=== PATIENT | male | born 1940 | race Caucasian/White ===

== ENCOUNTER 2016-07-12 12:04 | Inpatient (IN) | payer MEDICARE ==
[~2016-07-12] VITALS: Ht 188 cm; Wt 126.8 kg
[2016-07-12] VITALS (7 sets, daily range): BP systolic 102–124; BP diastolic 58–90; PULSE 63–125; RESP 16–18; O2SAT 94–97
[~2016-07-12 12:04] MED LIST: ALPH100C PO; ASPI-973 PO; CHOL10008 PO; CHOL4PAC PO; CYAN500 PO; FINA5TAB9 PO; METO50TA3 PO; PRAV20TA2 PO; TAMS0.4C98 PO
[2016-07-12] MEDS ORDERED: 0.9% Sodium Chloride 1,000 ML IV ONE ×2 (12:37→14:55)
--- NOTE | 2016-07-12 12:37 | ED.REPORT ---
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 The patient doesn't remember the episode beyond feeling weak and "sliding to the ground." However, his found him lodged between the vanity and bathtub, unable to get up on his own, and believes he fell hard against handles on the cabinet. EMS found him pale and diaphoretic with bruises on his chest and head. En route he was in A-Fib with a pulse of 178 and a BP of 66/40. The patient also reports an intermittent cough onset a couple of weeks ago. He denies fevers, chills, chest pain, shortness of breath, neck pain, or any significant injuries. Nursing Notes Stated Complaint: GLF Chief Complaint: Neuro Symptoms/ Deficits Nursing Notes Reviewed: Yes Allergies: Coded Allergies: No Known Allergies (Verified Allergy, Unknown, 11/24/14) macadamia nut oil (Verified Allergy, Unknown, nausea, chest pain, 01/08/16) Scheduled Alpha Lipoic Acid (Alpha Lipoic Acid) 100 Mg Capsule 300 MG PO QAM Aspirin (Aspirin) 81 Mg Tablet 81 MG PO QAM Cholecalciferol (Vitamin D3) (Vitamin D3) 1,000 Unit Tab.chew 1,000 UNIT PO QAM Cholestyramine/Aspartame (Cholestyramine Light Packet) 4 Gm Powd.pack 4 GM PO DAILY at 1500 Cyanocobalamin (Vitamin B12) 500 Mcg Tablet 500 MCG PO QAM Finasteride (Finasteride) 5 Mg Tablet 5 MG PO QAM Metoprolol Tartrate (Metoprolol Tartrate) 50 Mg Tablet 50 MG PO BID Pravastatin (Pravastatin) 20 Mg Tablet 20 MG PO QAM Tamsulosin (Flomax) 0.4 Mg Capsule 0.4 MG PO BID General Time Seen by MD: 12:27 Chief Complaint Other (Syncope and Ground Level Fall) Hx Obtained From: Patient, Spouse, EMS Arrived By: Ambulance Sudden in Onset?: Yes Onset Occurred: Just prior to arrival Symptom Duration: Duration unknown Caused by: Fall on ground Context: Occurred at: Home injury Location: : Chest (Chest wall): Head Quality: Painful Severity: Current: Moderate Severity: Maximum: Moderate Associated with: Reports: Cough, Weakness, Denies: Fever, Shortness of breath Pertinent Negative: Relieved by nothing Context Related History: Reports Cancer, Reports Diabetes mellitus Recent Healthcare: No recent doctor visit Similar Sx Previous: No Past Medical History Past Medical History 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 Colloid cyst Reports: Cancer (stem cell seminoma), Diabetes mellitus, Hypertension Past Surgical History Total knee surgery x2 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 Brain surgery - colloid cyst removal Reports: Appendectomy, Cholecystectomy Smoking History Former Smoker Social History Alcohol Use: 1-3 per day Other Social History: Ambulatory Status Walker Review of Systems Full Review of Systems Constitutional: Denies: Chills, Fever Respiratory: Reports: Non-productive cough, Denies: Shortness of breath Cardiovascular: Denies: Chest pain Musculoskeletal: Denies: Neck pain Skin: Reports Bruising, Reports Diaphoresis Neurologic: Reports: Change LOC, Syncope, Weakness Complete sys rev & neg: except as marked. Physical Exam Vital Signs Vital Signs Date Time Temp Pulse Resp B/P Pulse Ox O2 Delivery O2 Flow Rate FiO2 07/12/16 15:35 101 16 105/90 97 Room Air 07/12/16 12:33 36.8 125 16 116/58 94 Room Air 2 Initial VS: Reviewed Psychiatric: Mood/affect normal, Behavior normal, Normal thought content General/Constitutional: Awake, Alert, No acute distress Head / Eyes: Normocephalic, No scleral icterus, Conjunctiva NL Trauma - General: Positive: Abrasion (Multiple ) ENT: Airway patent, Mucous membranes moist, Gums/dentition NL Trauma - General: Positive: Ecchymosis (Over upper lip) Neck: Supple, Full range of motion, Non-tender, No midline vertebral tend Respiratory / Chest: Breath sounds NL, Breath sounds = bilat, No respiratory distress Trauma - General: Positive: Abrasion (Anterior chest), Ecchymosis (Anterior chest), Hematoma (Anterior chest) Cardiovascular: Heart sounds NL, No murmurs Heart Rate / Rhythm: Positive: Irregular rhythm, Tachycardia Abdomen: Soft Trauma - General: Positive: Abrasion (Upper abdomen), Ecchymosis (Upper abdomen ), Hematoma (Upper abdomen) Upper Extremities Upper Extremity / MS: Neurologic intact, Vascular intact Trauma / Burn / Environmental: Positive: Ecchymosis (Volar aspect of right forearm ) Lower Extremity / Pelvis / MS: No deformity, No edema Trauma / Burn / Environmental: Positive: Hematoma (Over left knee) Ankle / Foot: No deformity, No edema Trauma / Burn / Environmental: Positive: Ecchymosis (Bruising over dorsum of right foot and toes ) Neurologic: Oriented X3, Speech NL Focal Weakness: Positive: Weakness diffuse L, Weakness diffuse R Interpretation & Diagnostics Lab Results Interpretation Result Diagram: 07/12/16 1305 07/12/16 1305 Test 07/12/16 12:25 07/12/16 13:05 Urine Color Yellow (YELLOW) Urine Appearance Clear (CLEAR,HAZY) Urine pH 5.0 (5.0-8.0) Urine Specific [place] 1.021 (1.003-1.035) Urine Protein Negativemg/dL (NEG,TRACE) Urine Glucose (UA) Negativemg/dL (NEGATIVE) Urine Ketones Negativemg/dL (NEGATIVE) Urine Occult Blood Small (NEGATIVE) Urine Nitrite Negative (NEGATIVE) Urine Bilirubin Negative (NEGATIVE) Urine Urobilinogen Normalmg/dL (NORMAL) Urine Leukocyte Esterase Negative (NEGATIVE) Urine RBC 3-10/hpf (0-2) Urine WBC 0-5/hpf (0-5) Urine Epithelial Cells Few/hpf (NONE-MOD) Urine Crystals None seen (NONE SEEN) Urine Bacteria Moderate/hpf (NONE-FEW) Urine Hyaline Casts Occasional/lpf (NONE) Urine Granular Casts None seen (NONE SEEN) Urine Waxy Casts None seen (NONE SEEN) Urine Red Blood Cell Casts None seen (NONE SEEN) Urine White Blood Cell Casts None seen (NONE SEEN) Urine Mucus None seen (None Seen) Urine Trichomonas None seen (NONE SEEN) Urine Yeast None (NONE SEEN) Urinalysis Comment None Urine Culture Reflexed Indicated White Blood Count 12.4th/mm3 (3.8-10.1) Red Blood Count 4.68mil/mm3 (4.40-5.80) Hemoglobin 14.3g/dL (13.8-17.2) Hematocrit 42.3% (41.0-50.0) Mean Corpuscular Volume 90.4fL (81-100) Mean Corpuscular Hemoglobin 30.6pg (27.0-35.0) Mean Corpuscular Hemoglobin Concent 33.8% (32.0-37.0) Red Cell Distribution Width 12.9% (12.3-15.4) Platelet Count 116bil/L (150-400) Neutrophils (%) (Auto) 62.3% (40-74) Lymphocytes (%) (Auto) 31.2% (14-46) Monocytes (%) (Auto) 5.6% (4-12) Eosinophils (%) (Auto) 0.6% (0-5) Basophils (%) (Auto) 0.1% (0-3) D-Dimer 1.9mg/L (<0.50) Sodium Level 139mEq/L (134-144) Potassium Level 3.9mEq/L (3.5-5.2) Chloride Level 103mEq/L (97-108) Carbon Dioxide Level 19mmol/L (18-29) Blood Urea Nitrogen 22mg/dL (8-27) Creatinine 1.75mg/dL (0.76-1.27) Estimat Glomerular Filtration Rate 41mL/min (>59) Glucose Level 112mg/dL (60-99) Lactic Acid Level 3.5mmol/L (0.4-2.0) Calcium Level 9.0mg/dL (8.5-10.1) Total Bilirubin 0.6mg/dL (0.0-1.2) Aspartate Amino Transf (AST/SGOT) 30U/L (0-50) Alanine Aminotransferase (ALT/SGPT) 28U/L (0-44) Alkaline Phosphatase 57U/L (25-160) Troponin T 0.032ug/L (0.0-0.011) Pro-B-Type Natriuretic Peptide 609.4pg/mL (0-376) Total Protein 6.4g/dL (6.4-8.4) Albumin 4.0g/dL (3.4-5.0) Procalcitonin < 0.05ng/mL (See Comment) ECG Interpretation ECG Interpretation: New atrial fibrillation rate 109 Abnormal R-wave progression, present on previous ECG 11/24/14 Left ventricular hypertrophy Time: 12:49 Interpreted by: ED physician X-Ray Chest Interpretation Chest Xray Interpretation: IMPRESSION: No acute cardiopulmonary disease process. Dictated by: Rhea Chen MD, PhD on 07/12/2016 at 13:13 View: Portable, 1 view Interpretation / Wet Read by: Interpret - Radiologist CT Head Interpretation IMPRESSION: 1. No acute intracranial findings. 2. Stable right frontal encephalomalacia and postsurgical change. 3. Findings likely associated with microvascular ischemic changes. Dictated by: Deena Branch M.D. on 07/12/2016 at 13:59 Study: Head CT no contrast Interpretation / Wet Read by: Interpret - Radiologist Re-Eval/Medical Decision Med Decision/Clinical Course Presents after syncopal episode with hypotension and newly noted atrial fibrillation initially rapid ventricular response. No evidence of intracranial hemorrhage. Elevated troponin, new atrial fibrillation with relatively rate controlled without additional medications in the 100 range Given aspirin after head CT was cleared started on IV heparin. Will be admitted for additional observation and presumed cardiac event unclear with the initial event was a conversion to atrial fibrillation or whether he actually had some type of non-STEMI with resultant atrial fibrillation. Blood pressure responded nicely to fluids. He has been chest pain free throughout the entire event. He does have significant abdominal bruising contusion hematoma from the syncopal episode where he hit presumably the sink in the bathroom when he fell forward. He also has multiple scratches and abrasions over the scalp forearms knees and toes all due to the fall related to the syncopal episode Source of Hx: Old records Time of Eval: 14:09 Patient Status: Condition improved Re-Evaluation/Progress Note: Patient rechecked. Time of Eval: 14:58 Patient Status: Condition improved Re-Evaluation/Progress Note: Discussed with patient and his x-ray, CT, and lab results, diagnosis, and plan for admit. Patient and his agree with plan for care and all questions were addressed. Consultation : Referral / Consult Name: Mahad Day MD Consulted With: Hospitalist Call Returned at: 15:12 Clinical Research Coordinator: Agrees with eval, Agrees with plan, Accepts admit Counseled Regarding: Diagnosis, Lab results, Need for admission Discharge & Departure Primary Impression: New onset atrial fibrillation Additional Impressions: Syncope Elevated lactic acid level Elevated troponin Fall from ground level Multiple contusions Renal insufficiency Disposition: ADMITTED TO HOSPITAL Discharge Condition All VS Reviewed: Yes Condition: Stable Referrals: Dario Mcwilliams MD (PCP) Crit Care Except Billable Proc Time Spent: 30-74 minutes Services Performed: Patient management by me, Time spent at bedside, Reviewing test results, Reviewing imaging, Discussing patient care, Documentation in record, Time with fam/surrogate Scribe Attestation Portions of this note were transcribed by Sherly Nobles. I, Dr. Conley, personally performed the history, physical exam, and medical decision-making; I reviewed and confirmed the accuracy of the information in the transcribed note. Signed by: Saji Grady, 07/12/2016, 15:12 copies to: Dario Mcwilliams MD Risk-Head Prob / Injury Nexus C-Spine Criteria No post midline tendernes, Not intoxicated, Normal level or alertness, No focal neuro deficits, No distracting injuries Head CT Imaging Patient Presents WITH: Loss of Conciousness Non Contrast CT Indicated For: >/= 60 yrs Age (with history of brain surgery) Short Term Memory Loss Trauma - Clavicle & Up WITH Loss of Conciousness RF Statements: Risk factors reviewed Kristen Conley MD Jul 12, 2016 12:37 SHERLY NOBLES Jul 12, 2016 13:05
--- NOTE | 2016-07-12 13:15 | DRSVH ---
PROCEDURE: X-RAY CHEST ONE VIEW, PORTABLE ([id number]) INDICATIONS: syncope TECHNIQUE: One view of the chest was acquired. COMPARISON: [facility], , CHEST 1VW (PORTABLE), 11/24/2014, 11:10. FINDINGS: Surgical changes and devices: Median sternotomy wires. Lungs and pleura: No pleural effusions or pneumothorax. Lungs are clear. Mediastinum: Mediastinal contours appear normal. Heart size is normal. Bones and chest wall: No suspicious bony lesions. Overlying soft tissues appear unremarkable. IMPRESSION: No acute cardiopulmonary disease process. Dictated by: Rhea Chen MD, PhD on 07/12/2016 at 13:13 Approved by: Rhea Chen MD, PhD on 07/12/2016 at 13:13
[2016-07-12 13:25] LABS: APPEARANCE,URINE CLEAR (CLEAR,HAZY); COLOR,URINE YELLOW (YELLOW); OCCULT BLOOD,URINE SMALL (NEGATIVE); UROBILINOGEN,URINE NORMAL (NORMAL)
[2016-07-12 13:25] LABS: BASOPHILS % (AUTO) 0.1 % (0-3); EOSINOPHILS % (AUTO) 0.6 % (0-5); MONOCYTES % (AUTO) 5.6 % (4-12); Mean Corpuscular Hemoglobin 30.6 pg (27.0-35.0); Mean Corpuscular Volume 90.4 fL (81-100); NEUTROPHILS % (AUTO) 62.3 % (40-74); Platelet Count 116 bil/L (150-400)
--- NOTE | 2016-07-12 14:04 | DRSVH ---
PROCEDURE: CT BRAIN WITHOUT CONTRAST ([id number]) INDICATIONS: syncope, fall with contusion head/face TECHNIQUE: Noncontrast 4.5 mm thick angled axial sections acquired from the foramen magnum to the vertex, with c oronal reformats. COMPARISON: [facility], CT, BRAIN W/O CONTRAST, 12/21/2011, 2:06. [facility] , CT, BRAIN W/O CONTRAST, 11/24/2014, 12:28. FINDINGS: Image quality: Excellent. CSF spaces: Basal cisterns are patent. No extra-axial fluid collections. The ventricles are symmet gilson in size and shape. Brain: No intracranial bleeds or masses. There is cerebral volume loss for age, with resultant vent ricular and sulcal prominence. There are periventricular and deep white matter chronic small vessel ischemic changes. Encephalomalacia in the right frontal lobe is redemonstrated unchanged from the von dy dated 11/24/14. There is intracranial internal carotid artery atherosclerosis. Skull and face: Right frontal craniotomy is redemonstrated. Calvarium and visualized facial bones ap pear intact, without suspicious lesions. Sinuses: There is a small left maxillary sinus mucous retention cyst. Visualized sinuses and mastoid s are otherwise clear. IMPRESSION: 1. No acute intracranial findings. 2. Stable right frontal encephalomalacia and postsurgical change. 3. Findings likely associated with microvascular ischemic changes. Dictated by: Deena Branch M.D. on 07/12/2016 at 13:59 Approved by: Deena Branch M.D. on 07/12/2016 at 13:59
[2016-07-12 14:05] LABS: TROPONIN T 0.032 ug/L (0.0-0.011)
[2016-07-12] MEDS ORDERED: Cholestyramine Resin Powder 4 Gm Packet PO ONE (14:50)
[2016-07-12] MEDS ORDERED: Heparin 5,000 Unit/mL Inj IVPUSH ONE (14:55)
[2016-07-12] MEDS ORDERED: Heparin 25K Unit/500mL 0.45 NS 25,000 UNIT in IV Premix 1 EACH IV ONE (14:55)
[2016-07-12] MEDS ORDERED: Ondansetron 2 mg/mL 2 mL Inj IVPUSH PRN (15:35)
[2016-07-12] MEDS ORDERED: Alum-Mag Hydrox-Simeth 30 mL Suspension PO PRN (15:35)
[2016-07-12] MEDS ORDERED: ALPHA LIPOIC ACID 300 MG PO SCH (17:40)
--- NOTE | 2016-07-12 21:13 | PCM.HPMED ---
Subjective Date of Service Jul 12, 2016 Primary Provider: Admitting Physician: Primary Care Physician: Dario Mcwilliams MD Attending Physician: Admit Status: From the Emergency Department Chief Complaint: Altered mental status following ground level fall History of Present Illness: Tonio Quinteros is a 75-year-old gentleman with a history of hypertension, hyperlipidemia, normal pressure hydrocephalus, chronic kidney disease, stage 3, diabetes mellitus type 2, sleep apnea and testicular cancer who presented to the ED after a syncopal episode and ground level fall. He states that he has been in usual health and went into the bathroom this morning to take his medications and the last thing he remembers is "sliding to the ground". He denies prodromal symptoms, loss of bladder or bowel control, history of seizures or prior syncope. He he uncertain how long he lost consciousness and his reported finding the patient wedged between the vanity and the bathtub and called EMS. Patient and endorse severe weakness immediately following the event and he was noted by EMS to be pale, diaphoretic and unable to get up on his own. He was noted to be in atrial fibrillation by paramedics and EKG in the ED confirmed atrial fibrillation with RVR. Patient denies prior history of irregular heart beat or diagnosis of atrial fibrillation. He denies fever, chills, chest pain or palpitations, shortness of breath, abdominal pain, nausea , vomiting, diarrhea or constipations. Endorses a non-productive cough, diaphoresis, and increased weakness, he walks with a walker at baseline due to neuropathy with gait disturbances following several back surgeries. In the ED, he was afebrile and tachycardic with a heart rate of 105-125. He was normotensive and slightly hypotensive at times with SBP in the mid 90s to low 100s and diastolic 50s-70s. Respiratory rate was 16 and he was satting 94-97% on room air. EKG showed atrial fibrillation/flutter with a heart rate of 109, left ventricular hypertrophy and abnormal R-wave progression when compared to previous EKG (11/24/14). Chest xray showed no acute process and CT head was negative for acute intracranial findings. Labs were significant for a slightly elevated white blood cell count at 12.4, lactic acid of 3.5, serum glucose 112, troponin 0.032, proBNP 609.4 and procalcitonin <0.05. He was given 2L of normal saline, aspirin after the head CT , started on heparin drip and admitted to rule out possible cardiac event as underlying cause of new onset atrial fibrillation. . Review of Systems: Pertinent positives and negatives as above in HPI. Complete review of systems conducted and otherwise negative. Allergies Coded Allergies: No Known Allergies (Verified Allergy, Unknown, 11/24/14) macadamia nut oil (Verified Allergy, Unknown, nausea, chest pain, 01/08/16) Home Medications Alpha Lipoic Acid 300 MG PO DAILY Aspirin 81 MG PO DAILY Cholecalciferol 1,000 UNIT PO DAILY Cholestyramine/Aspartame 4 GM PO BID Cyanocobalamin 1,000 MCG PO DAILY Finasteride 5 MG PO DAILY Metoprolol Tartrate 50 MG PO BID Pravastatin 20 MG PO DAILY Tamsulosin 0.4 MG PO DAILY PMH Hypertension Hyperlipidemia Heart murmur Sleep apnea,wears CPAP Chronic kidney disease, stage 3 Diabetes mellitus, type 2-uncontrolled Gallbladder disease Testicular cancer 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 Family History Patient denies family history of cardiovascular disease or diabetes. Reports extensive family history of cancers, including both parents and siblings. 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 External ears without defect. PERRLA, Anicteric sclerae, moist conjunctivae, and no lid lag. Oropharynx free of erythema and cobble stoning with moist mucosa. Neck: Supple with full range of motion. No jugular venous distension. No bruits. No lymphadenopathy or thyromegaly. Ecchymosis right mandible and neck. Cardiovascular: Irregularly irregular rhythm with no murmurs, rubs, or gallops appreciated Pulmonary: Clear to auscultation bilaterally with no crackles, wheezes, or rhonchi. Normal respiratory effort with no use of accessory muscles. Abdomen: Bowel tones present. Soft, nontender, nondistended. No hepatosplenomegaly or masses appreciated. Large contusion, anterior chest and upper abdomen. Sternal and abdominal surgical scars noted. Extremities: Brawny discoloration of lower extremities bilaterally, onychomycosis, no clubbing, cyanosis, edema, or lymphadenopathy appreciated. Skin: Normal temperature except distal lower extremities slightly cooler left foot > right, normal turgor and texture; no rash, ulcers, or subcutaneous nodules appreciated. Neurological: Cranial nerves II-XII grossly intact. Decreased muscles strength bilateral lower extremities left > right. Peripheral neuropathy. Patient with known gait impairment, uses walker at baseline. Psychiatric: Normal mood and affect. Alert and oriented to person, place, and time. Lab and Diagnostics Labs Laboratory Tests 07/12/16 12:25: Urine Color Yellow, Urine Appearance Clear, Urine pH 5.0, Urine Specific Portia 1.021, Urine Protein Negative, Urine Glucose (UA) Negative, Urine Ketones Negative, Urine Occult Blood Small, Urine Nitrite Negative, Urine Bilirubin Negative, Urine Urobilinogen Normal, Urine Leukocyte Esterase Negative , Urine RBC 3-10, Urine WBC 0-5, Urine Epithelial Cells Few, Urine Crystals None seen, Urine Bacteria Moderate, Urine Hyaline Casts Occasional, Urine Granular Casts None seen, Urine Waxy Casts None seen, Urine Red Blood Cell Casts None seen, Urine White Blood Cell Casts None seen, Urine Mucus None seen, Urine Trichomonas None seen, Urine Yeast None, Urinalysis Comment None, Urine Culture Reflexed Indicated 07/12/16 13:05: White Blood Count 12.4, Red Blood Count 4.68, Hemoglobin 14.3, Hematocrit 42.3, Mean Corpuscular Volume 90.4, Mean Corpuscular Hemoglobin 30.6, Mean Corpuscular Hemoglobin Concent 33.8, Red Cell Distribution Width 12.9, Platelet Count 116, Neutrophils (%) (Auto) 62.3, Lymphocytes (%) (Auto) 31.2, Monocytes ( %) (Auto) 5.6, Eosinophils (%) (Auto) 0.6, Basophils (%) (Auto) 0.1, D-Dimer 1.9 , Sodium Level 139, Potassium Level 3.9, Chloride Level 103, Carbon Dioxide Level 19, Blood Urea Nitrogen 22, Creatinine 1.75, Estimat Glomerular Filtration Rate 41, Glucose Level 112, Lactic Acid Level 3.5, Calcium Level 9.0 , Total Bilirubin 0.6, Aspartate Amino Transf (AST/SGOT) 30, Alanine Aminotransferase (ALT/SGPT) 28, Alkaline Phosphatase 57, Troponin T 0.032, Pro-B -Type Natriuretic Peptide 609.4, Total Protein 6.4, Albumin 4.0, Procalcitonin < 0.05 Result Diagram: 07/12/16 1305 07/12/16 1305 Microbiology Blood and urine cultures pending. X-Rays, CTs and MRIs X-RAY CHEST ONE VIEW, PORTABLE (07/12/16) IMPRESSION: No acute cardiopulmonary disease process. Dictated and approved by: Rhea Chen MD, PhD on 07/12/2016 at 13:13 CT BRAIN WITHOUT CONTRAST (07/12/16) IMPRESSION: 1. No acute intracranial findings. 2. Stable right frontal encephalomalacia and postsurgical change. 3. Findings likely associated with microvascular ischemic changes. Dictated and approved by: Deena Branch M.D. on 07/12/2016 at 13:59 . 12-lead ECG EKG showed atrial fibrillation/flutter with a heart rate of 109, left ventricular hypertrophy and abnormal R-wave progression when compared to previous EKG (11/24/14). Assessment & Plan Tonio Quinteros is a 75-year-old gentleman with a history of hypertension, hyperlipidemia, normal pressure hydrocephalus, chronic kidney disease, stage 3, diabetes mellitus type 2, sleep apnea and testicular cancer who presented to the ED after a syncopal episode and ground level fall resulted in multiple contusions. Admitted for new onset atrial fibrillation with rapid ventricular response and to rule out ACS as underlying etiology for Afib. 1. New onset atrial fibrillation with RVR, present on admission. Active. - EKG shows atrial fibrillation/flutter with heart rate 109, new compared to previous EKG (2014) - Initial troponin 0.032. - MEtoprolol for rate control - Trend troponin - Consider consult to cardiology for possible cardioversion. 2. Syncope, present on admission. Active. - Unknown cause, etiologies to consider dehydration, afib w/RVR, ACS, orthostatic hypotension, CVA, seizure. - Pt denies prior hx of syncope or seizures. CT head negative for acute intracranial process. - Hypotensive of admission with reportedly decreased oral intake, due to pain and difficulty ambulating. - Elevated lactic acid, troponin, proBNP and D-dimer. - Chest xray unremarkable - Continue IV fluids cautiously, trend troponin and lactic acid. - Carotid doppler, echocardiogram ordered. 3. Possible NSTEMI, present on admission. Active. - Pt has significant risk factors for cardiovascular disease including: age, gender, hypertension, hyperlipidemia, and diabetes. - Initial troponin elevated. Pt asymptomatic. - EKG without acute ischemic changes. - Continue heparin, aspirin, and statin. - NPO after midnight for possible procedures - Echocardiogram ordered 4. Elevated troponin, unknown chronicity. present on admission active. - May be due to demand ischemia secondary to Afib w/RVR, ACS or CKD. - Consider consult to cardiology, if trends up - Echo, heparin, aspirin and statin as above. - Trend troponin 5. Acute on chronic renal failure, present on admission. Active. - Pt has history of CKD stage III - Creatinine 1.75, above apparent baseline of ~1.2 - Avoid nephrotoxic medications. 6. Hypotension, acute. Present on admission. Active. - Pt hypertensive at baseline. - Likely due to dehydration - Received 2liters of normal saline in ED - Continue IV fluids cautiously, pending Echo results. - Monitor electrolytes, replace as needed 7. Multiple contusions, present on admission. Active. - Pt found in on floor in bathroom by his . Likely hit chest and chin on sink. - Monitor clinically for evidence of active bleeding. - Pt on heparin drip, will trend H/H and PTT. Chronic conditions, present on admission. 1. Hypertension- continue home dosing Metoprolol tartrate 50mg po BID 2. Hyperlipidemia- continue home dosing statin 3. Obstructive sleep apnea-wears CPAP, is to bring in 4. Diabetes mellitus, type 2- HbA1c pending, serum glucose 112, pt reports controlled without medications. low-dose correctional insulin. 5. History of testicular cancer 6. Benign prostatic hyperplasia- continue home dosing of finasteride and tamsulosin 7. Neuropathy- continue home dosing of alpha Lipoic acid Acetaminophen-fever/headache/mild/moderate pain Antiemetics, as needed Bowel regimen, as needed. Patient Status: Patient is admitted under observation status with expected length of stay less than 2 midnights due to severity of presenting symptoms, risk of adverse event, and complexity of treatment plan. Pain Evaluation: Adequate Pain Control GI Prophylaxis: Not indicated VTE Mechanical Devices: Intermittant Pneumatic CD Resuscitation Status: DNR/DNI:Do Not Resuscitate/Intubate Attending Statement The patient was seen and examined together with Dr. Morelos on and I agree with the history, exam and plan as outlined in the note above. . Marimar Morelos DO Jul 12, 2016 15:41 Mahad Day MD Jul 26, 2016 17:13
[2016-07-12] MEDS ORDERED: Acetaminophen IV 1,000 MG in IV Premix 1 EACH IV PRN (21:50)
[2016-07-12] MEDS ORDERED: Heparin 25K Unit/500mL 0.45 NS 25,000 UNIT in IV Premix 1 EACH IV SCH (21:50)
[2016-07-12] MEDS: Heparin 5,000 Unit/mL Inj IVPUSH PRN (22:26)
--- NOTE | 2016-07-12 22:37 | DRSVH ---
PROCEDURE: US BILATERAL DUPLEX DOPPLER IMAGING OF THE CAROTIDS ([id number]) INDICATIONS: syncope TECHNIQUE: Color and pulse Doppler interrogation was performed of both carotid systems, with image documentation and velocity measurements. COMPARISON: None. FINDINGS: All stenosis calculations are based on NASCET criteria. Right side: Brachial blood pressure: 105/69 mm Hg. Common carotid artery peak systolic velocity: 83 cm/sec. Internal carotid artery peak systolic velocity: 52 cm/sec. Internal carotid artery end diastolic velocity: 18 cm/sec. External carotid artery peak systolic velocity: 76 cm/sec. ICA/CCA peak systolic ratio: 0.63. Barr scale imaging description: Calcified plaque in the origin of the right internal carotid artery Percent internal carotid artery stenosis: Less than 50%. Vertebral artery: Flow direction is antegrade. Left side: Brachial blood pressure: Not measured due to the presence of intravenous access. Common carotid artery peak systolic velocity: 81 cm/sec. Internal carotid artery peak systolic velocity: 57 cm/sec. Internal carotid artery end diastolic velocity: 22 cm/sec. External carotid artery peak systolic velocity: 97 cm/sec. ICA/CCA peak systolic ratio: 0.7. Barr scale imaging description: Calcified plaque in the origin of the left internal carotid artery Percent internal carotid artery stenosis: Less than 50%. Vertebral artery: Flow direction is antegrade. IMPRESSION: Less than 50% stenosis of the origins of the internal carotid arteries bilaterally. Dictated by: Rhea Chen MD, PhD on 07/12/2016 at 22:35 Approved by: Rhea Chen MD, PhD on 07/12/2016 at 22:35
[2016-07-13] VITALS (7 sets, daily range): BP systolic 107–132; BP diastolic 64–79; PULSE 61–75; RESP 12–20; O2SAT 94–98
[2016-07-13 04:16] LABS: Mean Corpuscular Hemoglobin 30.3 pg (27.0-35.0); Mean Corpuscular Volume 91.2 fL (81-100); Platelet Count 117 bil/L (150-400)
[2016-07-13 04:17] LABS: BASOPHILS % (AUTO) 0 % (0-3); EOSINOPHILS % (AUTO) 3 % (0-5); MONOCYTES % (AUTO) 2 % (4-12); NEUTROPHILS % (AUTO) 25 % (40-74)
[2016-07-13] MEDS: Heparin 5,000 Unit/mL Inj IVPUSH PRN (04:26)
[2016-07-13 05:04] LABS: Magnesium 2.2 mg/dL (1.6-2.6)
[2016-07-13 05:06] LABS: TROPONIN T 0.038 ug/L (0.0-0.011)
--- NOTE | 2016-07-13 14:40 | DRSVH ---
[facility] [address] [place] [address] Echocardiogram Report Name: JEYSON ARAON DStudy Date: Height: 74 in Hospital Exam Location: [facility] Weight: 275 lb Gender: Male BSA: 2.5 m2 : 1940 Age: 75 yrs BP: 107/64 mmHg Reason For Study: A-FIB., SYNCOPE WITH FALL Ordering Physician: Performed By: Tegan Mao Referring Physician: Jenny Mcwilliams Interpretation Summary 1) Borderline concentric left ventricular hypertrophy with normal size, wall motion, and systolic function (EF 65-70%). 2) Normal right ventricular size and function. 3) Severely dilated left atrium. 4) Calcific mitral valve with mild transmitral inflow gradient (mean 4.6mmHg). 5) Mild aortic stenosis (mean gradient 18mmHg, valve area 1.9cm2). 6) Mild aortic regurgitation. 7) Moderately dilated ascending aorta (diameter 4.5cm) and mildly dilated aortic root (diameter 4.2cm). 8) Sinus rhythm present during the study. 9) Compared to the Echo done 12/22/2011, no significant change. Procedure: A two-dimensional transthoracic echocardiogram with color flow and Doppler was performed. The study quality was technically difficult. The apical views were difficult to obtain and are suboptimal in quality. A contrast injection of Definity was performed to improve assessment of LV function. Contrast was injected into an intravenous site in the left arm. A total of 3 cc of contrast was given. Comparison is made with the echocardiogram of 12-22-2011. The suprasternal notch views were difficult to obtain and are suboptimal in quality. The subcostal views were not obtained due to no visualization. The patient was in normal sinus rhythm during the exam. Left Ventricle: The LVOT diameter is 2.3 cm. The LVOT velocity is 142.9 cm/sec. The left ventricle is normal in size. There is borderline concentric left ventricular hypertrophy. Left ventricular systolic function is normal without focal wall motion abnormalities. The ejection fraction is estimated to be 65-70%. Right Ventricle: The right ventricle grossly appears normal in size with probable normal systolic function. Atria: The left atrium is severely dilated. The right atrium is mildly dilated. There is no Doppler evidence for an atrial septal defect. Mitral Valve: There is mild to moderate mitral annular calcification. The mitral valve leaflets appear mildly thickened, but open well. The mitral valve leaflets are mildly calcified. Mild transmitral inflow gradient with mean of 4.6mmHg. There is trace mitral regurgitation. Aortic Valve: The aortic valve is trileaflet. The aortic valve is mildly calcified. The peak aortic velocity is 281 cm/sec. The aortic valve mean gradient is 18 mmHg. The peak aortic velocity on the previous exam was 237 cm/sec. There is mild aortic stenosis. There is mild aortic regurgitation. Tricuspid Valve: The tricuspid valve is not well visualized, but is grossly normal. No tricuspid regurgitation. Pulmonary artery pressures cannot be estimated because of the lack of a measurable TR jet velocity. Pulmonic Valve: The pulmonic valve is not well visualized. There is a trace or physiologic amount of pulmonic regurgitation. Great Vessels: The aortic root is mildly dilated. The ascending aorta is moderately enlarged. The pulmonary artery is not well visualized, but is probably normal size. The inferior vena cava was not visualized. Pericardium/ Pleura There is no pericardial effusion. There is no pleural effusion. MMode/2D Measurements & Calculations LVIDd: 5.7 cm LA dimension: 5.3 cm RA long axis LVOT diam LVIDs: 3.0 cm FS: 48.0 % LA A2 area: 30.1 cm RA area AoV Opening IVSd: 1.0 cm LA A4 area: 33.4 cm LVPWd: 1.1 cm LA length (vol): 7.7 cm: 22.0 cm Ao root diam LA vol: 111.0 ml RA vol LA vol index : 67.2 ml asc Aorta RA Diam: 4.5 cm : 44.6 ml/m2 : 27.0 mm2 LV singh. diameter/BSA LV sys. diameter/BSA (cm/m^2): 2.3 (cm/m^2): 1.2 Doppler Measurements & Calculations Ao V2 max MV E max grant MV E/A: 1.1 PA V2 max : 291.3 cm/sec : 155.3 cm/sec Med Peak E' Grant : 86.3 cm/sec Ao max PG MV A max grant PA mean PG : 33.9 mmHg : 140.6 cm/sec E/E' med: 44.3 Ao mean PG MV P1/2t: 138.6 msec Lat Peak E' Grant PA Accel Time : 18.3 mmHg MVA(VTI): 1.7 cm2 : 0.14 sec LVOT Max Grant E/E' lat: 38.6 : 142.9 cm/sec Pulm A Revs Dur STELLA(I,D): 1.9 cm sev ratio MV A dur: 0.17 sec AI P1/2t : 806.7 msec AI dec slope : 128.7 cm/s2c MV V2 mean MV P1/2t max grant Ao V2 mean LV V1 max PG : 101.5 cm/sec : 203.6 cm/sec MV mean PG MVA(P1/2t): 1.6 cm2 Ao V2 VTI: 59.8 cm LV V1 VTI STELLA(V,D): 2.0 cm2 : 28.7 cm MV V2 VTI: 69.2 cm MV dec time : 0.47 sec PA V2 mean STELLA indexed to BSA Pulm A Revs Dur - MV : 64.3 cm/sec (cm^2/m^2): 0.78 A Dur: -0.03 msec Reading Physician:02:40 PM
--- NOTE | 2016-07-13 15:24 | NUR ---
Evaluation completed. Please go to "Notes" then click on "Assessments and Notes" (bottom left corner of screen). Then select appropriate discipline tab on top of screen.
--- NOTE | 2016-07-13 16:03 | NUR ---
Social Work: Initial Assessment D: Per EMR review, pt is a 75 year old male admitted for New Afib with RVR, NStemi, Syncope. Pt is Medicare with AARP supplement. PCP is Dario Mcwilliams MD. NOK is Iesha Quinteros, , . Advanced directives completed but not on file- SIGNALING PROJECT ENGINEER requested from pt. Readmit score not entered at this time. Pt discussed with PT, current recommendation is for Skilled Rehab. Pt is on day 1 of stay and will require 2 more midnights in order to access skilled rehab benefit. SIGNALING PROJECT ENGINEER discussed this with , the pt will be here through the weekend and receive a neurological workup on Friday. SIGNALING PROJECT ENGINEER met with pt at bedside. Sw role explained. See initial assessment. Pt lives on [address] with his . Pt uses a walker at baseline. SIGNALING PROJECT ENGINEER reviewed PT recommendation. Pt is in total agreement that he requires additional strengthening. Pt has a history at [facility] and [facility]. He does not want to go back to these facilities. Pt provided with SNF choice list. Pt requesting referrals sent to [facility] and [facility]. SIGNALING PROJECT ENGINEER faxed referrals to both facilities and provided access. [facility] and [facility] on chart. A: Pt who will likely require skilled rehab at time of discharge for continued strengthening and functional mobility improvement. P: [facility] and [facility] reviewing; SIGNALING PROJECT ENGINEER to continue to follow. LORENE Hopson Addendum: 07/13/16 at 1614 by RICHARD RENEE Amended: Links added.
[2016-07-13] MEDS: Cholestyramine Resin Powder 4 Gm Packet PO SCH ×2 (17:24→20:36)
--- NOTE | 2016-07-13 17:28 | PCM.PNMED ---
Subjective Date of Service Jul 13, 2016 Felicia Quinteros is a 75-year-old gentleman with a history of hypertension, hyperlipidemia, chronic kidney disease stage 3, diabetes mellitus type 2, normal pressure hydrocephalus, sleep apnea and testicular cancer who presented to the ED after a syncopal episode and ground level fall that resulted in multiple contusions. Admitted to the [facility] overnight to rule out underlying cardiac etiology as inciting event for new onset of atrial fibrillation and further evaluation of syncopal episode. This morning the patient is sitting up in bed, appears comfortable and is asking to eat. He endorses discomfort related to the bruising on his anterior chest and neck but otherwise is without complaint. Denies chest pain or palpitations, back/neck pain, nausea or vomiting. Exam Vital Signs Vital Sign - Last Date Time Temp Pulse Resp B/P Pulse Ox O2 Delivery O2 Flow Rate FiO2 07/13/16 16:12 70 20 124/77 94 Room Air 07/13/16 08:34 36.6 07/12/16 18:08 2 Intake and Output 07/12/16 07/12/16 07/13/16 Cumulative From/Thru 15:00 23:00 07:00 07/12/16 12:33 - 07/13/16 06:01 Intake Total 1000 ml 1000 ml 0 ml 2000 ml Output Total 675 ml 675 ml Balance 1000 ml 1000 ml -675 ml 1325 ml Intake Oral 0 ml 0 ml IV Total 1000 ml 1000 ml 2000 ml Output Urine Total 675 ml 675 ml # Voids 5 5 # Bowel Movements 0 0 Exam General appearance: Well-developed, overweight, elderly male, in no acute distress, appropriately interactive HEENT: Normocephalic, abrasions/bruising noted on scalp. External ears without defect. PERRLA, Anicteric sclerae.Moist mucosa. Neck: Supple with full range of motion, nontender. No jugular venous distension. Traumatic hematoma,neck and right angle of jaw. Cardiovascular: Regular rate and rhythm with no murmurs, rubs, or gallops appreciated Pulmonary: Clear to auscultation bilaterally with no crackles, wheezes, or rhonchi. Normal respiratory effort with no use of accessory muscles. Abdomen: Bowel tones present. Soft, nontender, nondistended. No masses appreciated. Large contusion, anterior chest and upper abdomen. Sternal and abdominal surgical scars noted. Extremities: Brawny discoloration of lower extremities bilaterally, onychomycosis, no clubbing, cyanosis, edema, or lymphadenopathy appreciated. Skin: Normal temperature except distal lower extremities slightly cooler left foot > right, normal turgor and texture; no rash, ulcers, or subcutaneous nodules appreciated. Neurological: Cranial nerves II-XII grossly intact. Decreased muscles strength bilateral lower extremities left > right. Peripheral neuropathy. Patient with known gait impairment, uses walker at baseline. IVs and Medications Medications Reviewed: Medications were reviewed in detail Lab and Diagnostics White Blood Count 15.6, Red Blood Count 4.32, Mean Corpuscular Volume 91.2, Mean Corpuscular Hemoglobin 30.3, Mean Corpuscular Hemoglobin Concent 33.2, Red Cell Distribution Width 12.9, Platelet Count 117, Neutrophils (%) (Auto) 25, Lymphocytes (%) (Auto) 70, Monocytes (%) (Auto) 2, Eosinophils (%) (Auto) 3, Basophils (%) (Auto) 0 Sodium Level 141, Potassium Level 4.4, Chloride Level 104, Carbon Dioxide Level 21, Blood Urea Nitrogen 21, Creatinine 1.64, Estimat Glomerular Filtration Rate 44, Glucose Level 114, Lactic Acid Level 1.8, Calcium Level 8.5, Magnesium Level 2.2, Total Bilirubin 0.5, Aspartate Amino Transf (AST/SGOT) 33, Alanine Aminotransferase (ALT/SGPT) 24, Alkaline Phosphatase 49, Troponin T 0.038, Total Protein 5.5, Albumin 3.4 Hemoglobin 12.9, Hematocrit 38.3, Activated Partial Thromboplast Time 46.7 Result Diagram: 07/13/16 1103 07/13/16 0356 Microbiology Urine culture grew STREP, PROBABLE ENTEROCOCCI SUSCEPTIBILITIES TO FOLLOW. Blood cultures with no growth so far. X-Rays, CTs and MRIs X-RAY CHEST ONE VIEW, PORTABLE (07/12/16) IMPRESSION: No acute cardiopulmonary disease process. Dictated and approved by: Rhea Chen MD, PhD on 07/12/2016 at 13:13 CT BRAIN WITHOUT CONTRAST (07/12/16) IMPRESSION: 1. No acute intracranial findings. 2. Stable right frontal encephalomalacia and postsurgical change. 3. Findings likely associated with microvascular ischemic changes. Dictated and approved by: Deena Branch M.D. on 07/12/2016 at 13:59 . 12-lead ECG EKG showed atrial fibrillation/flutter with a heart rate of 109, left ventricular hypertrophy and abnormal R-wave progression when compared to previous EKG (11/24/14). Cardiac Echo Impressions Echocardiogram Report- Interpretation Summary 1) Borderline concentric left ventricular hypertrophy with normal size, wall motion, and systolic function (EF 65-70%). 2) Normal right ventricular size and function. 3) Severely dilated left atrium. 4) Calcific mitral valve with mild transmitral inflow gradient (mean 4.6mmHg). 5) Mild aortic stenosis (mean gradient 18mmHg, valve area 1.9cm2). 6) Mild aortic regurgitation. 7) Moderately dilated ascending aorta (diameter 4.5cm) and mildly dilated aortic root (diameter 4.2cm). 8) Sinus rhythm present during the study. 9) Compared to the Echo done 12/22/2011, no significant change. Assessment & Plan Tonio Quinteros is a 75-year-old gentleman with a history of hypertension, hyperlipidemia, normal pressure hydrocephalus, chronic kidney disease stage 3, diabetes mellitus type 2, sleep apnea and testicular cancer who presented to the ED after a syncopal episode and ground level fall resulted in multiple contusions. Admitted for new onset atrial fibrillation with rapid ventricular response and to rule out ACS as underlying etiology for Afib as well as further evaluation of syncopal episode. 1. New onset atrial fibrillation with RVR, present on admission. Resolved. - EKG showed Afib/flutter w/heart rate of 109, new compared to previous EKG ( 2014) - Initial troponin 0.032 and remained elevated but stable, 0.038, 0.039, 0.038. - Converted to sinus rhythm around 11pm (07/12/16) - Continue metoprolol tartrate for rate control, 50mg BID - Consider consult to cardiology for possible cardioversion. - Echocardiogram, as above. 2. Syncope, present on admission. Active. - Likely secondary to dehydration/hypovolemia along w/Afib with RVR. - Pt denies prior hx of syncope or seizures. CT head negative for acute intracranial process. - Hypotensive of admission with reportedly decreased oral intake, due to pain and difficulty ambulating. - Lactic acid normalized; troponin, as above - Stop IV fluids, advancing diet and pt with good oral intake. - Carotid doppler no identifiable cause for syncope. Internal carotid arteries with < 50% stenosis - Echocardiogram, as above 3. Possible NSTEMI, present on admission. Active. - Less likely due to stable troponin, asymptomatic, EKG without acute ischemic changes. - Converted to normal sinus rhythm overnight and remains asymptomatic. - Pt with enlarging hematomas on anterior chest/neck from GLF. Discontinue heparin drip. - Continue aspirin, statin due to multiple cardiovascular risk factors. 4. Acute on chronic renal failure, present on admission. Active. - Pt has history of CKD stage III - Creatinine 1.75, above apparent baseline of ~1.2 - Avoid nephrotoxic medications. - Daily BMP 5. Hypotension, acute. Present on admission. Improving - Pt hypertensive at baseline. - Likely due to dehydration - Received 2liters of normal saline in ED - Echocardiogram, as above. - Stop IV fluids, patient with good oral intake - Monitor electrolytes, replace as needed 6. Multiple contusions, present on admission. Active. - Pt found in on floor in bathroom by his . Likely hit chest and chin on sink. - Enlarging neck hematoma, will discontinue heparin drip. - Monitor CBC 7. Elevated troponin, unknown chronicity. present on admission. Stable - Like multifactorial due to demand ischemia secondary to Afib with RVR and CKD. - Echocardiogram, as above. Stop heparin drip. - Continue to monitor clinically Chronic conditions, present on admission. 1. Hypertension- continue home dosing Metoprolol tartrate 50mg po BID 2. Hyperlipidemia- continue home dosing statin 3. Obstructive sleep apnea-wears CPAP, is to bring in home machine 4. Diabetes mellitus, type 2- HbA1c pending, serum glucose 112, pt reports controlled without medications. low-dose correctional insulin. 5. Benign prostatic hyperplasia- continue home dosing of finasteride and tamsulosin 6. Neuropathy- continue home dosing of alpha Lipoic acid 7. History of testicular cancer. Acetaminophen-fever/headache/mild/moderate pain Antiemetics, as needed Bowel regimen, as needed. Disposition: Anticipated discharge in 2-3 days, pending SNF placement and further evaluation of worsening gait disturbances and lower extremity weakness. Pain Evaluation: Adequate Pain Control GI Prophylaxis: Not indicated VTE Mechanical Devices: Intermittant Pneumatic CD Resuscitation Status: DNR/DNI:Do Not Resuscitate/Intubate Attending Statement The patient was seen and examined together with Dr. Morelos on 07/13/2016 and I agree with the history, exam and plan as outlined in the note above. . Marimar Morelos DO Jul 13, 2016 16:37 Mahad Day MD Jul 26, 2016 17:12
--- NOTE | 2016-07-13 18:22 | NUR ---
Bruising/Heparin drip Patient has large bruise on R side neck/chin r/t syncopal episode and fall. Patient on cardiac hep drip protocol. Bruise appeared to be increasing in size towards end of shift. Marked borders of bruise nad notified MD. Hep drip stopped and will continue to monitor.
[2016-07-14] VITALS (10 sets, daily range): BP systolic 118–129; BP diastolic 62–76; PULSE 60–76; RESP 12–18; O2SAT 94–97
[2016-07-14 03:18] LABS: BASOPHILS % (AUTO) 0.1 % (0-3); EOSINOPHILS % (AUTO) 1.8 % (0-5); MONOCYTES % (AUTO) 6.7 % (4-12); Mean Corpuscular Hemoglobin 29.9 pg (27.0-35.0); Mean Corpuscular Volume 91.9 fL (81-100); NEUTROPHILS % (AUTO) 20.4 % (40-74); Platelet Count 114 bil/L (150-400)
--- NOTE | 2016-07-14 03:37 | NUR ---
Pain and bruising. Patient bruising to the right neck has remained relatively unchanged throughout my shift. Patient moving all extremities well and A/Ox4. ABC's intact to baseline and patient reports mild pain. Patient reports that he does not need pain medications.
[2016-07-14] MEDS: Cholestyramine Resin Powder 4 Gm Packet PO SCH ×3 (03:55→15:00)
--- NOTE | 2016-07-14 12:26 | NUR ---
Observation information provided and explained to pt and his . Per she can not care for him at home, and is very angry that he is observation status and cannot go to SNF. I did try to explain Medicare's criteria, and they are aware that this was sent to secondary reviewer. SCANNING CLERK notified of anticipated difficulties with discharging pt.
--- NOTE | 2016-07-14 14:19 | NUR ---
Social Work: Continued Discharge Planning D: Pt discussed with KIKE TOSCANO MD place inpatient order on 07/13 however pt still does not meet inpatient criteria. CLINICAL VETERINARIAN notified MD at morning rounds and requested that she write order for Observation. MD states pt will still need MRI and neuro workup. KIKE RN and CLINICAL VETERINARIAN spoke with pt and about observation status and impact on SNF discharge. Pt and spouse are not happy about this. They state that they do not have the financial funds available to privately pay for skilled rehab. They declined to have CLINICAL VETERINARIAN get private pay rates stating that they already know that it will be thousands of dollars. They state that if pt is not switched to inpatient status and they cannot access SNF benefit they will be "forced to go home and figure it out." They state that if pt is able to access SNF they would like referral sent to [facility] of [facility] and [facility] as it is closer to home. Pt initially stated he did not want to go back there but he has changed his mind. Referral will be made to [facility] if pt switches to inpt status. [facility] has accepted the pt with Emily to follow. Private pay rate is $297/night for semi-private room; does not include therapies. [facility] accepted the pt pending bed availability. A: Pt who requiring 2 person assist during admission P: CLINICAL VETERINARIAN to continue to follow; if pt remains observation, pt to discharge home; if pt is switched to inpatient and has qualifying stay referral will be sent to [facility] [place] for review. LORENE Hopson
--- NOTE | 2016-07-14 16:14 | DRSVH ---
PROCEDURE: MRI LUMBAR SPINE WITH AND WITHOUT CONTRAST ([id number]) INDICATIONS: weakness, neuropathy TECHNIQUE: Noncontrast sagittal T1 spin echo and T2 fast spin echo, sagittal STIR, axial T1 and T2 fast spin ech o through the lumbar spine. In cases with scoliosis, additional coronal T2 fast spin echo may be per formed. After the administration of contrast, sagittal and axial T1 spin echo with fat saturation th rough the lumbar spine. COMPARISON: [facility], MR, LUMBAR SPINE W/O CONTRAST, 07/11/2014, 13:24. FINDINGS: Image quality: Excellent. Alignment and curvature: Grade 1 anterolisthesis of L4 on L5. Grade 1 retrolisthesis of L2 on L3. Marrow: Diffuse endplate degenerative signal changes, and spurring. Scattered small Schmorl's nodes. No acute vertebral body compression fractures. No suspicious marrow enhancement. Postsurgical cutler es related to posterior decompression from L2-L4. Spinal cord: Conus medullaris terminates at the L1-L2 level. Visualized spinal cord demonstrates no rmal signal, without suspicious enhancement. Paraspinous soft tissues: Mild diffuse ill-defined enhancement within the operative bed presumably po stoperative granulation tissue, for example prominent enhancing tissue seen on image 28 series 9 dors al to the canal however no definite intracanal extension or mass effect on the cord. L1-L2: Severe disc degeneration and broad-based posterior disc bulge and bilateral facet disease. Mil d residual canal narrowing. Severe bilateral foraminal stenoses, left greater than right. L2-L3: Broad-based posterior disc bulge and bilateral facet disease. Mild residual canal narrowing, m oderate left and [id number] right foraminal stenoses, no interval change. L3-L4: Broad-based posterior disc bulge and bilateral facet disease. Mild to moderate residual canal stenosis. Severe bilateral foraminal stenoses. No interval change L4-L5: Unchanged severe L4-L5 canal stenosis. Severe bilateral foraminal stenoses as before L5-S1: Broad-based posterior disc bulge and bilateral facet disease. Mild canal stenosis. Severe bila teral foraminal narrowing. Overall, no interval change IMPRESSION: Overall, no definite interval change since 07/11/14 as detailed above by spinal level. Di ffuse bilateral lumbar foraminal stenoses without definite interval change. Severe L4-L5 canal stenosis as before Postsurgical changes as above from L2-L4 with posterior decompression Grade 1 anterolisthesis of L4 on L5 Grade 1 retrolisthesis of L2 on L3 Dictated by: Waldemar Tristan M.D. on 07/14/2016 at 16:12 Approved by: Waldemar Tristan M.D. on 07/14/2016 at 16:12
--- NOTE | 2016-07-14 16:53 | NUR ---
UTI Patients UA came back positive for UTI. Patient started on PO Cipro BID. Patient denies symptoms of UTI, VSS.
--- NOTE | 2016-07-14 18:25 | PCM.PNMED ---
Subjective Date of Service Jul 14, 2016 Felicia Quinteros is a 75-year-old gentleman with a past medical history significant for hypertension, hyperlipidemia, chronic kidney disease stage 3, diabetes mellitus type 2, peripheral neuropathy, sleep apnea and testicular cancer who presented to the [facility] ED after a syncopal episode and ground level fall that resulted in multiple contusions. Hospital day #3. Overnight: There were no acute events. Telemetry overnight: Sinus rhythm, heart rate 60-70s, with frequent PVCs. The patient is resting in bed comfortably and in no acute distress. He denies headache, sore throat, cough, shortness of breath, chest pain, abdominal pain, nausea, vomiting, fever, chills, dysuria, or diarrhea. He is voiding without difficulty. He complains of constipation. He is up with 2 person assistance. He reports profound weakness and is unable to stand or walk on his own that he believes was abrupt in onset compounded onto a chronic component. . Exam Vital Signs Vital Sign - Last Date Time Temp Pulse Resp B/P Pulse Ox O2 Delivery O2 Flow Rate FiO2 07/14/16 11:27 36.8 62 16 118/74 96 Room Air 07/12/16 18:08 2 Intake and Output 07/13/16 07/13/16 07/14/16 Cumulative From/Thru 15:00 23:00 07:00 07/12/16 12:33 - 07/14/16 04:37 Intake Total 178 ml 910 ml 3088 ml Output Total 875 ml 1550 ml Balance 178 ml 35 ml 1538 ml Intake Oral 910 ml 910 ml IV Total 178 ml 2178 ml Output Urine Total 875 ml 1550 ml # Voids 5 # Bowel Movements 0 Exam General appearance: Well-developed, overweight, elderly male, in no acute distress, appropriately interactive HEENT: Normocephalic, abrasions/bruising noted on scalp. External ears without defect. PERRLA, Anicteric sclerae.Moist mucosa. Neck: Supple with full range of motion, nontender. No jugular venous distension. Traumatic hematoma,neck and right angle of jaw. Cardiovascular: Regular rate and rhythm with no murmurs, rubs, or gallops appreciated Pulmonary: Clear to auscultation bilaterally with no crackles, wheezes, or rhonchi. Normal respiratory effort with no use of accessory muscles. Abdomen: Bowel tones present. Soft, nontender, nondistended. No masses appreciated. Large contusion, anterior chest and upper abdomen. Sternal and abdominal surgical scars noted. Extremities: Brawny discoloration of lower extremities bilaterally, onychomycosis, no clubbing or cyanosis. Trace pitting edema bilaterally. Skin: Normal temperature; no rash, ulcers, or subcutaneous nodules appreciated. Neurological: Cranial nerves II-XII grossly intact. Decreased muscles strength bilaterally in lower extremities L> R. Peripheral neuropathy. Patient with known gait impairment, uses walker at baseline. IVs and Medications Medications Reviewed: Medications were reviewed in detail Lab and Diagnostics Item Value Date Time Calcium Level 8.2 mg/dL L 07/14/16 0230 Total Bilirubin 0.6 mg/dL 07/14/16 0230 Aspartate Amino Transf (AST/SGOT) 26 U/L 07/14/16 0230 Alanine Aminotransferase (ALT/SGPT) 21 U/L 07/14/16 0230 Alkaline Phosphatase 49 U/L 07/14/16 0230 Total Protein 5.4 g/dL L 07/14/16 0230 Albumin 3.4 g/dL 07/14/16 0230 Result Diagram: 07/14/16 0230 07/14/16 023 Microbiology Urine culture grew Enterococcus resistant to tetracycline. Blood cultures show no growth after 24 hours. . X-Rays, CTs and MRIs X-RAY CHEST ONE VIEW, PORTABLE (07/12/16) IMPRESSION: No acute cardiopulmonary disease process. Dictated and approved by: Rhea Chen MD, PhD on 07/12/2016 at 13:13 CT BRAIN WITHOUT CONTRAST (07/12/16) IMPRESSION: 1. No acute intracranial findings. 2. Stable right frontal encephalomalacia and postsurgical change. 3. Findings likely associated with microvascular ischemic changes. Dictated and approved by: Deena Branch M.D. on 07/12/2016 at 13:59 . 12-lead ECG EKG showed atrial fibrillation/flutter with a heart rate of 109, left ventricular hypertrophy and abnormal R-wave progression when compared to previous EKG (11/24/14). Cardiac Echo Impressions Echocardiogram Interpretation Summary 1) Borderline concentric left ventricular hypertrophy with normal size, wall motion, and systolic function (EF 65-70%). 2) Normal right ventricular size and function. 3) Severely dilated left atrium. 4) Calcific mitral valve with mild transmitral inflow gradient (mean 4.6mmHg). 5) Mild aortic stenosis (mean gradient 18mmHg, valve area 1.9cm2). 6) Mild aortic regurgitation. 7) Moderately dilated ascending aorta (diameter 4.5cm) and mildly dilated aortic root (diameter 4.2cm). 8) Sinus rhythm present during the study. 9) Compared to the Echo done 12/22/2011, no significant change. . Assessment & Plan Tonio Quinteros is a 75-year-old gentleman with a past medical history significant for hypertension, hyperlipidemia, chronic kidney disease stage 3, diabetes mellitus type 2, peripheral neuropathy, sleep apnea and testicular cancer who presented to the [facility] ED after a syncopal episode and ground level fall that resulted in multiple contusions. Admitted for new onset atrial fibrillation with rapid ventricular response and to rule out ACS as underlying etiology for, as well as, further evaluation of syncopal episode. Hospital day # 3. 1. Syncope, present on admission. Active. - Likely secondary to dehydration/hypovolemia, atrial fibrillation with RVR, and urinary tract infection. - Patient denies prior history of syncope or seizures. CT head negative for acute intracranial process. - Hypotensive on admission with reportedly decreased oral intake and pain and difficulty ambulating. - Lactic acid normalized; Initial troponin 0.032 and remained elevated but stable. - Discontinued IV fluids. Encourage patient to take an fluids. - Carotid Doppler ultrasound shows no identifiable cause for syncope. Internal carotid arteries with < 50% stenosis as above. - Echocardiogram, as above. 2. Profound acute on chronic lower extremity weakness, present on admission. Active. - Patient has profound neuropathy of his lower extremities and fell onto his knees and has 2 large contusions to bilateral knees which may be attributing. - Ordered lumbar MRI without contrast to assess lumbar spine and possible radiculopathy or spinal stenosis. - Patient has foot drop on the right. Profound weakness in an L4-L5 distribution of lower extremities L> R. - Ordered CPK as patient is on a statin. - Patient has seen Dr. flower in the past. Consider neurology consultation for evaluation. 3. Acute complicated urinary tract infection, present on admission. Active. - Likely contributing to the patient's profound weakness and started ciprofloxacin 400 mg IV every 12 hours. - Urine culture grew out enterococcus species resistant to tetracycline. - Consider ID consult for possible ESBL? 4. Acute on chronic renal failure, present on admission. Active. - Likely secondary to prerenal azotemia and acute urinary tract infection. - Patient has CKD stage III at baseline. - Creatinine 1.75, above apparent baseline of ~1.2 - Avoid nephrotoxic medications. - Monitor urine output. 5. New onset atrial fibrillation with RVR, present on admission. Resolved. - EKG showed Afib/flutter with a heart rate of 109, new compared to previous EKG (2014). - Initial troponin 0.032 and remained elevated but stable, 0.038, 0.039, 0.038. - Converted to sinus rhythm around 11pm on 07/12/16. - Continue metoprolol tartrate 50 mg twice a day for rate control. - Echocardiogram, as above. 6. Acute hypotension, present on admission. Improving - The patient is hypertensive at baseline and was hypotensive likely secondary to dehydration. - He received 2L of normal saline in ED. - Echocardiogram, as above. - Stopped IV fluids and continue to encourage good oral intake. - Monitor electrolytes and replace as needed. 7. Multiple contusions, present on admission. Active. - The patient was found down in the bathroom and likely hit his chest and chin on bathroom sink. - Enlarging neck hematoma, discontinued heparin drip. - Monitor hemoglobin and hematocrit closely. 8. Elevated troponin, unknown chronicity. present on admission. Stable - Like multifactorial due to demand ischemia secondary to Afib with RVR and CKD. - Echocardiogram, as above. Stopped heparin drip. - Continue to monitor clinically. Chronic conditions: Diarrhea, chronic. - Patient has had diarrhea since his cholecystectomy. Likely secondary to overproduction and chronic release of bile. - Continue cholestyramine once daily. Hypertension, chronic. - Continue home dosing metoprolol titrate 50mg twice a day. Hyperlipidemia, chronic. - Continue pravastatin 20 mg daily at bedtime. Obstructive sleep apnea on CPAP, chronic. - Encourage patient to use home machine. Diabetes mellitus type II, non-insulin using. Chronic. - HbA1c 6.0%. - Patient reports that this is been controlled with diet and exercise alone. - Continue low-dose correctional scale insulin. Benign prostatic hyperplasia, , chronic. - Continue home dosing of finasteride 5 mg daily and tamsulosin 0.4 mg twice a day. Idiopathic neuropathy, chronic. - Continue home dosing of alpha Lipoic acid History of testicular cancer. Acetaminophen-fever/headache/mild/moderate pain Antiemetics, as needed Bowel regimen, as needed. Disposition: Anticipated discharge in 2-3 days, pending SNF placement and further evaluation of worsening gait disturbances and lower extremity weakness. . GI Prophylaxis: Not indicated VTE Mechanical Devices: Intermittant Pneumatic CD Resuscitation Status: DNR/DNI:Do Not Resuscitate/Intubate Attending Statement The patient was seen and examined together with Dr. Acuña on 07-14-16 and I agree with the history, exam and plan as outlined in the note above. Brook Acuña DO Jul 14, 2016 11:59 Magan Kilgore MD Jul 15, 2016 16:54
[2016-07-14] MEDS: Ciprofloxacin Inj 400 MG in IV Premix 1 EACH IV SCH (19:36)
[2016-07-14] MEDS: Polyethylene Glycol (PEG) 17 Gm Powder PO PRN (19:38)
[2016-07-15] VITALS (8 sets, daily range): BP systolic 86–127; BP diastolic 59–73; PULSE 60–99; RESP 16–22; O2SAT 94–97
[2016-07-15 03:08] LABS: BASOPHILS % (AUTO) 0.1 % (0-3); EOSINOPHILS % (AUTO) 1.9 % (0-5); MONOCYTES % (AUTO) 2.3 % (4-12); Mean Corpuscular Volume 91.3 fL (81-100); NEUTROPHILS % (AUTO) 21.6 % (40-74); Platelet Count 132 bil/L (150-400)
[2016-07-15 03:33] LABS: Magnesium 2.1 mg/dL (1.6-2.6); Phosphorus 4.1 mg/dL (2.5-4.9)
--- NOTE | 2016-07-15 03:49 | NUR ---
Bruising and sleep Patients neck is slightly more bruised this evening. Patient reports that his neck feels sore but that it is not severely painful. Patient requested that I let him sleep as much as I can. Room was darkened and door was closed. Patient was checked on intermittently.
[2016-07-15] MEDS: Polyethylene Glycol (PEG) 17 Gm Powder PO PRN (09:09)
[2016-07-15] MEDS: Ciprofloxacin Inj 400 MG in IV Premix 1 EACH IV SCH ×2 (09:12→19:58)
--- NOTE | 2016-07-15 11:29 | NUR ---
Gave access and faxed facesheet to [facility].
--- NOTE | 2016-07-15 11:32 | NUR ---
Case Management: IMM given and explained to pt at 11:20. Any STOKES RN
--- NOTE | 2016-07-15 11:39 | NUR ---
GI/ P - Pt c/o constipation/impaction, pt states that it hurts for him to sit in chair from the pain. shift supervisor rn had administered Senna and Miralax with no results. He had tried to have a bowel movement on the bedside commode with a resulting small hard bowel movement. I - Administered Senna and Miralax with prune juice and hot tea. Encouraged patient to drink extra fluids. E - Pt was able to have an extra large, firm bowel movement, with relief of pain S - Pt call light within reach, bed in low locked position, upper rails up only
--- NOTE | 2016-07-15 12:03 | NUR ---
[facility] can accept with to follow. Updated RN CASE MGR
[2016-07-15] MEDS: Cholestyramine Resin Powder 4 Gm Packet PO SCH (15:13)
--- NOTE | 2016-07-15 16:03 | PCM.PNMED ---
Subjective Date of Service Jul 15, 2016 Felicia Quinteros is a 75-year-old gentleman with a history of hypertension, hyperlipidemia, chronic kidney disease stage 3, diabetes mellitus type 2, normal pressure hydrocephalus, sleep apnea and testicular cancer who presented to the ED after a syncopal episode and ground level fall that resulted in multiple contusions. Hospital day #4 No acute events overnight. Per nursing, patient patient c/o constipation. He was given Senna and Miralax with only a small, firm bowel movement reported. Patient endorses constipation this morning, stating that he has not had a bowel movement in 3 or 4 days. He denies abdominal pain, nausea, vomiting, chest pain , shortness of breath, headache or dizziness. He reports ongoing generalized weakness and bilateral lower extremity weakness as well as increased urinary frequency. Denies dysuria or hematuria. Exam Vital Signs Vital Sign - Last Date Time Temp Pulse Resp B/P Pulse Ox O2 Delivery O2 Flow Rate FiO2 07/15/16 11:38 36.9 82 18 110/67 97 Room Air 07/12/16 18:08 2 Intake and Output 07/14/16 07/14/16 07/15/16 Cumulative From/Thru 15:01 23:01 07:01 07/12/16 12:33 - 07/15/16 06:41 Intake Total 1040 ml 960 ml 5088 ml Output Total 500 ml 1175 ml 3225 ml Balance 540 ml -215 ml 1863 ml Intake Oral 1040 ml 760 ml 2710 ml IV Total 200 ml 2378 ml Output Urine Total 500 ml 1175 ml 3225 ml # Voids 5 # Bowel Movements 0 Exam General appearance: Well-developed, overweight, elderly male, in no acute distress, appropriately interactive HEENT: Normocephalic, abrasions/bruising noted on scalp. External ears without defect. PERRLA, Anicteric sclerae.Moist mucosa. Neck: Supple with full range of motion, nontender. No jugular venous distension. Traumatic hematoma,neck and right angle of jaw. Cardiovascular: Regular rate and rhythm with no murmurs, rubs, or gallops appreciated Pulmonary: Clear to auscultation bilaterally with no crackles, wheezes, or rhonchi. Normal respiratory effort with no use of accessory muscles. Abdomen: Bowel tones present. Soft, diffusely tender, nondistended. No masses appreciated. Large contusion, anterior chest and upper abdomen. Sternal and abdominal surgical scars noted. Extremities: Brawny discoloration of lower extremities bilaterally, onychomycosis, no clubbing, cyanosis, edema, or lymphadenopathy appreciated. Skin: Normal temperature except distal lower extremities slightly cooler left foot > right, normal turgor and texture; no rash, ulcers, or subcutaneous nodules appreciated. Neurological: Cranial nerves II-XII grossly intact. Decreased muscles strength bilateral lower extremities left > right. Peripheral neuropathy. Patient with known gait impairment, uses walker at baseline. IVs and Medications Medications Reviewed: Medications were reviewed in detail Lab and Diagnostics White Blood Count 14.2, Red Blood Count 4.04, Hemoglobin 12.1, Hematocrit 36.9, Mean Corpuscular Volume 91.3, Mean Corpuscular Hemoglobin 30.0, Mean Corpuscular Hemoglobin Concent 32.8, Red Cell Distribution Width 12.8, Platelet Count 132, Neutrophils (%) (Auto) 21.6, Lymphocytes (%) (Auto) 73.9, Monocytes ( %) (Auto) 2.3, Eosinophils (%) (Auto) 1.9, Basophils (%) (Auto) 0.1 Sodium Level 137, Potassium Level 4.4, Chloride Level 103, Carbon Dioxide Level 22, Blood Urea Nitrogen 22, Creatinine 1.46, Estimat Glomerular Filtration Rate 50, Glucose Level 106, Calcium Level 8.3, Phosphorus Level 4.1, Magnesium Level 2.1, Total Bilirubin 0.6, Aspartate Amino Transf (AST/SGOT) 30, Alanine Aminotransferase (ALT/SGPT) 23, Alkaline Phosphatase 53, Total Creatine Kinase 159, Total Protein 5.6, Albumin 3.3 Result Diagram: 07/15/16 0300 07/15/16 0300 Microbiology Urine culture grew Enterococcus resistant to tetracycline. Blood cultures show no growth after 24 hours. . X-Rays, CTs and MRIs X-RAY CHEST ONE VIEW, PORTABLE (07/12/16) IMPRESSION: No acute cardiopulmonary disease process. Dictated and approved by: Rhea Chen MD, PhD on 07/12/2016 at 13:13 CT BRAIN WITHOUT CONTRAST (07/12/16) IMPRESSION: 1. No acute intracranial findings. 2. Stable right frontal encephalomalacia and postsurgical change. 3. Findings likely associated with microvascular ischemic changes. Dictated and approved by: Deena Branch M.D. on 07/12/2016 at 13:59 . 12-lead ECG EKG showed atrial fibrillation/flutter with a heart rate of 109, left ventricular hypertrophy and abnormal R-wave progression when compared to previous EKG (11/24/14). Cardiac Echo Impressions Echocardiogram Interpretation Summary 1) Borderline concentric left ventricular hypertrophy with normal size, wall motion, and systolic function (EF 65-70%). 2) Normal right ventricular size and function. 3) Severely dilated left atrium. 4) Calcific mitral valve with mild transmitral inflow gradient (mean 4.6mmHg). 5) Mild aortic stenosis (mean gradient 18mmHg, valve area 1.9cm2). 6) Mild aortic regurgitation. 7) Moderately dilated ascending aorta (diameter 4.5cm) and mildly dilated aortic root (diameter 4.2cm). 8) Sinus rhythm present during the study. 9) Compared to the Echo done 12/22/2011, no significant change. . Assessment & Plan Tonio Quinteros is a 75-year-old gentleman with a history of hypertension, hyperlipidemia, normal pressure hydrocephalus, chronic kidney disease stage 3, diabetes mellitus type 2, sleep apnea and testicular cancer who presented to the ED after a syncopal episode and ground level fall resulted in multiple contusions. Admitted for new onset atrial fibrillation with rapid ventricular response and to rule out ACS as underlying etiology for Afib as well as further evaluation of syncopal episode. Hospital day #4. 1. Acute on chronic lower extremity weakness, present on admission. Active. - Hx of multiple back surgeries and chronic neuropathy of his lower extremities with ongoing gait disturbance. Ambulates with walker at baseline. - Lumbar MRI shows no definite interval change from 07/11/14. B/l lower ext bruising, concern for underlying knee injury related to the GLF contributing gait disturbance. - Continue physical therapy. Consider neurology consultation for evaluation, if symptoms do not start to improve. 2. Acute complicated urinary tract infection, present on admission. Active. - Likely contributing to patient's weakness. - Urine culture positive for enterococcus species resistant to tetracycline. - Continue ciprofloxacin 400 mg IV every 12 hours. 3. Syncope, present on admission. Resolved. - Likely secondary to dehydration/hypovolemia along w/Afib with RVR and mild aortic stenosis. - Pt denies prior hx of syncope or seizures. CT head negative for acute intracranial process. - Carotid doppler no identifiable cause for syncope. Internal carotid arteries with < 50% stenosis - Echocardiogram, as above - Lactic acid normalized; troponin slightly elevated but stable. 4. New onset atrial fibrillation with RVR, present on admission. Resolved. - EKG showed Afib/flutter w/heart rate of 109, new compared to previous EKG ( 2014) - Initial troponin 0.032 and remained elevated but stable, 0.038, 0.039, 0.038. - Converted to sinus rhythm around 11pm (07/12/16) - Continue metoprolol tartrate for rate control, 50mg BID - Echocardiogram, as above. 5. Acute on chronic renal failure, present on admission. Active. - Pt has history of CKD stage III - Creatinine 1.75, above apparent baseline of ~1.2 - Avoid nephrotoxic medications and encourage po intake. - Daily BMP 6. Hypotension, acute. Present on admission. Resolved. - Likely due to dehydration. Pt hypertensive at baseline. - Fluid responsive, rec'd 2L normal saline 7. Multiple contusions, present on admission. Active. - Pt found in on floor in bathroom by his . Likely hit chest and chin on sink. - Enlarging neck hematoma. Discontinued heparin drip, hospital day#2. - Monitor CBC 8. Elevated troponin, unknown chronicity. present on admission. Stable - Like multifactorial due to demand ischemia secondary to Afib with RVR and CKD. - Echocardiogram, as above. Heparin drip stopped on day#2, as ACS less likely and pt with enlarging hematomas. - Continue to monitor clinically 9. Possible NSTEMI, present on admission. Resolved. - Less likely due to stable troponin, asymptomatic, EKG without acute ischemic changes. - Converted to normal sinus rhythm. Remains asymptomatic. - Continue aspirin, statin due to multiple cardiovascular risk factors. 10. Chronic Hypertension, present on admission. Active - Continue home dosing of metoprolol tartrate 50mg po BID 11. Chronic Hyperlipidemia, present on admission. Active. - Continue home dosing statin 12. Chronic diabetes mellitus, type 2. present on admission. Active. - Reportedly controlled without medications. - HbA1c 6.0 - Serum glucose 106-121. - Low-dose correctional insulin as needed. 13. Diarrhea, chronic. present on admission. Active. - Patient has had diarrhea since his cholecystectomy. Likely secondary to overproduction and chronic release of bile. - Continue cholestyramine once daily. 14. Benign prostatic hyperplasia, chronic. present on admission - Continue home dosing of finasteride and tamsulosin 15. Chronic neuropathy, present on admission. Active - Continue home dosing of alpha lipoid acid 16. History of testicular cancer, present on admission. Resolved. Acetaminophen-fever/headache/mild/moderate pain Antiemetics, as needed Bowel regimen, as needed. Disposition: Anticipated discharge in 2-3 days, pending SNF placement and further evaluation of worsening gait disturbances and lower extremity weakness. . Pain Evaluation: Adequate Pain Control GI Prophylaxis: Not indicated VTE Prophylaxis: Sub-Q Heparin (Unfractionated) VTE Mechanical Devices: Intermittant Pneumatic CD Resuscitation Status: DNR/DNI:Do Not Resuscitate/Intubate Attending Statement The patient was seen and examined together with Dr. Morelos on 07-15-16 and I agree with the history, exam and plan as outlined in the note above. Marimar Morelos DO Jul 15, 2016 13:20 Magan Kilgore MD Jul 16, 2016 15:58
[2016-07-15] MEDS: Heparin 5,000 Unit/mL Inj SUBQ SCH ×2 (17:02→23:52)
[2016-07-16] VITALS (8 sets, daily range): BP systolic 103–144; BP diastolic 62–86; PULSE 59–89; RESP 16–20; O2SAT 94–97
[2016-07-16 03:33] LABS: Mean Corpuscular Volume 91.4 fL (81-100)
--- NOTE | 2016-07-16 06:43 | NUR ---
[facility] clustered per pt request to promote sleep, all VSS, no fever/pain overnight. Tele SR 60s most of night.
[2016-07-16] MEDS: Heparin 5,000 Unit/mL Inj SUBQ SCH ×3 (08:06→23:58)
[2016-07-16] MEDS: Ciprofloxacin Inj 400 MG in IV Premix 1 EACH IV SCH ×2 (08:06→20:05)
--- NOTE | 2016-07-16 12:27 | PCM.PNMED ---
Subjective Date of Service Jul 16, 2016 Felicia Quinteros is a 75-year-old gentleman with a history of hypertension, hyperlipidemia, chronic kidney disease stage 3, diabetes mellitus type 2, normal pressure hydrocephalus, sleep apnea and testicular cancer who presented to the ED after a syncopal episode and ground level fall that resulted in multiple contusions. Hospital day #4 No acute events overnight. Per nursing, patient had a restful night and remains in sinus rhythm with a heart rate in the 60s. Patient states that he had bowel movement yesterday and today, feels much better. He reports fatigue following physical therapy but endorses increased strength and states that he was able to ambulate further today. He denies abdominal pain, nausea, vomiting, chest pain, shortness of breath, headache or dizziness. He reports ongoing generalized weakness and bilateral lower extremity weakness but this appears to be improving. Denies dysuria or hematuria. Exam Vital Signs Vital Sign - Last Date Time Temp Pulse Resp B/P Pulse Ox O2 Delivery O2 Flow Rate FiO2 07/16/16 08:02 36.6 75 16 132/69 97 07/16/16 02:54 Room Air 07/12/16 18:08 2 Intake and Output 07/15/16 07/15/16 07/16/16 Cumulative From/Thru 15:00 23:00 07:00 07/12/16 12:33 - 07/16/16 06:26 Intake Total 200 ml 980 ml 300 ml 6568 ml Output Total 1000 ml 650 ml 4875 ml Balance 200 ml -20 ml -350 ml 1693 ml Intake Oral 980 ml 300 ml 3990 ml IV Total 200 ml 2578 ml Output Urine Total 1000 ml 650 ml 4875 ml # Voids 5 10 # Bowel Movements 2 2 Exam General appearance: Well-developed, overweight, elderly male, in no acute distress, appropriately interactive HEENT: Normocephalic, abrasions/bruising noted on scalp. External ears without defect. PERRLA, Anicteric sclerae.Moist mucosa. Neck: Supple with full range of motion, nontender. No jugular venous distension. Traumatic hematoma,neck and right angle of jaw. Cardiovascular: Regular rate and rhythm with no murmurs, rubs, or gallops appreciated Pulmonary: Clear to auscultation bilaterally with no crackles, wheezes, or rhonchi. Normal respiratory effort with no use of accessory muscles. Abdomen: Bowel tones present. Soft, diffusely tender, nondistended. No masses appreciated. Large contusion, anterior chest and upper abdomen. Sternal and abdominal surgical scars noted. Extremities: Brawny discoloration of lower extremities bilaterally, onychomycosis, no clubbing, cyanosis, edema, or lymphadenopathy appreciated. Skin: Normal temperature except distal lower extremities slightly cooler left foot > right, normal turgor and texture; no rash, ulcers, or subcutaneous nodules appreciated. Neurological: Cranial nerves II-XII grossly intact. Decreased muscles strength bilateral lower extremities left > right. Peripheral neuropathy. Patient with known gait impairment, uses walker at baseline. IVs and Medications Medications Reviewed: Medications were reviewed in detail Lab and Diagnostics White Blood Count 14.9, Red Blood Count 4.06, Hemoglobin 12.2, Hematocrit 37.1, Mean Corpuscular Volume 91.4, Mean Corpuscular Hemoglobin 30.0, Mean Corpuscular Hemoglobin Concent 32.9, Red Cell Distribution Width 12.9, Platelet Count 148 Sodium Level 137, Potassium Level 4.4, Chloride Level 102, Carbon Dioxide Level 22, Blood Urea Nitrogen 21, Creatinine 1.68, Estimat Glomerular Filtration Rate 43, Glucose Level 138, Calcium Level 8.8, Total Bilirubin 0.5, Aspartate Amino Transf (AST/SGOT) 30, Alanine Aminotransferase (ALT/SGPT) 29, Alkaline Phosphatase 57, Total Protein 5.5, Albumin 3.4 Result Diagram: 07/16/16 02507/16/16 025 Microbiology Urine culture grew Enterococcus resistant to tetracycline. Blood cultures show no growth after 24 hours. . X-Rays, CTs and MRIs X-RAY CHEST ONE VIEW, PORTABLE (07/12/16) IMPRESSION: No acute cardiopulmonary disease process. Dictated and approved by: Rhea Chen MD, PhD on 07/12/2016 at 13:13 CT BRAIN WITHOUT CONTRAST (07/12/16) IMPRESSION: 1. No acute intracranial findings. 2. Stable right frontal encephalomalacia and postsurgical change. 3. Findings likely associated with microvascular ischemic changes. Dictated and approved by: Deena Branch M.D. on 07/12/2016 at 13:59 . 12-lead ECG EKG showed atrial fibrillation/flutter with a heart rate of 109, left ventricular hypertrophy and abnormal R-wave progression when compared to previous EKG (11/24/14). Cardiac Echo Impressions Echocardiogram Interpretation Summary 1) Borderline concentric left ventricular hypertrophy with normal size, wall motion, and systolic function (EF 65-70%). 2) Normal right ventricular size and function. 3) Severely dilated left atrium. 4) Calcific mitral valve with mild transmitral inflow gradient (mean 4.6mmHg). 5) Mild aortic stenosis (mean gradient 18mmHg, valve area 1.9cm2). 6) Mild aortic regurgitation. 7) Moderately dilated ascending aorta (diameter 4.5cm) and mildly dilated aortic root (diameter 4.2cm). 8) Sinus rhythm present during the study. 9) Compared to the Echo done 12/22/2011, no significant change. . Assessment & Plan Tonio Quinteros is a 75-year-old gentleman with a history of hypertension, hyperlipidemia, normal pressure hydrocephalus, chronic kidney disease stage 3, diabetes mellitus type 2, sleep apnea and testicular cancer who presented to the ED after a syncopal episode and ground level fall resulted in multiple contusions. Admitted for new onset atrial fibrillation with rapid ventricular response and to rule out ACS as underlying etiology for Afib as well as further evaluation of syncopal episode. Hospital day #5. 1. Acute on chronic lower extremity weakness, present on admission. Improving - Hx of multiple back surgeries and chronic neuropathy of his lower extremities with ongoing gait disturbance. Ambulates with walker at baseline. - Lumbar MRI shows no definite interval change from 07/11/14. - Continue physical therapy. 2. Acute complicated urinary tract infection, present on admission. Active. - Likely contributing to patient's weakness. - Urine culture positive for enterococcus species resistant to tetracycline. - Continue ciprofloxacin 400 mg IV every 12 hours. 3. Syncope, present on admission. Resolved. - Likely secondary to dehydration/hypovolemia along w/Afib with RVR and mild aortic stenosis. - Pt denies prior hx of syncope or seizures. CT head negative for acute intracranial process. - Carotid doppler no identifiable cause for syncope. Internal carotid arteries with < 50% stenosis - Echocardiogram, as above - Lactic acid normalized; troponin slightly elevated but stable. 4. New onset atrial fibrillation with RVR, present on admission. Resolved. - EKG showed Afib/flutter w/heart rate of 109, new compared to previous EKG ( 2015) - Initial troponin 0.032 and remained elevated but stable, 0.038, 0.039, 0.038. - Converted to sinus rhythm around 11pm (07/12/16) - Continue metoprolol tartrate for rate control, 50mg BID - Echocardiogram, as above. 5. Acute on chronic renal failure, present on admission. Active. - Pt has history of CKD stage III - Creatinine 1.75, above apparent baseline of ~1.2 - Avoid nephrotoxic medications and encourage po intake. - Daily BMP 6. Hypotension, acute. Present on admission. Resolved. - Likely due to dehydration. Pt hypertensive at baseline. - Fluid responsive, rec'd 2L normal saline 7. Multiple contusions, present on admission. Active. - Pt found in on floor in bathroom by his . Likely hit chest and chin on sink. - Enlarging neck hematoma. Discontinued heparin drip, hospital day#2. - Monitor CBC 8. Elevated troponin, unknown chronicity. present on admission. Stable - Like multifactorial due to demand ischemia secondary to Afib with RVR and CKD. - Echocardiogram, as above. Heparin drip stopped on day#2, as ACS less likely and pt with enlarging hematomas. - Continue to monitor clinically 9. Possible NSTEMI, present on admission. Resolved. - Less likely due to stable troponin, asymptomatic, EKG without acute ischemic changes. - Converted to normal sinus rhythm. Remains asymptomatic. - Continue aspirin, statin due to multiple cardiovascular risk factors. 10. Chronic Hypertension, present on admission. Active - Continue home dosing of metoprolol tartrate 50mg po BID 11. Chronic Hyperlipidemia, present on admission. Active. - Continue home dosing statin 12. Chronic diabetes mellitus, type 2. present on admission. Active. - Reportedly controlled without medications. - HbA1c 6.0 - Serum glucose 106-121. - Low-dose correctional insulin as needed. 13. Diarrhea, chronic. present on admission. Active. - Patient has had diarrhea since his cholecystectomy. Likely secondary to overproduction and chronic release of bile. - Continue cholestyramine once daily. 14. Benign prostatic hyperplasia, chronic. present on admission - Continue home dosing of finasteride and tamsulosin 15. Chronic neuropathy, present on admission. Active - Continue home dosing of alpha lipoid acid 16. History of testicular cancer, present on admission. Resolved. Acetaminophen-fever/headache/mild/moderate pain Antiemetics, as needed Bowel regimen, as needed. Disposition: Anticipated discharge in 2-3 days, pending SNF placement and further evaluation of worsening gait disturbances and lower extremity weakness. Pain Evaluation: Adequate Pain Control GI Prophylaxis: Not indicated VTE Prophylaxis: Sub-Q Heparin (Unfractionated) VTE Mechanical Devices: Intermittant Pneumatic CD Resuscitation Status: DNR/DNI:Do Not Resuscitate/Intubate Attending Statement The patient was seen and examined together with Dr. Morelos on 07-16-16 and I agree with the history, exam and plan as outlined in the note above. Marimar Morelos DO Jul 16, 2016 12:05 Magan Kilgore MD Jul 17, 2016 08:25
[2016-07-16] MEDS ORDERED: 0.9% Sodium Chloride 250 ML ONE (13:47)
[2016-07-16] MEDS: Cholestyramine Resin Powder 4 Gm Packet PO SCH (15:04)
--- NOTE | 2016-07-16 17:50 | NUR ---
Shoulder Pain Patient c/o 10/21 shoulder pain. Pain occurs with movement and is a problem he has had for a while. Patient refused tylenol stating "I don't like tylenol and it's not that bad".
[2016-07-17] VITALS (7 sets, daily range): BP systolic 92–127; BP diastolic 54–76; PULSE 62–81; RESP 16–21; O2SAT 95–97
[2016-07-17 03:47] LABS: Mean Corpuscular Hemoglobin 30.2 pg (27.0-35.0); Mean Corpuscular Volume 91.2 fL (81-100)
--- NOTE | 2016-07-17 04:40 | NUR ---
Restful Night Night uneventful, care clustered and attempted to allow pt to sleep as much as possible, tele SR high 50s- low 60s w/ PVCs. Pt denied pain overnight.
[2016-07-17] MEDS: Heparin 5,000 Unit/mL Inj SUBQ SCH ×3 (08:26→23:47)
[2016-07-17] MEDS: Ciprofloxacin Inj 400 MG in IV Premix 1 EACH IV SCH (08:27)
[2016-07-17] MEDS: Cholestyramine Resin Powder 4 Gm Packet PO SCH (14:57)
--- NOTE | 2016-07-17 16:20 | PCM.PNMED ---
Subjective Date of Service Jul 17, 2016 Felicia Quinteros is a 75-year-old gentleman with a history of hypertension, hyperlipidemia, chronic kidney disease stage 3, diabetes mellitus type 2, normal pressure hydrocephalus, sleep apnea and testicular cancer who presented to the ED after a syncopal episode and ground level fall that resulted in multiple contusions. Hospital day #6 No acute events overnight. Per nursing, patient had a restful night, care clustered and remains in sinus rhythm on telemetry with heart rate in high 50s- low 60s with PVCs. Today, patient is resting comfortably and visiting with his . He states that he continues to feel stronger and was tired after physical therapy yesterday. He endorses left shoulder pain for which he typically takes NSAIDs for at home with adequate relief. Otherwise patient is without complaint. He denies chest pain, shortness of breath, fever, chills, headache, dizziness, abdominal pain, nausea, vomiting, diarrhea or constipation. Exam Vital Signs Vital Sign - Last Date Time Temp Pulse Resp B/P Pulse Ox O2 Delivery O2 Flow Rate FiO2 07/17/16 04:04 36.5 62 16 122/76 96 Room Air 07/12/16 18:08 2 Intake and Output 07/16/16 07/16/16 07/17/16 Cumulative From/Thru 15:00 23:00 07:00 07/12/16 12:33 - 07/17/16 01:34 Intake Total 200 ml 1320 ml 8088 ml Output Total 1050 ml 5925 ml Balance 200 ml 270 ml 2163 ml Intake Oral 1120 ml 5110 ml IV Total 200 ml 200 ml 2978 ml Output Urine Total 1050 ml 5925 ml # Voids 10 # Bowel Movements 2 Exam General appearance: Well-developed, overweight, elderly male, in no acute distress, appropriately interactive HEENT: Normocephalic, abrasions/bruising noted on scalp. External ears without defect. PERRLA, Anicteric sclerae.Moist mucosa. Neck: Supple with full range of motion, nontender. No jugular venous distension. Traumatic hematoma,neck and right angle of jaw. Cardiovascular: Regular rate and rhythm with no murmurs, rubs, or gallops appreciated Pulmonary: Clear to auscultation bilaterally with no crackles, wheezes, or rhonchi. Normal respiratory effort with no use of accessory muscles. Abdomen: Bowel tones present. Soft, diffusely tender, nondistended. No masses appreciated. Large contusion, anterior chest and upper abdomen. Sternal and abdominal surgical scars noted. Extremities: Brawny discoloration of lower extremities bilaterally, onychomycosis, no clubbing, cyanosis, edema, or lymphadenopathy appreciated. Skin: Normal temperature except distal lower extremities slightly cooler left foot > right, normal turgor and texture; no rash, ulcers, or subcutaneous nodules appreciated. Neurological: Cranial nerves II-XII grossly intact. Decreased muscles strength bilateral lower extremities left > right. Peripheral neuropathy. Patient with known gait impairment, uses walker at baseline. IVs and Medications Medications Reviewed: Medications were reviewed in detail Lab and Diagnostics White Blood Count 15.1, Red Blood Count 4.07, Hemoglobin 12.3, Hematocrit 37.1, Mean Corpuscular Volume 91.2, Mean Corpuscular Hemoglobin 30.2, Mean Corpuscular Hemoglobin Concent 33.2, Red Cell Distribution Width 12.9, Platelet Count 147 Sodium Level 135, Potassium Level 4.4, Chloride Level 101, Carbon Dioxide Level 23, Blood Urea Nitrogen 21, Creatinine 1.58, Estimat Glomerular Filtration Rate 46, Glucose Level 113, Calcium Level 8.6 Result Diagram: 07/17/16 0300 07/17/16 0300 Microbiology Urine culture grew Enterococcus resistant to tetracycline. Blood cultures show no growth after 24 hours. . X-Rays, CTs and MRIs X-RAY CHEST ONE VIEW, PORTABLE (07/12/16) IMPRESSION: No acute cardiopulmonary disease process. Dictated and approved by: Rhea Chen MD, PhD on 07/12/2016 at 13:13 CT BRAIN WITHOUT CONTRAST (07/12/16) IMPRESSION: 1. No acute intracranial findings. 2. Stable right frontal encephalomalacia and postsurgical change. 3. Findings likely associated with microvascular ischemic changes. Dictated and approved by: Deena Branch M.D. on 07/12/2016 at 13:59 . 12-lead ECG EKG showed atrial fibrillation/flutter with a heart rate of 109, left ventricular hypertrophy and abnormal R-wave progression when compared to previous EKG (11/24/14). Cardiac Echo Impressions Echocardiogram Interpretation Summary 1) Borderline concentric left ventricular hypertrophy with normal size, wall motion, and systolic function (EF 65-70%). 2) Normal right ventricular size and function. 3) Severely dilated left atrium. 4) Calcific mitral valve with mild transmitral inflow gradient (mean 4.6mmHg). 5) Mild aortic stenosis (mean gradient 18mmHg, valve area 1.9cm2). 6) Mild aortic regurgitation. 7) Moderately dilated ascending aorta (diameter 4.5cm) and mildly dilated aortic root (diameter 4.2cm). 8) Sinus rhythm present during the study. 9) Compared to the Echo done 12/22/2011, no significant change. . Assessment & Plan Tonio Quinteros is a 75-year-old gentleman with a history of hypertension, hyperlipidemia, normal pressure hydrocephalus, chronic kidney disease stage 3, diabetes mellitus type 2, sleep apnea and testicular cancer who presented to the ED after a syncopal episode and ground level fall resulted in multiple contusions. Admitted for new onset atrial fibrillation with rapid ventricular response and to rule out ACS as underlying etiology for Afib as well as further evaluation of syncopal episode. Hospital day #6. 1. Acute on chronic lower extremity weakness, present on admission. Improving - Hx of multiple back surgeries and chronic neuropathy of his lower extremities with ongoing gait disturbance. Ambulates with walker at baseline. - Lumbar MRI shows no definite interval change from 07/11/14. - Continue physical therapy and acetaminophen as needed for musculoskeletal pain 2. Acute complicated urinary tract infection, present on admission. Active. - Likely contributing to patient's weakness. - Urine culture positive for enterococcus species resistant to tetracycline. - Continue ciprofloxacin 400 mg IV every 12 hours. - Transition to oral antibiotics prior to discharge. 3. Syncope, present on admission. Resolved. - Likely secondary to dehydration/hypovolemia along w/Afib with RVR and mild aortic stenosis. - Pt denies prior hx of syncope or seizures. CT head negative for acute intracranial process. - Carotid doppler no identifiable cause for syncope. Internal carotid arteries with < 50% stenosis - Echocardiogram, as above - Lactic acid normalized; troponin slightly elevated but stable. 4. New onset atrial fibrillation with RVR, present on admission. Resolved. - EKG showed Afib/flutter w/heart rate of 109, new compared to previous EKG ( 2014) - Initial troponin 0.032 and remained elevated but stable, 0.038, 0.039, 0.038. - Converted to sinus rhythm around 11pm (07/12/16) - Continue metoprolol tartrate for rate control, 50mg BID - Echocardiogram, as above. - [id number] score of 3, patient candidate for anticoagulation. Will hold on warfarin due to history of and risk of falls. - Will continue daily aspirin 81mg and add clopidogrel 75mg daily. Pt to follow up with PCP following discharge. 5. Acute on chronic renal failure, present on admission. Active. - Pt has history of CKD stage III - Creatinine 1.75, above apparent baseline of ~1.2 - Avoid nephrotoxic medications and encourage po intake. - Daily BMP 6. Hypotension, acute. Present on admission. Resolved. - Likely due to dehydration. Pt hypertensive at baseline. - Fluid responsive, rec'd 2L normal saline 7. Multiple contusions, present on admission. Active. - Pt found in on floor in bathroom by his . Likely hit chest and chin on sink. - Enlarging neck hematoma. Discontinued heparin drip, hospital day#2. - Monitor CBC 8. Elevated troponin, unknown chronicity. present on admission. Stable - Like multifactorial due to demand ischemia secondary to Afib with RVR and CKD. - Echocardiogram, as above. Heparin drip stopped on day#2, as ACS less likely and pt with enlarging hematomas. - Continue to monitor clinically 9. Possible NSTEMI, present on admission. Resolved. - Less likely due to stable troponin, asymptomatic, EKG without acute ischemic changes. - Converted to normal sinus rhythm. Remains asymptomatic. - Continue aspirin, statin due to multiple cardiovascular risk factors. 10. Chronic Hypertension, present on admission. Active - Continue home dosing of metoprolol tartrate 50mg po BID 11. Chronic Hyperlipidemia, present on admission. Active. - Continue home dosing statin 12. Chronic diabetes mellitus, type 2. present on admission. Active. - Reportedly controlled without medications. - HbA1c 6.0 - Serum glucose 106-121. - Low-dose correctional insulin as needed. 13. Diarrhea, chronic. present on admission. Active. - Patient has had diarrhea since his cholecystectomy. Likely secondary to overproduction and chronic release of bile. - Continue cholestyramine once daily. 14. Benign prostatic hyperplasia, chronic. present on admission - Continue home dosing of finasteride and tamsulosin 15. Chronic neuropathy, present on admission. Active - Continue home dosing of alpha lipoid acid 16. History of testicular cancer, present on admission. Resolved. Acetaminophen-fever/headache/mild/moderate pain Antiemetics, as needed Bowel regimen, as needed. Disposition: Anticipated discharge in 2-3 days, pending SNF placement and further evaluation of worsening gait disturbances and lower extremity weakness Pain Evaluation: Adequate Pain Control GI Prophylaxis: Not indicated VTE Prophylaxis: Sub-Q Heparin (Unfractionated) VTE Mechanical Devices: Intermittant Pneumatic CD Resuscitation Status: DNR/DNI:Do Not Resuscitate/Intubate Attending Statement The patient was seen and examined together with Dr. Morelos on 07-17-16 and I agree with the history, exam and plan as outlined in the note above. Marimar Morelos DO Jul 17, 2016 06:50 Magan Kilgore MD Jul 18, 2016 15:30
--- NOTE | 2016-07-17 17:09 | NUR ---
Shoulder pain Patient c/o 7/10 L shoulder pain. Pain is worse when he is lying in bed. IV Ketoralac given with good results. PO Tylenol given for break through pain. Currently patient states he has no pain.
[2016-07-18 02:56] LABS: Mean Corpuscular Hemoglobin 29.7 pg (27.0-35.0); Mean Corpuscular Volume 91.8 fL (81-100)
[2016-07-18 04:45] VITALS: BP 116/70; PULSE 60; RESP 18; O2SAT 96
[2016-07-18 05:53] VITALS: PULSE 83
[2016-07-18 08:00] VITALS: PULSE 65
[2016-07-18 08:20] VITALS: BP 127/72; PULSE 74; RESP 14; O2SAT 97
[2016-07-18] MEDS: Heparin 5,000 Unit/mL Inj SUBQ SCH (08:24)
--- NOTE | 2016-07-18 10:55 | PCM.DIMED ---
DmitriyaidenMarimar DO 07/18/16 1055: Discharge Instructions Date of Service Jul 18, 2016 Dates of Hospitalization Jul 12, 2016 at 17:54 Discharge Diagnosis Discharge Diagnosis 1. Acute on chronic lower extremity weakness, present on admission. Improving 2. Acute urinary tract infection, present on admission. Treated, resolved. 3. Syncope, present on admission. Resolved. 4. New onset atrial fibrillation with RVR, present on admission. Resolved. 5. Acute on chronic renal failure, present on admission. Ongoing 6. Hypotension, acute. Present on admission. Resolved. 7. Multiple contusions, present on admission. Improving 8. Elevated troponin, unknown chronicity. Unlikely ACS. present on admission. Improving 9. Chronic Hypertension, present on admission. Active 10. Chronic Hyperlipidemia, present on admission. Active. 11. Chronic diabetes mellitus, type 2. present on admission. Active. 12. Diarrhea, chronic. present on admission. Active. 14. Benign prostatic hyperplasia, chronic. present on admission. Active 15. Chronic neuropathy, present on admission. Active Diet Heart Healthy Activity Other (Physical Therapy/Rehab at [place]) Call your provider Shortness of breath, Bleeding, Chest pain, Vomitting, Excessive diarrhea, Weakness (unilateral) Patient Instructions Please discuss recent hospital stay and atrial fibrillation with Dr. Sanchez. We are discharging you on Aspirin and Plavix therapy to reduce your risk of stroke. It is important that you discuss blood thinners with Dr. Sanchez as well as your history of falls. Continue taking all other medications as prescribed. . Follow-up plan Patient discharged in stable condition to [facility] for physical therapy/rehab. . Follow-up Provider: Tomas Sanchez DO Follow-up with PCP in: 1 week Magan Kilgore MD 07/19/16 1655: Discharge Instructions Attending's Statement The patient was seen and examined together with Dr. Tong on 07-18-16 and I agree with the history, exam and plan as outlined in the note above. Marimar Morelos DO Jul 18, 2016 10:55 Magan Kilgore MD Jul 19, 2016 16:55
[2016-07-18] MEDS ORDERED: CLOP75TA28 PO (10:57)
--- NOTE | 2016-07-18 11:27 | NUR ---
Social Work: Discharge D: Pt discussed in morning rounds. Pt is medically stable for discharge to Skilled Rehab. Pt has been accepted at [facility] with Dr. Sanchez to follow. T/c to Kyung at [facility], she confirms they have a bed available; Kyung will call back MUSICAL INSTRUMENT SUPERVISOR with soonest time they can accept the pt. Pt made inpatient status on 07/15/16 and has three midnights under inpatient status. MUSICAL INSTRUMENT SUPERVISOR met with pt at bedside to review dcp. Pt and both agree that pt still requires skilled care and that they would like to d/c to [facility]. Pt's to transport. MUSICAL INSTRUMENT SUPERVISOR informed pt and that MUSICAL INSTRUMENT SUPERVISOR is awaiting t/c from [facility] on final time they can accept pt today. PASSR, Orders and prescriptions faxed to [facility]. A: Pt who requires 2person total assistance at this time. P: Pt to discharge to [facility]; MUSICAL INSTRUMENT SUPERVISOR to update RN on final discharge time once notification is received by [facility]. LORENE Hopson
--- NOTE | 2016-07-18 12:59 | NUR ---
Discharge Patient continues to be in sinus rhythm, VSS, denies pain/discomfort. Patient SBA with FWW, still says he is weaker then baseling. Patient left unit via WC and DC'd to [facility] for rehab. Patient left with all personal belongings, accompanied by his . to transport him to the facility. Discharge packet sent with patient and message left for admit nurse.
--- NOTE | 2016-07-18 17:02 | PCM.DC.MED ---
Discharge Summary Date of Service Jul 18, 2016 Dates of Hospitalization Date of Hospital Admission Jul 12, 2016 at 17:54 Date of Discharge: Jul 18, 2016 Providers: Admitting Physician: Mahad Day MD Primary Care Physician: Dario Mcwilliams MD Attending Physician: Mahad Day MD Diagnosis at Time of Discharge Diagnosis at Time of Discharge 1. Acute on chronic lower extremity weakness, present on admission. Improving 2. Acute urinary tract infection, present on admission. Treated, resolved. 3. Syncope, present on admission. Resolved. 4. New onset atrial fibrillation with RVR, present on admission. Resolved. 5. Acute on chronic renal failure, present on admission. Ongoing 6. Hypotension, acute. Present on admission. Resolved. 7. Multiple contusions, present on admission. Improving 8. Elevated troponin, unknown chronicity. Unlikely ACS. present on admission. Improving 9. Chronic Hypertension, present on admission. Stable 10. Chronic Hyperlipidemia, present on admission. Stable. 11. Chronic diabetes mellitus, type 2. present on admission. Stable. 12. Diarrhea, chronic. present on admission. Stable. 14. Benign prostatic hyperplasia, chronic. present on admission. Stable 15. Chronic neuropathy, present on admission.Stable Procedures XRay, CTs & MRIs X-RAY CHEST ONE VIEW, PORTABLE (07/12/16) IMPRESSION: No acute cardiopulmonary disease process. Dictated and approved by: Rhea Chen MD, PhD on 07/12/2016 at 13:13 CT BRAIN WITHOUT CONTRAST (07/12/16) IMPRESSION: 1. No acute intracranial findings. 2. Stable right frontal encephalomalacia and postsurgical change. 3. Findings likely associated with microvascular ischemic changes. Dictated and approved by: Deena Branch M.D. on 07/12/2016 at 13:59 US BILATERAL DUPLEX DOPPLER IMAGING OF THE CAROTIDS (07/12/17) IMPRESSION: Less than 50% stenosis of the origins of the internal carotid arteries bilaterally. Dictated and approved by: Rhea Chen MD, PhD on 07/12/2016 at 22:35 MRI LUMBAR SPINE WITH AND WITHOUT CONTRAST (07/18/16) IMPRESSION: - Overall, no definite interval change since 07/11/14 as detailed above by spinal level. Diffuse bilateral lumbar foraminal stenoses without definite interval change. - Severe L4-L5 canal stenosis as before - Postsurgical changes as above from L2-L4 with posterior decompression - Grade 1 anterolisthesis of L4 on L5 - Grade 1 retrolisthesis of L2 on L3 Dictated and approved by: Waldemar Tristan M.D. on 07/14/2016 at 16:12 . ECG 12 Lead EKG showed atrial fibrillation/flutter with a heart rate of 109, left ventricular hypertrophy and abnormal R-wave progression when compared to previous EKG (11/24/14). Cardiac Echo Impression Echocardiogram Interpretation Summary 1) Borderline concentric left ventricular hypertrophy with normal size, wall motion, and systolic function (EF 65-70%). 2) Normal right ventricular size and function. 3) Severely dilated left atrium. 4) Calcific mitral valve with mild transmitral inflow gradient (mean 4.6mmHg). 5) Mild aortic stenosis (mean gradient 18mmHg, valve area 1.9cm2). 6) Mild aortic regurgitation. 7) Moderately dilated ascending aorta (diameter 4.5cm) and mildly dilated aortic root (diameter 4.2cm). 8) Sinus rhythm present during the study. 9) Compared to the Echo done 12/22/2011, no significant change. . Brief History Per admission history and physical on 07/12/16. Dr. Marimar García. Tonio Quinteros is a 75-year-old gentleman with a history of hypertension, hyperlipidemia, normal pressure hydrocephalus, chronic kidney disease, stage 3, diabetes mellitus type 2, sleep apnea and testicular cancer who presented to the ED after a syncopal episode and ground level fall. He states that he has been in usual health and went into the bathroom this morning to take his medications and the last thing he remembers is "sliding to the ground". He denies prodromal symptoms, loss of bladder or bowel control, history of seizures or prior syncope. He he uncertain how long he lost consciousness and his reported finding the patient wedged between the vanity and the bathtub and called EMS. Patient and endorse severe weakness immediately following the event and he was noted by EMS to be pale, diaphoretic and unable to get up on his own. He was noted to be in atrial fibrillation by paramedics and EKG in the ED confirmed atrial fibrillation with RVR. Patient denies prior history of irregular heart beat or diagnosis of atrial fibrillation. He denies fever, chills, chest pain or palpitations, shortness of breath, abdominal pain, nausea , vomiting, diarrhea or constipations. Endorses a non-productive cough, diaphoresis, and increased weakness, he walks with a walker at baseline due to neuropathy with gait disturbances following several back surgeries. In the ED, he was afebrile and tachycardic with a heart rate of 105-125. He was normotensive and slightly hypotensive at times with SBP in the mid 90s to low 100s and diastolic 50s-70s. Respiratory rate was 16 and he was satting 94-97% on room air. EKG showed atrial fibrillation/flutter with a heart rate of 109, left ventricular hypertrophy and abnormal R-wave progression when compared to previous EKG (11/24/14). Chest xray showed no acute process and CT head was negative for acute intracranial findings. Labs were significant for a slightly elevated white blood cell count at 12.4, lactic acid of 3.5, serum glucose 112, troponin 0.032, proBNP 609.4 and procalcitonin <0.05. He was given 2L of normal saline, aspirin after the head CT , started on heparin drip and admitted to rule out possible cardiac event as underlying cause of new onset atrial fibrillation. . Hospital Course Tonio Quinteros is a 75-year-old gentleman with a history of hypertension, hyperlipidemia, normal pressure hydrocephalus, chronic kidney disease stage 3, diabetes mellitus type 2, sleep apnea and testicular cancer who presented to the ED after a syncopal episode and ground level fall resulted in multiple contusions. Admitted for new onset atrial fibrillation with rapid ventricular response and to rule out ACS as underlying etiology for Afib as well as further evaluation of syncopal episode. 1. Acute on chronic lower extremity weakness, present on admission. Improving - History of multiple back surgeries and chronic neuropathy of lower extremities with ongoing gait disturbance. Patient ambulates with a walker at baseline. - Per the patient and his his weakness and ability to ambulate severely decreased from day prior to admission. - Lumbar MRI shows no definite interval change from 07/11/14. - Patient received ongoing physical therapy with significant improvement prior to discharge. However, physical therapy still recommending SNF. 2. Acute urinary tract infection, present on admission.Treated/resolved. - Likely contributed to acute decompensation in patient's physical condition and weakness. - Urine culture was positive for enterococcus species resistant to tetracycline. - Patient received completed a course of IV ciprofloxacin. 3. Syncope, present on admission. Resolved. - Likely secondary to dehydration/hypovolemia along w/Afib with RVR and mild aortic stenosis. - Patient denied prior history of syncope or seizures. CT head was negative for acute intracranial process. - Carotid doppler showed no identifiable cause for syncope. Internal carotid arteries with < 50% stenosis - Echocardiogram, as above - Lactic acid normalized; troponin slightly elevated but stable. 4. New onset atrial fibrillation with RVR, present on admission. Resolved. - EKG showed Afib/flutter w/heart rate of 109, new compared to previous EKG ( 2014) - Initial troponin 0.032 and remained elevated but stable, 0.038, 0.039, 0.038. - Patient converted to sinus rhythm around 11pm (07/12/16) and remained in normal sinus throughout hospitalization. - Continued metoprolol tartrate for rate control, 50mg BID - Echocardiogram, as above. - [id number] score of 3 thus patient a candidate for anticoagulation. Did not start patient on warfarin due to his history of and risk for falls. - Instead patient was continued on daily aspirin 81mg therapy and started on clopidogrel 75mg daily at time of discharge. - Patient advised to follow up with his PCP, regarding anticoagulation following discharge. 5. Acute on chronic renal failure, present on admission.Resolved - Patient has a history of CKD stage III - Creatinine on admission was above patient's apparent baseline of 1.5 - Likely due to hypoperfusion secondary to dehydration/hypovolemia. - Nephrotoxic agents were avoided and the patient received IV fluids and was oral intake encouraged. - Monitored with daily BMP 6. Hypotension, acute. Present on admission. Resolved. - Likely due to dehydration. Pt hypertensive at baseline. - Fluid responsive, rec'd 2L normal saline 7. Multiple contusions, present on admission. Improving - Patient found on floor in bathroom by his . Likely hit chest and chin on sink. - Large neck and anterior chest hematomas. As well as ecchymosis of left knee. - Heparin drip was discontinued on hospital day #2 due to enlarging hematomas and ACS less likely. - Monitored clinically for signs of ongoing bleeding and resolution. 8. Elevated troponin, unknown chronicity. present on admission. Stable - Like multifactorial due to demand ischemia secondary to Afib with RVR and CKD. - Echocardiogram, as above. Heparin drip stopped on day#2, as ACS less likely and pt with enlarging hematomas. - Patient was monitored clinically for signs/symptoms concerning for ACS. Remained asymptomatic for cardiac chest pain. 9. Possible NSTEMI, present on admission. Resolved. - Unlikely due to stable troponin, patient asymptomatic, and EKG without acute ischemic changes. - Converted to normal sinus rhythm on evening of admission (07/12/16). - Continued aspirin, statin due to multiple cardiovascular risk factors. 10. Chronic Hypertension, present on admission. Stable - Continued home dosing of metoprolol tartrate 50mg po BID 11. Chronic Hyperlipidemia, present on admission. Stable - Continued home dosing statin 12. Chronic diabetes mellitus, type 2. present on admission. Stable - Reportedly controlled without medications. - HbA1c 6.0 - Serum glucose 106-121. - Low-dose correctional insulin as needed. 13. Diarrhea, chronic. present on admission. Stable - Patient reports history of diarrhea since his cholecystectomy. - Likely secondary to overproduction and chronic release of bile. - Continued home dosing of cholestyramine once daily. 14. Benign prostatic hyperplasia, chronic. present on admission. Stable - Continued home dosing of finasteride and tamsulosin 15. Chronic neuropathy, present on admission. Stable - Continued home dosing of alpha lipoid acid 16. History of testicular cancer, present on admission. Resolved. Exam Vital Signs (Last) Date Time Temp Pulse Resp B/P Pulse Ox O2 Delivery O2 Flow Rate FiO2 07/18/16 08:20 36.5 74 14 127/72 97 Room Air 07/12/16 18:08 2 Exam General appearance: Well-developed, overweight, elderly male, in no acute distress, appropriately interactive HEENT: Normocephalic, abrasions/bruising noted on scalp. External ears without defect. PERRLA, Anicteric sclerae.Moist mucosa. Neck: Supple with full range of motion, nontender. No jugular venous distension. Traumatic hematoma,neck and right angle of jaw. Cardiovascular: Regular rate and rhythm with no murmurs, rubs, or gallops appreciated Pulmonary: Clear to auscultation bilaterally with no crackles, wheezes, or rhonchi. Normal respiratory effort with no use of accessory muscles. Abdomen: Bowel tones present. Soft, diffusely tender, nondistended. No masses appreciated. Large contusion, anterior chest and upper abdomen. Sternal and abdominal surgical scars noted. Extremities: Brawny discoloration of lower extremities bilaterally, onychomycosis, no clubbing, cyanosis, edema, or lymphadenopathy appreciated. Skin: Normal temperature except distal lower extremities slightly cooler left foot > right, normal turgor and texture; no rash, ulcers, or subcutaneous nodules appreciated. Neurological: Cranial nerves II-XII grossly intact. Decreased muscles strength bilateral lower extremities left > right. Peripheral neuropathy. Patient with known gait impairment, uses walker at baseline. Test 07/12/16 12:25 07/12/16 13:05 07/13/16 03:56 07/13/16 11:03 Urine Color Yellow (YELLOW) Urine Appearance Clear (CLEAR,HAZY) Urine pH 5.0 (5.0-8.0) Urine Specific [place] 1.021 (1.003-1.035) Urine Protein Negativemg/dL (NEG,TRACE) Urine Glucose (UA) Negativemg/dL (NEGATIVE) Urine Ketones Negativemg/dL (NEGATIVE) Urine Occult Blood Small (NEGATIVE) Urine Nitrite Negative (NEGATIVE) Urine Bilirubin Negative (NEGATIVE) Urine Urobilinogen Normalmg/dL (NORMAL) Urine Leukocyte Esterase Negative (NEGATIVE) Urine RBC 3-10/hpf (0-2) Urine WBC 0-5/hpf (0-5) Urine Epithelial Cells Few/hpf (NONE-MOD) Urine Crystals None seen (NONE SEEN) Urine Bacteria Moderate/hpf (NONE-FEW) Urine Hyaline Casts Occasional/lpf (NONE) Urine Granular Casts None seen (NONE SEEN) Urine Waxy Casts None seen (NONE SEEN) Urine Red Blood Cell Casts None seen (NONE SEEN) Urine White Blood Cell Casts None seen (NONE SEEN) Urine Mucus None seen (None Seen) Urine Trichomonas None seen (NONE SEEN) Urine Yeast None (NONE SEEN) Urinalysis Comment None Urine Culture Reflexed Indicated D-Dimer 1.9mg/L (<0.50) Pro-B-Type Natriuretic Peptide 609.4pg/mL (0-376) Procalcitonin < 0.05ng/mL (See Comment) Hemoglobin A1c 5.9% (4.8-5.6) Lactic Acid Level 1.8mmol/L (0.4-2.0) Troponin T 0.038ug/L (0.0-0.011) Activated Partial Thromboplast Time 46.7sec (22.8-33.0) Test 07/13/16 18:00 07/15/16 03:00 07/16/16 02:51 07/18/16 02:15 Hold Blue Top Tube Received (Received) Neutrophils (%) (Auto) 21.6% (40-74) Lymphocytes (%) (Auto) 73.9% (14-46) Monocytes (%) (Auto) 2.3% (4-12) Eosinophils (%) (Auto) 1.9% (0-5) Basophils (%) (Auto) 0.1% (0-3) Phosphorus Level 4.1mg/dL (2.5-4.9) Magnesium Level 2.1mg/dL (1.6-2.6) Total Creatine Kinase 159U/L (21-232) Total Bilirubin 0.5mg/dL (0.0-1.2) Aspartate Amino Transf (AST/SGOT) 30U/L (0-50) Alanine Aminotransferase (ALT/SGPT) 29U/L (0-44) Alkaline Phosphatase 57U/L (25-160) Total Protein 5.5g/dL (6.4-8.4) Albumin 3.4g/dL (3.4-5.0) White Blood Count 14.3th/mm3 (3.8-10.1) Red Blood Count 4.14mil/mm3 (4.40-5.80) Hemoglobin 12.3g/dL (13.8-17.2) Hematocrit 38.0% (41.0-50.0) Mean Corpuscular Volume 91.8fL (81-100) Mean Corpuscular Hemoglobin 29.7pg (27.0-35.0) Mean Corpuscular Hemoglobin Concent 32.4% (32.0-37.0) Red Cell Distribution Width 13.0% (12.3-15.4) Platelet Count 144bil/L (150-400) Sodium Level 137mEq/L (134-144) Potassium Level 4.7mEq/L (3.5-5.2) Chloride Level 102mEq/L (97-108) Carbon Dioxide Level 23mmol/L (18-29) Blood Urea Nitrogen 33mg/dL (8-27) Creatinine 1.80mg/dL (0.76-1.27) Estimat Glomerular Filtration Rate 40mL/min (>59) Glucose Level 121mg/dL (60-99) Calcium Level 8.9mg/dL (8.5-10.1) Microbiology Results Urine culture grew Enterococcus resistant to tetracycline. Blood cultures show no growth after 24 hours. . Discharge Medications Discharge Medications Alpha Lipoic Acid (Alpha Lipoic Acid) 100 Mg Capsule 300 MG PO QAM (Reported) Aspirin (Aspirin) 81 Mg Tablet 81 MG PO QAM (Reported) Cholecalciferol (Vitamin D3) (Vitamin D3) 1,000 Unit Tab.chew 1,000 UNIT PO QAM (Reported) Cholestyramine/Aspartame (Cholestyramine Light Packet) 4 Gm Powd.pack 4 GM PO DAILY (Reported) at 1500 Clopidogrel (Clopidogrel) 75 Mg Tablet 75 MG PO DAILY Prescribed by: MARIMAR GARCÍA DO Cyanocobalamin (Vitamin B12) 500 Mcg Tablet 500 MCG PO QAM (Reported) Finasteride (Finasteride) 5 Mg Tablet 5 MG PO QAM (Reported) Metoprolol Tartrate (Metoprolol Tartrate) 50 Mg Tablet 50 MG PO BID (Reported) Pravastatin (Pravastatin) 20 Mg Tablet 20 MG PO QAM (Reported) Tamsulosin (Flomax) 0.4 Mg Capsule 0.4 MG PO BID (Reported) Followup Plan Follow-up plan Patient discharged in stable condition to [facility] for physical therapy/rehab. . Discharge Diet: Heart Healthy Discharge Activity: Other (Physical Therapy/Rehab at [facility]) Patient Instructions Please discuss recent hospital stay and atrial fibrillation with Dr. Sanchez. We are discharging you on Aspirin and Plavix therapy to reduce your risk of stroke. It is important that you discuss blood thinners with Dr. Sanchez as well as your history of falls. Continue taking all other medications as prescribed. . Follow-up Provider: Tomas Sanchez DO Follow-up with PCP in: 1 week Attending Statement The patient was seen and examined together with Dr. García on 07-18-16 and I agree with the history, exam and plan as outlined in the note above. Marimar García DO Jul 18, 2016 17:02 Magan Kilgore MD Jul 19, 2016 16:56
[2016-11-29] MEDS ORDERED: METO100T3 PO (17:39)
[2016-11-29] MEDS ORDERED: ASPI325T32 PO (17:39)
== END 2016-07-18 13:00 | DRG 309 ==
LOC: SED 12:04 → EDBD 12:04 → EDSEX 12:04 → PCC 17:54 → UNDOADMIN 17:54 → INTOOBSV 17:54 → OBSVTOIN 17:54
PROVIDERS: ADMIT Internal Medicine; ATTEND Internal Medicine
DX: I48.91 Unspecified atrial fibrillation (principal); N39.0 Urinary tract infection, site not specified; N17.9 Acute kidney failure, unspecified; I24.8 Other forms of acute ischemic heart disease; R55 Syncope and collapse; I12.9 Hypertensive chronic kidney disease with stage 1 through stage 4 chronic kidney disease, or unspecified chronic kidney disease; E78.5 Hyperlipidemia, unspecified; E11.9 Type 2 diabetes mellitus without complications; N40.0 Benign prostatic hyperplasia without lower urinary tract symptoms; Z87.891 Personal history of nicotine dependence; W18.39XA Other fall on same level, initial encounter; Y92.012 Bathroom of single-family (private) house as the place of occurrence of the external cause; N18.3 Chronic kidney disease, stage 3 (moderate); G62.9 Polyneuropathy, unspecified; G47.33 Obstructive sleep apnea (adult) (pediatric); Z66 Do not resuscitate; R19.7 Diarrhea, unspecified; S10.93XA Contusion of unspecified part of neck, initial encounter; B95.2 Enterococcus as the cause of diseases classified elsewhere

== ENCOUNTER 2016-12-02 00:24 | Day surgery (SDC) | payer MEDICARE ==
[~2016-12-02] VITALS: Ht 188 cm; Wt 121.4 kg
[~2016-12-02 00:24] MED LIST changes: -ASPI-973 PO; +ASPI325T32 PO; +METO100T3 PO; -METO50TA3 PO
[2016-12-02] MEDS ORDERED: Vancomycin 1 Gm/200 mL NS Premix IV ONE (07:00)
[2016-12-02] MEDS ORDERED: 0.9% Sodium Chloride 1,000 ML IV SCH (07:00)
[2016-12-02 12:25] VITALS: BP 115/62; PULSE 62; RESP 16; O2SAT 97
[2016-12-02 12:45] LABS: BASOPHILS % (AUTO) 0.1 % (0-3); EOSINOPHILS % (AUTO) 0.7 % (0-5); MONOCYTES % (AUTO) 11.5 % (4-12); Mean Corpuscular Hemoglobin 30.1 pg (27.0-35.0); Mean Corpuscular Volume 91.7 fL (81-100); Platelet Count 108 bil/L (150-400)
[2016-12-02] MEDS ORDERED: Heparin 10,000 Unit/1,000 mL NS Premix IV ONE (13:07)
[2016-12-02] MEDS ORDERED: 0.9% Sodium Chloride 0 ML ONE (13:07)
[2016-12-02] MEDS ORDERED: Bupivacaine-MPF 0.5% 30 mL Inj ONE (13:08)
[2016-12-02 13:10] LABS: INR 1.05 ratio
--- NOTE | 2016-12-02 13:14 | NUR ---
[facility] ADMIT 76 YR OLD MALE ADMITTED TO [facility] FOR PM TODAY AT 1200. IVS AND LABS PER IVT, MED REC COMPLETED AND QUESTIONS ANSWERED. CONSENT NEEDS TO BE SIGNED WITH DR GUNN. POST PACEMAKER INSTRUCTIONS WERE GIVEN TO FOR REVIEW.
[2016-12-02] MEDS ORDERED: Vancomycin 1,000mg/200 mL NS IV ONE (13:19)
[2016-12-02 14:09] LABS: APPEARANCE,URINE HAZY (CLEAR,HAZY); COLOR,URINE YELLOW (YELLOW)
[2016-12-02 14:10] LABS: OCCULT BLOOD,URINE MODERATE (NEGATIVE); PH,URINE 5.5 (5.0-8.0); UROBILINOGEN,URINE NORMAL (NORMAL)
--- NOTE | 2016-12-02 15:31 | NUR ---
[facility] DISCHARGE PROCEDURE CANCELED DUE TO WBC 14.5. DR GUNN DISCUSSED WITH PT AND PLAN IS TO RESCHEDULE. PT IS TO CALL PCP AND BE TREATED FOR PROBABLE UTI. DR GUNN'S OFFICE WILL CALL PT WITH NEW DATE AND TIME IN A COUPLE OF WEEKS. PT WAS DISCHARGED AT 1530 WITH .
== END 2016-12-02 23:59 | disposition home or self-care (01) ==
LOC: SOUO 00:24
PROVIDERS: ATTEND Internal Medicine Cardiovascular Disease
DX: I49.5 Sick sinus syndrome (principal); Z53.09 Procedure and treatment not carried out because of other contraindication; I12.9 Hypertensive chronic kidney disease with stage 1 through stage 4 chronic kidney disease, or unspecified chronic kidney disease; E11.22 Type 2 diabetes mellitus with diabetic chronic kidney disease; I48.91 Unspecified atrial fibrillation; I48.92 Unspecified atrial flutter; N18.3 Chronic kidney disease, stage 3 (moderate); Z79.4 Long term (current) use of insulin; Z79.899 Other long term (current) drug therapy

== ENCOUNTER 2016-12-27 01:33 | Day surgery (SDC) | payer MEDICARE ==
[2016-12-27] VITALS (12 sets, daily range): BP systolic 120–141; BP diastolic 61–100; PULSE 54–69; RESP 13–20; O2SAT 94–98
[~2016-12-27] VITALS: Ht 188 cm; Wt 121.4 kg
[2016-12-27 12:43] LABS: BASOPHILS % (AUTO) 0.1 % (0-3)
[2016-12-27 12:51] LABS: EOSINOPHILS % (AUTO) 0.3 % (0-5); MONOCYTES % (AUTO) 8.9 % (4-12); Mean Corpuscular Hemoglobin 29.8 pg (27.0-35.0); Mean Corpuscular Volume 90.6 fL (81-100); NEUTROPHILS % (AUTO) 20.2 % (40-74); Platelet Count 109 bil/L (150-400)
[2016-12-27 12:56] LABS: INR 1.04 ratio
[2016-12-27] MEDS ORDERED: Heparin 10,000 Unit/1,000 mL NS Premix IV ONE (13:15)
[2016-12-27] MEDS ORDERED: Bupivacaine-MPF 0.5% 30 mL Inj ONE ×2 (13:16→15:32)
[2016-12-27] MEDS ORDERED: 0.9% Sodium Chloride 250 ML ONE (13:16)
[2016-12-27] MEDS ORDERED: Vancomycin Inj 1,000 MG in IV Premix 1 EACH IV ONE (14:00)
[2016-12-27] MEDS ORDERED: Vancomycin 1,000 mg Inj ONE (14:42)
[2016-12-27] MEDS ORDERED: fentaNYL-PF 50 mCg/mL 2 mL Inj ONE (14:42)
--- NOTE | 2016-12-27 15:33 | NUR ---
Pacemaker Pt arrived to [facility] at 1200, accompanied by . IVs started X2 by IVT and labs sent. Admission completed. Vitals stable on RA. Dr. Tabares notified of WBC: 15.7 (Pt's 12/02 pacer appt canceled due to elevated WBC of 14.2). Per , pt has just finished a 10 day course of antibiotics for suspected UTI. Dr. Tabares in to speak w/ pt and and decision to proceed w/ pacer. Pt taken to research lab assistant at 1430 in stable condition.
[2016-12-27] MEDS ORDERED: HYDROcodone-APAP 5-325 mg Tablet PO PRN (16:00)
[2016-12-27] MEDS ORDERED: Ondansetron 2 mg/mL 2 mL Inj IVPUSH PRN (16:00)
--- NOTE | 2016-12-27 17:04 | DRSVH ---
PROCEDURE: X-RAY CHEST ONE VIEW, PORTABLE ([id number]) INDICATIONS: For new leads placed TECHNIQUE: One view of the chest was acquired. COMPARISON: [facility], CR, XR CHEST 1VW (PORTABLE), 07/12/2016, 12:51. FINDINGS: Surgical changes and devices: Post median sternotomy. Lead left cardiac pacer is been placed in expe cted position. Lungs and pleura: No pleural effusions or pneumothorax. Lungs are clear. Mediastinum: Mediastinal contours appear normal. Heart size is normal. Bones and chest wall: No suspicious bony lesions. Overlying soft tissues appear unremarkable. IMPRESSION: No immediate complications status post cardiac pacemaker placement. Dictated by: Sunday Hanley [facility] Interpreted: Waldemar Tristan MD on 12/27/2016 at 16:56 Approved by: Waldemar Tristan M.D. on 12/27/2016 at 17:02
--- NOTE | 2016-12-27 18:33 | NUR ---
[facility] TRANSFER PT RECEIVED FROM DENTAL CHAIRSIDE ASSISTANT AT 1625. LEFT UPPER CHEST DRSG C/D/I, MONITOR SHOWS ATRIAL PACED RHYTHM 60s. POST CXR AND EKG WERE OBTAINED. PT AWAKE, TAKING PO FLUIDS AND MEAL WITHOUT DIFFICULTY. REPORT GIVEN TO SHADI Larson RN AND PT AND HIS NURSING CARE WERE TRANSFERRED TO ROOM 2002 AT 1815. RN TO RN BEDSIDE HANDOFF WAS DONE. TELE CONFIRMED WITH TACKING STITCH REMOVER.
--- NOTE | 2016-12-27 18:35 | NUR ---
SLING WAS PLACED TO LEFT ARM
[2016-12-27] MEDS: 0.9% Sodium Chloride 1,000 ML IV SCH ×2 (19:15→23:52)
--- NOTE | 2016-12-27 22:19 | OP ---
[address] [address] OPERATIVE REPORT PATIENT: JEYSON AARON : 1940 MR#: [id number] ADMIT: 12/27/2016 JOB ID: [id number] DATE OF SURGERY: 12/27/2016 SURGEON: Pio Tabares M.D., electrophysiology attending. PREOPERATIVE DIAGNOSIS(ES): Sick sinus syndrome. POSTOPERATIVE DIAGNOSIS(ES): Sick sinus syndrome. PROCEDURE PERFORMED: 1. Dual chamber pacemaker implantation. 2. Fluoroscopy. ASSISTANTS: Jared Gu IMPLANTED DEVICES: 1. [employer] pulse generator model PX3037, serial #[id number]. 2. Right atrial lead, [employer], [id number], 52 cm, serial #[id number]. 3. Right ventricular lead, [employer], [id number], 58 cm, serial #[id number]. ANESTHESIA: Bolus dosing of Versed and fentanyl were utilized to appropriate level of sedation. INDICATION: The patient is a pleasant 76-year-old man with preserved LV function and paroxysmal atrial fibrillation and sick sinus syndrome. After a discussion of the risks and benefits of pacemaker implantation, he opts to proceed. PROCEDURE: After obtaining informed consent, the patient was taken to the EP laboratory in a nonsedated state where he was prepped and draped in the usual sterile fashion. The left infraclavicular region was infiltrated with 40 cc of a 50/50 mixture of bupivacaine and lidocaine. Once adequate anesthesia had been achieved, a 3 cm transverse incision was made. The incision was carried down to the pectoralis fascia and a pocket was then fashioned using a combination of electrocautery and blunt dissection. Axillary vein access was gotten with a micropuncture needle over the first rib to deploy two 0.035 J guide wires. Over the first of these, an 8-[place] tear away sheath was advanced. Once the guidewire was removed, an active fixation pacing lead was advanced to the RVOT and ultimately to the RV apex. The lead was affixed in position using it's associated active fixation screw. It was connected to the external analyzer and demonstrated appropriately sensed R waves , impedance and capture threshold. It was checked at 10V and there was no evidence of diaphragmatic stimulation. Attention was then placed to the placement of the right atrial lead. Over the previously deployed guidewire, another 8-[place] tear away sheath was advanced. An active fixation lead was advanced to the right atrial appendage. This was affixed in position using its associated active fixation screw. The lead was connected to the external analyzer demonstrated appropriately sensed P waves, impedance and capture threshold. It was checked at 10V and there was no evidence of diaphragmatic stimulation. Once the positions and redundancy of the two leads had been confirmed in multiple fluoroscopic views, the leads were secured to the prepectoralis fascia using there associated anchoring sleeves and two heavy Ethibond suture. The leads were connected to the generator. The entire system was placed into the pocket and secured to the floor using 1-0 Ticron suture. The incision was closed with running layers of absorbable suture. The wound was dressed with skin adhesive and a small dressing. BLOOD LOSS: Negligible. DEVICE MEASURED DATA RA lead: 3 mV, 440 ohms, at 1 V at 0.4 msec. RV lead: greater than 12 mV, 160 ohms, 0.5 volts at 0.4 msec. FINAL PARAMETERS: DDDR 60 at 130 beats per minute. VIP on. IMPRESSION: Successful dual chamber pacemaker implantation. PLAN: 1. State portable chest x-ray. 2. PA and lateral chest x-ray in the morning. 3. IV Vancomycin through tomorrow 4. Doxycycline 100mg PO daily for 7 days starting tomorrow. 5. Wound check one week. ATTENDING STATEMENT: Pio Tabares M.D., electrophysiology attending, was present for and supervised/performed all aspects of this procedure. ANA CRISTINA
[2016-12-28 03:53] VITALS: BP 110/54; PULSE 60; RESP 19; O2SAT 97
[2016-12-28] MEDS ORDERED: Vancomycin Inj 1,000 MG in IV Premix 1 EACH IV ONE (04:00)
[2016-12-28 05:00] VITALS: PULSE 56
--- NOTE | 2016-12-28 08:00 | NUR ---
Sling/SBA Pt refused to wear sling, states he will remember to be cautious with left arm. Pt states he uses walker to ambulate due to neuropathy in legs. Care continues.
[2016-12-28 08:30] VITALS: BP 129/70; PULSE 65; RESP 16; O2SAT 97
--- NOTE | 2016-12-28 09:22 | PCM.DIMED ---
Discharge Instructions Date of Service Dec 27, 2016 Dates of Hospitalization 12/27/2016 Discharge Diagnosis Discharge Diagnosis 12/28/2016 Medication Instructions Additional med instructions Continue all of your routine medications. Start doxycycline 100 mg daily for the next 7 days. Diet Discharge Diet: Heart Healthy Activity Discharge Activity: Other (no lifting her left arm/elbow higher than his shoulder for one month. Do not lift more than 10 pounds with her left arm for one month. Use the sling for comfort and wean out of it over the next week. You may shower letting water and soap gently run over the incision site starting tomorrow. Avoid submerging the wound in water for at least one week. Otherwise activities as tolerated.) Call your provider Call your provider for: Fever or Chills, Shortness of breath, Bleeding, Chest pain, Weakness (unilateral), Other (contact the office immediately if you notice any increased pain, redness, swelling or discharge from the wound/ pacemaker site.) Patient Instructions Follow-up in: 1 week (with pacemaker clinic. They will call you to schedule that on Friday.) Follow-up with [facility] in: 6 weeks (follow-up with Pradeep Nair PA-C in 6 weeks for pacer check.) Mahad Morris PA-C Dec 28, 2016 09:22
--- NOTE | 2016-12-28 09:34 | PCM.DC.CAR ---
Discharge Summary Date of Service Dec 28, 2016 Date of Hospital Admission 12/27/2016 Date of Discharge: Dec 28, 2016 Providers: Admitting Physician: Pio Chairez Primary Care Physician: Ankit Anaya DO Attending Physician: Pio Tabares MD Diagnosis at Time of Discharge 12/28/2016 sick sinus syndrome s/p permanent pacemaker. Problems: Invasive Procedures: IMPLANTED DEVICES: 1. [employer] pulse generator model [id number], serial #[id number]. 2. Right atrial lead, [employer], [id number], 52 cm, serial #[id number]. 3. Right DATE OF SURGERY: 12/27/2016 Other Device check this morning did not show any significant events or other abnormalities per report. Chest x-ray- normal with no pneumothorax, leads and pacer appropriately placed Brief History and Physical: Mr. Quinteros is a 76-year-old male with history of atrial fibrillation and sick sinus syndrome who experienced several syncopal events. On 12/27/2016 Dr. Tabares [address] a [employer] pulse generator to help prevent further syncope. The patient claims he was able to get some rest last night and has experienced only minor discomfort to the pocket site in his left anterior chest wall. He denies any unusual symptoms otherwise and the chest wall or in his left arm. On examination Mr. Quinteros is sitting comfortably in bed just finishing breakfast. He is in no apparent distress. He is alert and oriented 4. His chest wall appears symmetrical with no significant redness or swelling and only minimal bruising, swelling to the incision site in his left anterior chest wall. He has no tenderness to palpation. Arms are symmetrical. Integument is normal colored and warm to upper extremities bilaterally. Chest wall is symmetrical. Lungs are clear bilaterally, heart regular rate and rhythm. Hospital Course: Patient was admitted to the hospital on 12/27/[address] Tabares placed his permanent pacemaker. He rested comfortably overnight without significant issues. Appears to be doing well at time of evaluation this morning prior to discharge. Discharge Medications Alpha Lipoic Acid (Alpha Lipoic Acid) 100 Mg Capsule 300 MG PO QAM Aspirin (Aspirin) 325 Mg Tablet 325 MG PO DAILY Cholecalciferol (Vitamin D3) (Vitamin D3) 1,000 Unit Tab.chew 1,000 UNIT PO QAM Cholestyramine/Aspartame (Cholestyramine Light Packet) 4 Gm Powd.pack 4 GM PO 3PM Cyanocobalamin (Vitamin B12) 500 Mcg Tablet 500 MCG PO QAM Finasteride (Finasteride) 5 Mg Tablet 5 MG PO QPM Metoprolol Tartrate (Metoprolol Tartrate) 100 Mg Tablet 100 MG PO BID Pravastatin (Pravastatin) 20 Mg Tablet 20 MG PO HS Tamsulosin (Flomax) 0.4 Mg Capsule 0.4 MG PO HS Additional med instructions Continue all of your routine medications. Start doxycycline 100 mg daily for the next 7 days. Followup Plan Disposition: Patient is doing well at time of discharge evaluation. There is no obvious signs of unusual swelling and no sign of infection to the pacemaker pocket site. Follow-up plan Patient will be contacted by our office and scheduled for a follow-up visit with the device clinic in one week and with Pradeep Nair PA-C in 6 weeks. Discharge Activity: Other (no lifting her left arm/elbow higher than his shoulder for one month. Do not lift more than 10 pounds with her left arm for one month. Use the sling for comfort and wean out of it over the next week. You may shower letting water and soap gently run over the incision site starting tomorrow. Avoid submerging the wound in water for at least one week. Otherwise activities as tolerated.) Patient Instructions Patient is advised to avoid lifting greater than 10 pounds over the next month this left arm. He should avoid lifting his left elbow higher than shoulder height for 1 month. He is advised to use his arm sling for comfort and 29 and it is he feels he can in the next week. He should avoid submerging the incision site for one week. May start showering tomorrow letting water and soap gently run over the incision site. Contact the office immediately if you notice increasing swelling redness or pain to the incision site, notice fever chills pain in the left arm or any other unusual symptoms. Mahad Morris PA-C Dec 28, 2016 09:34
[2016-12-28] MEDS: 0.9% Sodium Chloride 1,000 ML IV SCH (10:00)
--- NOTE | 2016-12-28 10:23 | DRSVH ---
PROCEDURE: X-RAY CHEST, TWO VIEWS ([id number]) INDICATIONS: For new lead placement TECHNIQUE: 2 views of the chest were acquired. COMPARISON: [facility], CR, XR CHEST 1VW (PORTABLE), 07/12/2016, 12:51. [facility], CR, XR CHEST 1VW (PORTABLE), 12/27/2016, 16:21. FINDINGS: Surgical changes and devices: Pacemaker with leads into the right atrial appendage and right ventricu lar apex are present. No change is perceived since the previous chest x-ray of 12/27/16 Lungs and pleura: No pleural effusions or pneumothorax. Lungs are clear. Mediastinum: Mediastinal contours are normal. Heart size is normal. Bones and chest wall: No suspicious bony abnormalities. Soft tissues appear unremarkable. IMPRESSION: Pacemaker and leads thought to be appropriate in position radiographically. Dictated by: Pradeep Bonds M.D. on 12/28/2016 at 10:19 Approved by: Pradeep Bonds M.D. on 12/28/2016 at 10:22
[2016-12-28 10:29] VITALS: PULSE 62
--- NOTE | 2016-12-28 12:27 | NUR ---
Discharge Pt discarded to home at approximately 1225 with . Pt given Pacemaker booklet, refused information re Doxycycline stated they will get from pharmacy. Pacemaker book given to pt. Next dose to be taken clearly written and dated, pt acknowledge and understood information. IVs DC'd with catheter intact, tele removed monitor technician notified. Pt left with all personal belongings. Escorted by [employer] in wheelchair to front door.
== END 2016-12-28 12:37 | disposition home or self-care (01) ==
LOC: SOUO 01:33 → EDSTATUS 09:42 → PCC 18:27 → SOUO 12-28 12:37 → PCC 12-28 12:37
PROVIDERS: ATTEND Internal Medicine Cardiovascular Disease
DX: I49.5 Sick sinus syndrome (principal); I48.0 Paroxysmal atrial fibrillation; I48.92 Unspecified atrial flutter; N40.0 Benign prostatic hyperplasia without lower urinary tract symptoms; G47.30 Sleep apnea, unspecified; E11.42 Type 2 diabetes mellitus with diabetic polyneuropathy; Z79.82 Long term (current) use of aspirin; M48.06 Spinal stenosis, lumbar region; N18.3 Chronic kidney disease, stage 3 (moderate); I12.9 Hypertensive chronic kidney disease with stage 1 through stage 4 chronic kidney disease, or unspecified chronic kidney disease
CPT/HCPCS: 33208; 36415; 71010; 71020; 80048; 85025; 85610; 93005; 99152; 99153; C1769; C1785; C1892; C1898; J1644; J2250; J3010; J3370; J7050

== ENCOUNTER 2017-03-18 14:59 | Inpatient (IN) | payer MEDICARE ==
[~2017-03-18] VITALS: Ht 188 cm; Wt 122.2 kg
[2017-03-18 15:08] VITALS: BP 108/58; PULSE 98; RESP 15; O2SAT 97
--- NOTE | 2017-03-18 15:22 | ED.REPORT ---
HPI-General Illness Date of Service Mar 18, 2017 ED Provider: Zeyad Parada MD Pt is a 76 y/o male w/ a hx of DM, HTN, peripheral neuropathy, vardiac pacemaker , remote seminoma tumor resection, presenting to the ED via EMS with his c/ o recurrent syncopal episodes, most recent at 10:30 this morning. He has been experiencing recurrent syncopal episodes with the first being June 2016 at which time he was admitted and a pacemaker was placed at that time. He has continued to have these events despite the pacemaker being placed. The latest of these events occurred today at which time he was found to be awake on the floor by his daughter who called EMS. EMS arrived to find his VS were normal and he was medically cleared. Throughout the day the patient has seemed confused in that he has been slurring his words, transiently had an abnormal gait. The thought the right side of his face was drooping a bit at that time and an occupational therapist thought he was focally weak in his right arm. There is no history of stroke. EMS was called again and he was found to have orthostatic hypotension. At this time he is close to back to normal. Pt denies fever, cough, head injury, CP, SOB, seizure-like activity, N/V/D. He is not on any anticoagulation and takes 1 ASA each day. The patient has reportedly not been taking his medications including Flecainide and metoprolol. He has been eating and drinking somewhat less than normal. There have been no medication changes or new medications recently. His noticed bleeding from the scrotum thought to be from the falls. There has been no recent steroid therapy and has been told he has a baseline leukocytosis in the past. His leukocytosis is not currently being worked up according to him. Most of history obtained via the . Nursing Notes Stated Complaint: WEAKNESS Chief Complaint: General Complaint Nursing Notes Reviewed: Yes Allergies: Coded Allergies: macadamia nut oil (Verified Allergy, Unknown, nausea, chest pain, 03/18/17) Scheduled Alpha Lipoic Acid (Alpha Lipoic Acid) 100 Mg Capsule 300 MG PO HS Aspirin (Aspirin) 325 Mg Tablet 325 MG PO HS Cholecalciferol (Vitamin D3) (Vitamin D3) 1,000 Unit Tab.chew 1,000 UNIT PO QAM Cholestyramine/Aspartame (Cholestyramine Light Packet) 4 Gm Powd.pack 2 GM PO DAILYWD TAKES AT 4 PM Cyanocobalamin (Vitamin B12) 500 Mcg Tablet 500 MCG PO QAM Finasteride (Finasteride) 5 Mg Tablet 5 MG PO HS Flecainide Acetate (Flecainide Acetate) 100 Mg Tablet 100 MG PO BID Metoprolol Tartrate (Metoprolol Tartrate) 50 Mg Tablet 50 MG PO BID Pravastatin (Pravastatin) 20 Mg Tablet 20 MG PO HS Tamsulosin (Flomax) 0.4 Mg Capsule 0.4 MG PO BID Scheduled PRN Ibuprofen (Ibuprofen) 200 Mg Capsule 200-400 MG PO BID PRN PRN For Pain Polyethylene Glycol 3350 (Miralax) 17 Gm Powd.pack 17 GM PO DAILY PRN PRN For Constipation General Time Seen by MD: 15:22 Chief Complaint Weakness Hx Obtained From: Patient, EMS Arrived By: Ambulance Sudden in Onset?: No Onset Occurred: More than a week ago... 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 Physical Exam Vital Signs Vital Signs Date Time Temp Pulse Resp B/P Pulse Ox O2 Delivery O2 Flow Rate FiO2 03/18/17 17:52 36.8 107 15 107/53 97 Room Air 03/18/17 15:08 36.8 98 15 108/58 97 Room Air Initial VS: Reviewed, Vital signs normal Head / Eyes: Atraumatic, Normocephalic ENT: Mucous membranes moist, Conjunctiva normal, No scleral icterus Neck: Supple, Non-tender, Full range of motion Respiratory: Breath sounds normal, Clear to auscultation, No respiratory distress Abdomen / GI: Soft, Non-tender, No guarding, No rebound, No distention Extremities: Vascular intact, No swelling Psychiatric: Mood/affect normal, Behavior normal, Normal thought content General/Constitutional: Awake, Alert, No acute distress, Cooperative, Not toxic appearing Appearance / Presentation: Positive: Obese Cardiovascular: Heart sounds NL, No gallop, No murmurs, No rubs, Cap refill not delayed, Peripheral circulation NL Heart Rate / Rhythm: Positive: Irregular rhythm, Tachycardia (mild) Skin: No rash, Warm, Dry, Intact Well healed sternotomy scar Well healed scar about the left anterior chest where the pacemaker is present Bilateral knee replacement scars Male Genitourinary: No meatal blood Superficial abrasion of the left side of scrotum No laceration Testes normal Normal testicular lie Neurologic: Speech NL, CN II - XII intact, Cerebellar NL Subtle right-sided pronator drift Diminished but equal sensation about the lower extremities = secondary to peripheral neuropathy Finger to nose normal bilaterally Not oriented to year. Oriented to place. Interpretation & Diagnostics Lab Results Interpretation Result Diagram: 03/18/17 1615 03/18/17 1615 Test 03/18/17 16:15 03/18/17 17:48 03/18/17 18:24 03/18/17 18:25 White Blood Count 27.6th/mm3 (3.8-10.1) Red Blood Count 4.60mil/mm3 (4.40-5.80) Hemoglobin 14.1g/dL (13.8-17.2) Hematocrit 42.8% (41.0-50.0) Mean Corpuscular Volume 93.0fL (81-100) Mean Corpuscular Hemoglobin 30.7pg (27.0-35.0) Mean Corpuscular Hemoglobin Concent 32.9% (32.0-37.0) Red Cell Distribution Width 13.9% (12.3-15.4) Platelet Count 125bil/L (150-400) Neutrophils (%) (Auto) 17% (40-74) Lymphocytes (%) (Auto) 82% (14-46) Monocytes (%) (Auto) 1% (4-12) Eosinophils (%) (Auto) 0% (0-5) Basophils (%) (Auto) 0% (0-3) Hematology Comments Wbc Prothrombin Time 11.4sec (8.1-12.5) Prothromb Time International Ratio 1.06ratio Sodium Level 143mEq/L (134-144) Potassium Level 4.4mEq/L (3.5-5.2) Chloride Level 108mEq/L (97-108) Carbon Dioxide Level 19mmol/L (18-29) Blood Urea Nitrogen 35mg/dL (8-27) Creatinine 2.01mg/dL (0.76-1.27) Estimat Glomerular Filtration Rate 35mL/min (>59) Glucose Level 100mg/dL (60-99) Calcium Level 8.9mg/dL (8.5-10.1) Magnesium Level 2.4mg/dL (1.6-2.6) Total Bilirubin 0.9mg/dL (0.0-1.2) Aspartate Amino Transf (AST/SGOT) 21U/L (0-50) Alanine Aminotransferase (ALT/SGPT) 17U/L (0-44) Alkaline Phosphatase 51U/L (25-160) Pro-B-Type Natriuretic Peptide 4478pg/mL (0-486) Total Protein 6.6g/dL (6.4-8.4) Albumin 4.1g/dL (3.4-5.0) Urine Color Yellow (YELLOW) Urine Appearance Hazy (CLEAR,HAZY) Urine pH 5.5 (5.0-8.0) Urine Specific Seymour 1.030 (1.003-1.035) Urine Protein Tracemg/dL (NEG,TRACE) Urine Glucose (UA) Negativemg/dL (NEGATIVE) Urine Ketones Negativemg/dL (NEGATIVE) Urine Occult Blood Large (NEGATIVE) Urine Nitrite Negative (NEGATIVE) Urine Bilirubin Negative (NEGATIVE) Urine Urobilinogen Normalmg/dL (NORMAL) Urine Leukocyte Esterase Moderate (NEGATIVE) Urine RBC 11-50/hpf (0-2) Urine WBC 6-10/hpf (0-5) Urine Epithelial Cells None/hpf (NONE-MOD) Urine Crystals None seen (NONE SEEN) Urine Bacteria Many/hpf (NONE-FEW) Urine Hyaline Casts None/lpf (NONE) Urine Granular Casts None seen (NONE SEEN) Urine Waxy Casts None seen (NONE SEEN) Urine Red Blood Cell Casts None seen (NONE SEEN) Urine White Blood Cell Casts None seen (NONE SEEN) Urine Mucus None seen (None Seen) Urine Trichomonas None seen (NONE SEEN) Urine Yeast None (NONE SEEN) Urinalysis Comment None Urine Culture Reflexed Indicated Troponin T 0.015ug/L (0.0-0.011) Triglycerides Level 166mg/dL (0-149) Cholesterol Level 128mg/dL (100-199) LDL Cholesterol, Calculated 61.800mg/dL (0-99) VLDL Cholesterol 33.200mg/dL HDL Cholesterol 33mg/dL (>39) Cholesterol/HDL Ratio 3.88 (0.0-4.4) ECG Interpretation ECG Interpretation: Atrial fibrillation rate 101 Normal axis Normal intervals Mild ST depression anteroseptal leads No ST segment elevation No acute T wave abnormalities Compared to prior dated 12/27/16 - he is no longer in an atrial paced rhythm and anteroseptal ST segment depression is now present Time: 16:07 Interpreted by: ED physician X-Ray Chest Interpretation Chest Xray Interpretation: IMPRESSION: No acute cardiopulmonary abnormality. Permanent pacemaker. Dictated by: Lev Parson M.D. on 03/18/2017 at 16:11 Approved by: Lev Parson M.D. on 03/18/2017 at 16:12 View: Portable, 1 view Interpretation / Wet Read by: Interpret - Radiologist CT Head Interpretation IMPRESSION: 1. No acute intracranial abnormality or interval change. 2. Right frontal encephalomalacia is subjacent to craniotomy defect. 3. Cerebral atrophy, central greater than peripheral. Chronic deep white matter ischemic changes. Report called to Dr. Parada in the ED Dictated by: Lev Parson M.D. on 03/18/2017 at 16:41 Approved by: Lev Parson M.D. on 03/18/2017 at 16:43 Study: Head CT no contrast Interpretation / Wet Read by: Interpret - Radiologist, Discussed w radiologist Re-Eval/Medical Decision Med Decision/Clinical Course Pt is a 76 y/o male w/ a hx of DM, HTN, peripheral neuropathy, vardiac pacemaker , remote seminoma tumor resection, presenting to the ED via EMS with his c/ o recurrent syncopal episodes, most recent at 10:30 this morning. He has been experiencing recurrent syncopal episodes with the first being June 2016 at which time he was admitted and a pacemaker was placed at that time. He has continued to have these events despite the pacemaker being placed. The latest of these events occurred today at which time he was found to be awake on the floor by his daughter who called EMS. EMS arrived to find his VS were normal and he was medically cleared. Throughout the day the patient has seemed confused in that he has been slurring his words, transiently had an abnormal gait. The thought the right side of his face was drooping a bit at that time and an occupational therapist thought he was focally weak in his right arm. There is no history of stroke. EMS was called again and he was found to have orthostatic hypotension. At this time he is close to back to normal. Pt denies fever, cough, head injury, CP, SOB, seizure-like activity, N/V/D. He is not on any anticoagulation and takes 1 ASA each day. The patient has reportedly not been taking his medications including Flecainide and metoprolol. He has been eating and drinking somewhat less than normal. There have been no medication changes or new medications recently. His noticed bleeding from the scrotum thought to be from the falls. There has been no recent steroid therapy and has been told he has a baseline leukocytosis in the past. His leukocytosis is not currently being worked up according to him. Upon arrival to the emergency department the patient is afebrile, slightly tachycardic though with otherwise stable vital signs and examination as above. [employer]. Pacemaker interrogated. Afib RvR since yesterady vent rates up to 216. device working fine. He is paced when rate goes below 70 and is not recently required pacing. EKG: Atrial fibrillation rate 101 Normal axis Normal intervals Mild ST depression anteroseptal leads No ST segment elevation No acute T wave abnormalities Compared to prior dated 12/27/16 - he is no longer in an atrial paced rhythm and anteroseptal ST segment depression is now present Chest x-ray: No acute cardiopulmonary abnormality. Permanent pacemaker. CT head: 1. No acute intracranial abnormality or interval change. 2. Right frontal encephalomalacia is subjacent to craniotomy defect. 3. Cerebral atrophy, central greater than peripheral. Chronic deep white matter ischemic changes. Labs notable as below: CBC: Leukocytosis of 27.6, platelets of 125, otherwise WNL, baseline leukocytosis although signifi increased today Coag studies: normal CMP: BUN of 35 and creatinine of 2.01 both elevated from baseline, Cardiac markers: troponin mildly elevated at 0.017, BNP elevated at 4,478 Cause of the patient's syncopal events is not entirely clear though I suspect that the patient's episodes of atrial fibrillation with rapid ventricular response may be a significant contributor. Here in the emergency department the patient was in atrial fibrillation with borderline rapid ventricular response that was hemodynamically stable. I discussed the patient with his systems designer and we reviewed his case in detail at the bedside. In reviewing clinic notes it appears that he is leukocytosis and abdominal cytopenia and been previously identified in that he has been referred to hematology/oncology for further workup of this. The patient clearly has limited insight in this condition as he did not provide me any of this history even when specifically asked. His CBC findings are certainly concerning for mild proliferative disorder or possible hematologic malignancy. At this time the patient has only subtle pronator drift and is in no means a candidate for TPA. Syncope is an unusual presentation for acute stroke or TIA though he is having some mild symptoms suggestive of possible TIA events. It is unclear whether or not this is related in anyway to his syncope. That being said, the patient is in known atrial fibrillation and is not anticoagulated. Decision to not anticoagulate the patient was made by his systems designer due to his frequent falls. In discussions with the patient's systems designer is still felt that the risk of anticoagulation outweighs the benefits. The patient is noted to have acute kidney injury and mildly elevated troponin and we will trend this upon admission. He will require hematology/oncology consultation and further rate control for his atrial fibrillation. This is discussed with the admitting hospitalist and he is accepted for further management with plan for hematology consultation and ongoing recommendations from his systems designer. He was transferred in stable condition. Source of Hx: Old records Time of Eval: 17:02 Re-Evaluation/Progress Note: Pt rechecked. Informed pt of need for admission. Pt understands and agrees with plan for admission. All questions addressed. Consultation #1: Referral / Consult Name: Darlin Ballard MD Consulted With: Hospitalist Call Returned at: 17:54 Semiconductor Manufacturing Technician: Will see patient, Agrees with eval, Agrees with plan, Accepts admit Consultation #2: Referral / Consult Name: Sandra Reis MD Consulted With: Cardiology Call Returned at: 18:39 Semiconductor Manufacturing Technician: Will see patient, Agrees with eval, Agrees with plan Note: Will consult. Counseled Regarding: Diagnosis, Lab results, Need for admission Discharge & Departure Primary Impression: Syncopal episodes Syncope type: unspecified Qualified Code: R55 - Syncope and collapse Additional Impressions: Atrial fibrillation with rapid ventricular response TIA (transient ischemic attack) Transient cerebral ischemia type: unspecified Qualified Code: G45.9 - Transient cerebral ischemic attack, unspecified Leukocytosis Leukocytosis type: unspecified Qualified Code: D72.829 - Elevated white blood cell count, unspecified Thrombocytopenia Multiple falls RANDY (acute kidney injury) Altered mental status Altered mental status type: unspecified Qualified Code: R41.82 - Altered mental status, unspecified Disposition: ADMITTED TO HOSPITAL Discharge Condition All VS Reviewed: Yes Condition: Stable Referrals: Hunter Carvalho MD (PCP) Sandra Reis MD Crit Care Except Billable Proc Time Spent: 105-134 minutes Services Performed: Patient management by me, Time spent at bedside, Reviewing test results, Reviewing imaging, Discussing patient care, Documentation in record, Time with fam/surrogate Scribe Attestation Portions of this note were transcribed by Orestes Avery. I, Dr. Parada personally performed the history, physical exam and medical decision-making; I reviewed and confirmed the accuracy of the information in the transcribed note. copies to: Sandra Reis MD; Hunter Carvalho MD, Beck O MD Mar 18, 2017 15:22 ORESTES AVERY Mar 18, 2017 15:29
[2017-03-18] MEDS ORDERED: Ondansetron 2 mg/mL 2 mL Inj IVPUSH PRN ×2 (16:05→18:05)
[2017-03-18] MEDS ORDERED: Alum-Mag Hydrox-Simeth 30 mL Suspension PO PRN ×2 (16:05→18:05)
--- NOTE | 2017-03-18 16:13 | DRSVH ---
PROCEDURE: X-RAY CHEST ONE VIEW, PORTABLE ([id number]) INDICATIONS: SHORT OF BREATH TECHNIQUE: One view of the chest was acquired. COMPARISON: None. FINDINGS: Surgical changes and devices: Median sternotomy. Dual-lead left-sided pacemaker appears in place and intact.. Lungs and pleura: No pleural effusions or pneumothorax. Lungs are clear. Mediastinum: Mediastinal contours appear normal. Heart size is normal. Bones and chest wall: No suspicious bony lesions. Overlying soft tissues appear unremarkable. IMPRESSION: No acute cardiopulmonary abnormality. Permanent pacemaker. Dictated by: Lev Parson M.D. on 03/18/2017 at 16:11 Approved by: Lev Parson M.D. on 03/18/2017 at 16:12
[2017-03-18 16:20] LABS: Mean Corpuscular Hemoglobin 30.7 pg (27.0-35.0); Platelet Count 125 bil/L (150-400)
[2017-03-18 16:37] LABS: INR 1.06 ratio
[2017-03-18 16:43] LABS: BASOPHILS % (AUTO) 0 % (0-3); EOSINOPHILS % (AUTO) 0 % (0-5); MONOCYTES % (AUTO) 1 % (4-12); NEUTROPHILS % (AUTO) 17 % (40-74); TROPONIN T 0.017 ug/L (0.0-0.011)
--- NOTE | 2017-03-18 16:45 | DRSVH ---
PROCEDURE: CT BRAIN WITHOUT CONTRAST ([id number]) INDICATIONS: trauma TECHNIQUE: Noncontrast 4.5 mm thick angled axial sections acquired from the foramen magnum to the vertex, with c oronal reformats. COMPARISON: CT brain 07/12/2016, 11/24/2014; MRI brain 11/17/2014 FINDINGS: Image quality: Excellent. CSF spaces: Basal cisterns are patent. No extra-axial fluid collections. The ventricles are enlarg ed and symmetric in size and shape. Brain: No intracranial bleeds or masses. Right frontal encephalomalacia subjacent to remote cranioto my defect. There is cerebral volume loss for age, with resultant ventricular and sulcal prominence. There are periventricular and deep white matter chronic small vessel ischemic changes. There is intr acranial internal carotid artery atherosclerosis. Skull and face: Calvarium and visualized facial bones appear intact, without suspicious lesions. Sinuses: Visualized sinuses and mastoids are clear. IMPRESSION: 1. No acute intracranial abnormality or interval change. 2. Right frontal encephalomalacia is subjacent to craniotomy defect. 3. Cerebral atrophy, central greater than peripheral. Chronic deep white matter ischemic changes. Report called to Dr. Parada in the ED Dictated by: Lev Parson M.D. on 03/18/2017 at 16:41 Approved by: Lev Parson M.D. on 03/18/2017 at 16:43
[2017-03-18 16:54] LABS: Magnesium 2.4 mg/dL (1.6-2.6)
[2017-03-18 17:52] VITALS: BP 107/53; PULSE 107; RESP 15; O2SAT 97
[2017-03-18] MEDS ORDERED: MeTOProlol 1 mg/mL 5 mL Inj IVPUSH PRN (18:05)
[2017-03-18] MEDS ORDERED: Heparin 5,000 Unit/mL Inj SUBQ SCH (18:05)
[2017-03-18] MEDS ORDERED: Labetalol 5 mg/mL 20 mL Inj IVPUSH PRN (18:05)
[2017-03-18] MEDS ORDERED: Polyethylene Glycol (PEG) 17 Gm Powder PO PRN ×2 (18:05→19:25)
--- NOTE | 2017-03-18 18:21 | PCM.HPMED ---
Subjective Date of Service Mar 18, 2017 Primary Provider: Admitting Physician: Primary Care Physician: Hunter Carvalho MD Attending Physician: Admit Status: From the Emergency Department, Full Admit, Remote Telemetry Chief Complaint: Multiple falls which might be possible syncopal episodes History of Present Illness: A 76-year-old male with a history of type II diabetes hypertension peripheral neuropathy who has a history of atrial fibrillation who is not on anticoagulation due to his falls. There is some question whether these are actual syncopal episodes per the . Patient had one again earlier today. He also with this one was noted to have right sided facial droop was just still persistent and noted some dysarthria which she notes has improved. He weighs in the emergency room included interrogation of his pacemaker which did show bursts of RVR A. fib up to close to 200 and with spontaneous resolution. He also was found to have acute kidney injury with BUN of 35 creatinine of 2.01. He also was found to have a white count of 27.6 but does have past history of it being elevated over the past year. Also was found to have low platelets today is 125 troponin is borderline elevated at 0.017 although keep in mind that patient does have acute kidney injury. CT of head without contrast reveals no acute intracranial abnormalities. Right frontal encephalomalacia is subjacent to craniotomy defect. Cerebral atrophy central greater than peripheral. Chronic deep white matter ischemic changes noted. His A. fib at a rate of [address] pressure and anterior septal leads. The elevations no acute T wave abnormalities chest x-ray reveals no acute cardiopulmonary abnormalities. Review of Systems: Patient denies any fevers or chills denies any nausea vomiting or diarrhea all other review of systems are reviewed and are negative except for as in history of present illness. Allergies Coded Allergies: macadamia nut oil (Verified Allergy, Unknown, nausea, chest pain, 12/27/16) Home Medications Scheduled Alpha Lipoic Acid (Alpha Lipoic Acid) 100 Mg Capsule 300 MG PO QAM Aspirin (Aspirin) 325 Mg Tablet 325 MG PO DAILY Cholecalciferol (Vitamin D3) (Vitamin D3) 1,000 Unit Tab.chew 1,000 UNIT PO QAM Cholestyramine/Aspartame (Cholestyramine Light Packet) 4 Gm Powd.pack 4 GM PO 3PM Cyanocobalamin (Vitamin B12) 500 Mcg Tablet 500 MCG PO QAM Finasteride (Finasteride) 5 Mg Tablet 5 MG PO QPM Metoprolol Tartrate (Metoprolol Tartrate) 100 Mg Tablet 100 MG PO BID Pravastatin (Pravastatin) 20 Mg Tablet 20 MG PO HS Tamsulosin (Flomax) 0.4 Mg Capsule 0.4 MG PO HS PMH 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 Colloid cyst Reports: Cancer, Diabetes mellitus, Hypertension Past Surgical History Total knee surgery x2 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 Brain surgery - colloid cyst removal Reports: Appendectomy, Cholecystectomy Family History Past family medical history of type II diabetes Social History Hx Alcohol Use: Yes Hx Substance Use: No Hx Tobacco Use: No Smoking Status: Former Smoker Living Arrangement: with Family Exam Vital Signs Vital Sign - Last Date Time Temp Pulse Resp B/P Pulse Ox O2 Delivery O2 Flow Rate FiO2 03/18/17 17:52 36.8 107 15 107/53 97 Room Air Exam Situational: Elderly male in no acute distress Head: Normocephalic atraumatic head does have right facial droop noted Neck: Carotids 2+ over 4 without bruits Chest: Clear to auscultation Cor: Tachycardic irregularly irregular S1-S2 Abdomen: Soft nontender bowel sounds present Extremities exams shows trace bilateral pedal edema with chronic venous stasis changes Neuro: He is alert and oriented 3, does have right facial droop with some drift of his right arm and also does have some dysarthria according to my exam Psych: Mood and affect are appropriate but is slightly blunted Skin: No rashes Lab and Diagnostics Labs Laboratory Tests 72 Hours Test 03/18/17 16:15 03/18/17 17:48 White Blood Count 27.6th/mm3 (3.8-10.1) Red Blood Count 4.60mil/mm3 (4.40-5.80) Hemoglobin 14.1g/dL (13.8-17.2) Hematocrit 42.8% (41.0-50.0) Mean Corpuscular Volume 93.0fL (81-100) Mean Corpuscular Hemoglobin 30.7pg (27.0-35.0) Mean Corpuscular Hemoglobin Concent 32.9% (32.0-37.0) Red Cell Distribution Width 13.9% (12.3-15.4) Platelet Count 125bil/L (150-400) Neutrophils (%) (Auto) 17% (40-74) Lymphocytes (%) (Auto) 82% (14-46) Monocytes (%) (Auto) 1% (4-12) Eosinophils (%) (Auto) 0% (0-5) Basophils (%) (Auto) 0% (0-3) Hematology Comments Wbc Prothrombin Time 11.4sec (8.1-12.5) Prothromb Time International Ratio 1.06ratio Sodium Level 143mEq/L (134-144) Potassium Level 4.4mEq/L (3.5-5.2) Chloride Level 108mEq/L (97-108) Carbon Dioxide Level 19mmol/L (18-29) Blood Urea Nitrogen 35mg/dL (8-27) Creatinine 2.01mg/dL (0.76-1.27) Estimat Glomerular Filtration Rate 35mL/min (>59) Glucose Level 100mg/dL (60-99) Calcium Level 8.9mg/dL (8.5-10.1) Magnesium Level 2.4mg/dL (1.6-2.6) Total Bilirubin 0.9mg/dL (0.0-1.2) Aspartate Amino Transf (AST/SGOT) 21U/L (0-50) Alanine Aminotransferase (ALT/SGPT) 17U/L (0-44) Alkaline Phosphatase 51U/L (25-160) Troponin T 0.017ug/L (0.0-0.011) Pro-B-Type Natriuretic Peptide 4478pg/mL (0-486) Total Protein 6.6g/dL (6.4-8.4) Albumin 4.1g/dL (3.4-5.0) Result Diagram: 03/18/17 1615 03/18/17 1615 X-Rays, CTs and MRIs PROCEDURE: CT BRAIN WITHOUT CONTRAST ([id number]) INDICATIONS: trauma TECHNIQUE: Noncontrast 4.5 mm thick angled axial sections acquired from the foramen magnum to the vertex, with coronal reformats. COMPARISON: CT brain 07/12/2016, 11/24/2014; MRI brain 11/17/2014 FINDINGS: Image quality: Excellent. CSF spaces: Basal cisterns are patent. No extra-axial fluid collections. The ventricles are enlarged and symmetric in size and shape. Brain: No intracranial bleeds or masses. Right frontal encephalomalacia subjacent to remote craniotomy defect. There is cerebral volume loss for age, with resultant ventricular and sulcal prominence. There are periventricular and deep white matter chronic small vessel ischemic changes. There is intracranial internal carotid artery atherosclerosis. Skull and face: Calvarium and visualized facial bones appear intact, without suspicious lesions. Sinuses: Visualized sinuses and mastoids are clear. IMPRESSION: 1. No acute intracranial abnormality or interval change. 2. Right frontal encephalomalacia is subjacent to craniotomy defect. 3. Cerebral atrophy, central greater than peripheral. Chronic deep white matter ischemic changes. Report called to Dr. Parada in the ED Dictated by: Lev Parson M.D. on 03/18/2017 at 16:41 Approved by: Lev Parson M.D. on 03/18/2017 at 16:43 PROCEDURE: X-RAY CHEST ONE VIEW, PORTABLE ([id number]) INDICATIONS: SHORT OF BREATH TECHNIQUE: One view of the chest was acquired. COMPARISON: None. FINDINGS: Surgical changes and devices: Median sternotomy. Dual-lead left-sided pacemaker appears in place and intact.. Lungs and pleura: No pleural effusions or pneumothorax. Lungs are clear. Mediastinum: Mediastinal contours appear normal. Heart size is normal. Bones and chest wall: No suspicious bony lesions. Overlying soft tissues appear unremarkable. IMPRESSION: No acute cardiopulmonary abnormality. Permanent pacemaker. Dictated by: Lev Parson M.D. on 03/18/2017 at 16:11 Approved by: Lev Parson M.D. on 03/18/2017 at 16:12 12-lead ECG EKG as noted in history of present illness Assessment & Plan # Possible CVA/TIA, acute, present on admission -May be related to atrial fibrillation -We will check echocardiogram -Chek MR stroke protocol -Place on telemetry -Add Plavix to ASA regimen -OT, PT, speech therapy consultations in a.m. # RVR A. fib, paroxysmal, not present on admission although controlled rate A. fib is present on admission -Place on telemetry -When necessary IV metoprolol -May be cause of his syncopal episodes # Syncopal episodes, recurrent, present on admission -Maybe related to RVR A. fib -Further evaluation needed which includes neurological workup and echocardiogram and telemetry #Acute kidney injury, acute, present on admission -Give IV fluid hydration -Check renal ultrasound -Recheck labs in a.m. -Check urine analysis with micro-culture if indicated #Leukocytosis with thrombocytopenia, subacute, present on admission -Consider hematology consult while patient is inpatient but could also be done as outpatient # DVT prophylaxis -We will go ahead and use SCDs but not put on subcutaneous anticoagulant given relatively low platelet count #CODE STATUS -Patient is full code Pain Evaluation: Adequate Pain Control VTE Prophylaxis: Sub-Q Heparin (Unfractionated), SCDs Resuscitation Status: CPR: Attempt Resuscitation Time spent 60 minutes Darlin Ballard MD Mar 18, 2017 18:21
[2017-03-18] MEDS ORDERED: FLEC100T2 PO (18:27)
[2017-03-18] MEDS ORDERED: POLY17PO6 PO (18:27)
[2017-03-18] MEDS ORDERED: Glucose 40% Oral Gel 15 Gm Tube PO PRN (18:30)
[2017-03-18] MEDS ORDERED: Dextrose 10% 250 ML IV PRN (18:35)
[2017-03-18 19:06] LABS: TROPONIN T 0.015 ug/L (0.0-0.011)
[2017-03-18] MEDS ORDERED: METO50TA3 PO (19:07)
[2017-03-18] MEDS ORDERED: IBUP200C PO (19:07)
--- NOTE | 2017-03-18 19:07 | DRSVH ---
PROCEDURE: US RENAL SONOGRAM INDICATIONS: RANDY TECHNIQUE: Real-time scanning was performed of the kidneys and bladder, with image documentation. COMPARISON: [facility], US, US CAROTID DPLX DOPPLER BILAT, 07/12/2016, 21:09. FINDINGS: Kidneys: Kidneys are normal in size. Right kidney measures 9.7 cm long; left kidney measures 12.2 c m long. Right renal cortical thickness is 1.2 cm; left renal cortical thickness is 1.6 cm. Renal co rtical echotexture is normal. No hydronephrosis or nephrolithiasis. No suspicious solid mass lesion s. Multiple cysts in the left kidney measuring up to 4.2 CM. Bladder: The patient was unable to void. The prostate is enlarged. Miscellaneous: No free pelvic fluid. IMPRESSION: Left renal cysts. No hydronephrosis or ureterectasis. No renal or ureteral calculi. The r ight kidney is moderately smaller than the left kidney. Dictated by: Jayjay Mckeon M.D. on 03/18/2017 at 19:03 Approved by: Jayjay Mckeon M.D. on 03/18/2017 at 19:05
[2017-03-18 19:30] VITALS: PULSE 115
[2017-03-18 19:34] VITALS: BP 115/65; PULSE 115; RESP 22; O2SAT 96
[2017-03-18] MEDS: Cholestyramine Resin Powder 4 Gm Packet PO SCH (19:35)
[2017-03-18 19:50] LABS: APPEARANCE,URINE HAZY (CLEAR,HAZY); COLOR,URINE YELLOW (YELLOW); OCCULT BLOOD,URINE LARGE (NEGATIVE); PH,URINE 5.5 (5.0-8.0); UROBILINOGEN,URINE NORMAL (NORMAL)
[2017-03-18] MEDS: Insulin LISPRO 300 Unit/3 mL Inj SUBQ SCH (22:00)
[2017-03-18] MEDS: 0.9% Sodium Chloride 1,000 ML IV SCH (22:15)
[2017-03-19] VITALS (7 sets, daily range): BP systolic 102–113; BP diastolic 65–77; PULSE 65–94; RESP 18–20; O2SAT 94–95
[2017-03-19] MEDS: 0.9% Sodium Chloride 1,000 ML IV SCH ×3 (02:05→20:43)
--- NOTE | 2017-03-19 02:42 | NUR ---
ADMIT Patient admit for fall and syncopal episode. Various bruises and abrasions noted on admit. Patient denies any pain. Reports he does not know what happened and that he has had numerous falls recently. Patient instructed to use call light and not get up without assistance. Patient agrees and has been using call light appropriately. Has redness in his groin in what appears to be yeast, and reports some bleeding to this area, though he thought he might have injured his scrotum per the fall. MD notified and request for nystatin. No new orders at this time. Patient is in AFib with rate 110-120s. Denies SOB. Will continue to monitor.
[2017-03-19 06:18] LABS: Mean Corpuscular Volume 93.1 fL (81-100); Platelet Count 98 bil/L (150-400)
[2017-03-19 06:58] LABS: BASOPHILS % (AUTO) 0 % (0-3); EOSINOPHILS % (AUTO) 0 % (0-5); MONOCYTES % (AUTO) 1 % (4-12); NEUTROPHILS % (AUTO) 18 % (40-74)
[2017-03-19 07:22] LABS: TROPONIN T 0.024 ug/L (0.0-0.011)
[2017-03-19] MEDS: Insulin LISPRO 300 Unit/3 mL Inj SUBQ SCH ×4 (08:00→20:44)
[2017-03-19] MEDS: cefTRIAXone Inj 1,000 MG in Dextrose 5% Minibag Plus 50 ML IV SCH (08:54)
--- NOTE | 2017-03-19 15:04 | NUR ---
PRV 274mls PRV. Pt has started abx for UTI and with the 274mls PRV pt denies urge to urinate. Will continue monitoring. Pt AOX3. No acute neuro deficits noted. Chronic bilateral LE neuropathy.
--- NOTE | 2017-03-19 15:24 | PCM.PNMED ---
Subjective Date of Service Mar 19, 2017 Subjective A little confused. No urinary symptoms. No chest or abdomen pain. No dyspnea. Fell yesterday. No new numbness or weakness of extremities. No problems speaking. No overnight events noted. Exam Vital Signs Vital Sign - Last Date Time Temp Pulse Resp B/P Pulse Ox O2 Delivery O2 Flow Rate FiO2 03/19/17 14:50 36.8 84 18 104/77 95 Room Air Intake and Output 03/18/17 03/18/17 03/19/17 Cumulative From/Thru 15:00 23:00 07:00 03/18/17 15:08 - 03/19/17 06:49 Intake Total 1501 ml 1501 ml Output Total 400 ml 400 ml Balance 1101 ml 1101 ml Intake Oral 518 ml 518 ml IV Total 983 ml 983 ml Output Urine Total 400 ml 400 ml IVs and Medications Medications Reviewed: Medications were reviewed in detail Lab and Diagnostics Result Diagram: 03/19/17 0550 03/19/17 0550 X-Rays, CTs and MRIs PROCEDURE: CT BRAIN WITHOUT CONTRAST ([id number]) INDICATIONS: trauma TECHNIQUE: Noncontrast 4.5 mm thick angled axial sections acquired from the foramen magnum to the vertex, with coronal reformats. COMPARISON: CT brain 07/12/2016, 11/24/2014; MRI brain 11/17/2014 FINDINGS: Image quality: Excellent. CSF spaces: Basal cisterns are patent. No extra-axial fluid collections. The ventricles are enlarged and symmetric in size and shape. Brain: No intracranial bleeds or masses. Right frontal encephalomalacia subjacent to remote craniotomy defect. There is cerebral volume loss for age, with resultant ventricular and sulcal prominence. There are periventricular and deep white matter chronic small vessel ischemic changes. There is intracranial internal carotid artery atherosclerosis. Skull and face: Calvarium and visualized facial bones appear intact, without suspicious lesions. Sinuses: Visualized sinuses and mastoids are clear. IMPRESSION: 1. No acute intracranial abnormality or interval change. 2. Right frontal encephalomalacia is subjacent to craniotomy defect. 3. Cerebral atrophy, central greater than peripheral. Chronic deep white matter ischemic changes. Report called to Dr. Parada in the ED Dictated by: Lev Parson M.D. on 03/18/2017 at 16:41 Approved by: Lev Parson M.D. on 03/18/2017 at 16:43 PROCEDURE: X-RAY CHEST ONE VIEW, PORTABLE ([id number]) INDICATIONS: SHORT OF BREATH TECHNIQUE: One view of the chest was acquired. COMPARISON: None. FINDINGS: Surgical changes and devices: Median sternotomy. Dual-lead left-sided pacemaker appears in place and intact.. Lungs and pleura: No pleural effusions or pneumothorax. Lungs are clear. Mediastinum: Mediastinal contours appear normal. Heart size is normal. Bones and chest wall: No suspicious bony lesions. Overlying soft tissues appear unremarkable. IMPRESSION: No acute cardiopulmonary abnormality. Permanent pacemaker. Dictated by: Lev Parson M.D. on 03/18/2017 at 16:11 Approved by: Lev Parson M.D. on 03/18/2017 at 16:12 12-lead ECG EKG as noted in history of present illness Assessment & Plan # Syncopal episode, acute, present on admission and resolved. -May be related to atrial fibrillation, has bursts of RVR on pacer interrogation. -Negative head CT, can't have an MRI due to pacemaker. -Place on telemetry, no new problems seen ovr night. -Add Plavix to ASA regimen -OT, PT, speech therapy consultations in a.m. # Paroxysmal atrial fibrillation with rapid ventricular response, not present on admission although controlled rate A. fib is present on admission -Place on telemetry and follow -May be cause of his syncopal episodes #. Urine tract infection with leukocytosis, present on admission and improving - continue ceftriaxone IV, follow cultures. #. Acute kidney injury, acute, present on admission and improving. -Give IV fluid hydration -Check renal ultrasound -Recheck labs in a.m. -Check urine analysis with micro-culture if indicated #. Thrombocytopenia, subacute, present on admission -Consider hematology consult while patient is inpatient but could also be done as outpatient # DVT prophylaxis -We will go ahead and use SCDs but not put on subcutaneous anticoagulant given relatively low platelet count #CODE STATUS -Patient is full code Possible discharge Thur if better. VTE Prophylaxis: Sub-Q Heparin (Unfractionated), SCDs Resuscitation Status: CPR: Attempt Resuscitation Ankit Samuels MD Mar 19, 2017 15:24
[2017-03-19] MEDS: Cholestyramine Resin Powder 4 Gm Packet PO SCH (16:11)
--- NOTE | 2017-03-19 16:53 | NUR ---
Social Work-initial assessment/multidisciplinary rounds: Data:See initial assessment. Pt is a 76 y/o male who was admitted on 03/18/17 for syncope per H&P. Pt's insurance is [employer]. Pt's PCP is Hunter Carvalho MD. EMR Reviewed. Pt's readmission score is 1. SW met with pt at bedside to discuss discharge planning, SW role explained. Pt is alert and oriented x3. Pt resides at home with his in a two story home, pt and just moved in last week. Pt is able to stay on one level of the house. Pt does not drive and uses a fww at baseline. Pt has no SNF history, but is currently open with [facility] for PT/OT/ [employer]. Pt has no [place] [facility] care insurance or [place] benefits. SW discussed DPOA/ advanced directive,pt has completed this, SW encouraged a copy to be brought in. ST has seen pt and cleared pt for home. PT evaluation is pending. MD order received for resume HH services, SHANIKA placed a call to Marito Melendez and left message informing him of pt's admission and provided access. No concerns noted in morning rounds regarding pt's capacity for self care from RN or MD. SW provided pt with discharge planning checklist and encouraged pt to call with any questions, phone number provided on white board in room. SHANIKA spoke with pt's Iesha who confirms all the above information and states that she will be providing transport home. Iesha would like to speak with RN, phone number passed along. Pt will need resume HH orders at discharge. SW will continue to follow. Assessment:Pt who is independent at baseline. Plan:Pt to discharge home when medically stable via POV. Pt evaluation is pending. ST has cleared for home. Pt is open with [facility] for PT/OT/[employer], resume orders needed at discharge. LORENE Acosta Addendum: 03/19/17 at 1751 by RUMA FOLEY SS Amended: Links added.
--- NOTE | 2017-03-19 17:56 | NUR ---
Neuro Pt AOX3. Not been out of bed yet. No neuro deficits noted. Chronic bilateral LE neuropathy. PT and OT eval 03/20. Care ongoing. Tele A-fib occasionally paced. Rate 70-80's.
[2017-03-19] MEDS: Heparin 5,000 Unit/mL Inj SUBQ SCH ×2 (20:30→20:43)
[2017-03-20] VITALS (9 sets, daily range): BP systolic 98–123; BP diastolic 63–79; PULSE 78–107; RESP 20–22; O2SAT 93–97
--- NOTE | 2017-03-20 05:00 | NUR ---
Uneventful night Patient slept intermittently, alert and oriented, cooperative with care. Vital signs stable, denies pain. No attempt to get out of bed, but turns independently. Blood glucose 115 at HS. Neuro checks unremarkable with bilaterally equal strength, clear speech. Bed alarm on and intentional rounding in place.
[2017-03-20] MEDS: Insulin LISPRO 300 Unit/3 mL Inj SUBQ SCH ×4 (07:46→21:20)
[2017-03-20] MEDS: cefTRIAXone Inj 1,000 MG in Dextrose 5% Minibag Plus 50 ML IV SCH (07:47)
[2017-03-20] MEDS: Heparin 5,000 Unit/mL Inj SUBQ SCH ×2 (07:48→20:30)
[2017-03-20] MEDS: 0.9% Sodium Chloride 1,000 ML IV SCH (09:18)
--- NOTE | 2017-03-20 10:12 | NUR ---
Evaluation completed. Please go to "Notes" then click on "Assessments and Notes" (bottom left corner of screen). Then select appropriate discipline tab on top of screen.
--- NOTE | 2017-03-20 11:28 | NUR ---
Metoprolol patient refused to take Metoprolol AM 100 mg due to home dose Metoprolol 50 mg twice daily per patient. notified Dr. Samuels and aware. Awaiting new orders for metoprolol.
--- NOTE | 2017-03-20 11:31 | DRSVH ---
[facility] [address] [place] [address] Echocardiogram Report Name: JEYSON AARON DStudy Date: 03/19/2017 Height: 74 in Hospital Exam Location: [facility] Weight: 266 lb Gender: Male BSA: 2.5 m2 : 1940 Age: 76 yrs BP: 106/68 mmHg Reason For Study: CVA Ordering Physician: [facility] Performed By: Madeleine Santiago Referring Physician: Ambrocio Levy Interpretation Summary 1) Normal left ventricular size, wall motion, and systolic function (EF 65- 70%). 2) Mildly dilated right ventricle with normal function. 3) Severe biatrial enlargement 4) Mild aortic stenosis (mean gradient 14mmHg, valve area 1.8cm2). 6) Mild aortic regurgitation. 7) Mildly dilated ascending aorta (diameter 4.3cm) and borderline dilated aortic root (diameter 4.1cm). 8) Atrial fibrillation present during the study. 9) Compared to the Echo done 07/13/2016, mild RV enlargement, severe right atrial enlargement, and atrial fibrillation are present on today's study. Procedure: A two-dimensional transthoracic echocardiogram with color flow and Doppler was performed. The study quality was technically difficult. Comparison is made with the echocardiogram of 07/13/16. The patient was in atrial fibrillation with heart rates between 66-106 bpm during the exam. Left Ventricle: The left ventricle is normal in size. Proximal septal thickening is noted. Left ventricular wall thickness is at the upper limits of normal. The ejection fraction is estimated to be 65-70%. Diastolic function could not be accurately assessed due to atrial fibrillation. Right Ventricle: The right ventricle is mildly dilated. There is a pacemaker lead in the right ventricle. The right ventricular systolic function is normal. Atria: The left atrium is severely dilated. The right atrium is severely dilated. The interatrial septum is intact with no evidence for an atrial septal defect. Mitral Valve: There is moderate mitral annular calcification. The mitral valve leaflets appear thickened, but open well. There is trace mitral regurgitation. Aortic Valve: The aortic valve is moderately calcified. The aortic valve is trileaflet. The peak aortic velocity is 2.6 m/sec. The peak aortic velocity on the previous exam was 2.9 m/sec. The calculated aortic valve area is 1.8 cm2. The aortic valve mean gradient is 13.5 mmHg. The severity ratio is 0.52. There is mild aortic regurgitation. Tricuspid Valve: The tricuspid valve is not well visualized, but is grossly normal. No tricuspid regurgitation. Pulmonary artery pressures cannot be estimated because of the lack of a measurable TR jet velocity. Pulmonic Valve: The pulmonic valve is not well seen, but is grossly normal. There is mild pulmonic regurgitation. Great Vessels: Borderline dilated aortic root. The ascending aorta is mildly enlarged. The pulmonary artery is not well visualized, but is probably normal size. The inferior vena cava was not visualized. Pericardium/ Pleura There is no pericardial effusion. There is no pleural effusion. MMode/2D Measurements & Calculations LVIDd: 4.3 cm RA long axis LVOT diam LVIDs: 3.3 cm LA A2 area: 30.6 cm FS: 24.2 % LA A4 area: 35.4 cm RA area Ao root diam IVSd: 1.4 cm LA length (vol): 8.1 cm LVPWd: 1.0 cm LA vol: 113.5 ml : 28.6 cm asc Aorta LA vol index RA vol Diam: 4.3 cm : 126.ml : 46.3 ml/m2 RA : 51.7 mm2 LV singh. diameter/BSA LV sys. diameter/BSA RVD1 (basal) (cm/m^2): 1.8 (cm/m^2): 1.3 Doppler Measurements & Calculations Ao V2 max MV E max grant PA V2 max MV V2 mean : 259.7 cm/sec : 171.8 cm/sec : 60.1 cm/sec : 98.6 cm/sec Ao max PG MVA(VTI): 1.9 cm2 PA mean PG MV mean P.0 mmHg : 27.0 mmHg : 0.88 mmHg MV V2 VTI: 40.2 cm Ao mean PG PA Accel Time : 13.5 mmHg LVOT Max Grant : 121.6 cm/sec STELLA(I,D): 1.8 cm sev ratio Ao V2 mean LV V1 max PG PA V2 mean STELLA indexed to BSA : 172.5 cm/sec : 44.7 cm/sec (cm^2/m^2): 0.74 Ao V2 VTI: 42.8 cmLV V1 VTI: 22.1 cm PA pr(Accel) : 45.7 mmHg STELLA(V,D): 1.6 cm2 Reading Physician:03:15 PM
--- NOTE | 2017-03-20 14:35 | NUR ---
Mentation Patient is alert and orientedX3. Able to make needs known. Stable VS, room air oxygen. stable blood sugars this shift so far. PO metoprolol given as ordered by Dr. Samuels. Patient worked with PT and OT this shift, see PT/OT notes. 100% with all meals so far this shift. on Tele, per tele Sr 103 afib occ vpaced, has history of Afib. patient is asymptomatic and watching TV. call light with in reach for safety and uses appropriately. stable mood. Deneis pain or discomfort. No acute sign and symptoms of cardiac/respiratory distress noted. continue to monitor.
--- NOTE | 2017-03-20 14:55 | PCM.PNMED ---
Subjective Date of Service Mar 20, 2017 Subjective The patient is doing relatively well. No palpitations or dyspnea. No chest pain or abdominal pain. He continues to feel somewhat weak but has not had physical therapy yet today. Dr. Reis did increase his metoprolol from 5200 twice a day due to periods of rapid ventricular fibrillation with his paroxysmal atrial fibrillation. He has been in a Since Friday. No other overnight events noted His is quite apprehensive about his return home. The patient is reluctant to consider a nursing facility or other rehabilitation stay. Exam Vital Signs Vital Sign - Last Date Time Temp Pulse Resp B/P Pulse Ox O2 Delivery O2 Flow Rate FiO2 03/20/17 13:18 36.6 100 22 116/79 96 Room Air Intake and Output 03/19/17 03/19/17 03/20/17 Cumulative From/Thru 15:00 23:00 07:00 03/18/17 15:08 - 03/20/17 06:53 Intake Total 959 ml 1041 ml 3501 ml Output Total 350 ml 750 ml Balance 959 ml 691 ml 2751 ml Intake Oral 100 ml 618 ml IV Total 959 ml 941 ml 2883 ml Output Urine Total 350 ml 750 ml # Voids 2 2 # Bowel Movements 1 1 Exam Alert and oriented -3, no distress. Fluent speech Anicteric sclera. Lungs are clear with normal rate and effort Heart is irregular without murmur gallop or rub Abdomen soft nontender, flat Extremities are with 1+ Skin is free of rash or lesions. IVs and Medications Medications Reviewed: Medications were reviewed in detail Lab and Diagnostics Result Diagram: 03/19/17 0550 03/19/17 0550 X-Rays, CTs and MRIs PROCEDURE: CT BRAIN WITHOUT CONTRAST ([id number]) INDICATIONS: trauma TECHNIQUE: Noncontrast 4.5 mm thick angled axial sections acquired from the foramen magnum to the vertex, with coronal reformats. COMPARISON: CT brain 07/12/2016, 11/24/2014; MRI brain 11/17/2014 FINDINGS: Image quality: Excellent. CSF spaces: Basal cisterns are patent. No extra-axial fluid collections. The ventricles are enlarged and symmetric in size and shape. Brain: No intracranial bleeds or masses. Right frontal encephalomalacia subjacent to remote craniotomy defect. There is cerebral volume loss for age, with resultant ventricular and sulcal prominence. There are periventricular and deep white matter chronic small vessel ischemic changes. There is intracranial internal carotid artery atherosclerosis. Skull and face: Calvarium and visualized facial bones appear intact, without suspicious lesions. Sinuses: Visualized sinuses and mastoids are clear. IMPRESSION: 1. No acute intracranial abnormality or interval change. 2. Right frontal encephalomalacia is subjacent to craniotomy defect. 3. Cerebral atrophy, central greater than peripheral. Chronic deep white matter ischemic changes. Report called to Dr. Parada in the ED Dictated by: Lev Parson M.D. on 03/18/2017 at 16:41 Approved by: Lev Parson M.D. on 03/18/2017 at 16:43 PROCEDURE: X-RAY CHEST ONE VIEW, PORTABLE ([id number]) INDICATIONS: SHORT OF BREATH TECHNIQUE: One view of the chest was acquired. COMPARISON: None. FINDINGS: Surgical changes and devices: Median sternotomy. Dual-lead left-sided pacemaker appears in place and intact.. Lungs and pleura: No pleural effusions or pneumothorax. Lungs are clear. Mediastinum: Mediastinal contours appear normal. Heart size is normal. Bones and chest wall: No suspicious bony lesions. Overlying soft tissues appear unremarkable. IMPRESSION: No acute cardiopulmonary abnormality. Permanent pacemaker. Dictated by: Lev Parson M.D. on 03/18/2017 at 16:11 Approved by: Lev Parson M.D. on 03/18/2017 at 16:12 12-lead ECG EKG as noted in history of present illness Assessment & Plan # Syncopal episode, acute, present on admission and resolved. The specific etiology is unclear. There is some concern or question about paroxysmal A. fib with periods of RVR. -May be related to atrial fibrillation, has bursts of RVR on pacer interrogation. -Negative head CT, can't have an MRI due to pacemaker. -Place on telemetry, no new problems seen ovr night. -Add Plavix to ASA regimen -OT, PT, speech therapy consultations in a.m. This is a somewhat subacute issue with 5 falls over 5 months. It is all likely that he may improve with intensive physical therapy if he were willing to consider a rehabilitation stay. # Paroxysmal atrial fibrillation with rapid ventricular response, tachycardia not present on admission although controlled rate A. fib is present on admission -Place on telemetry and follow -May be cause of his syncopal episodes The plan is to optimize rate control by increasing metoprolol 200 twice a day. #. Urine tract infection with leukocytosis, present on admission and improving - continue ceftriaxone IV, follow cultures. Initial cultures indicate a streptococcal species, 100,000 CFU. Continue to follow cultures. #. Acute kidney injury, acute, present on admission and improving. -Give IV fluid hydration -Renal ultrasound unremarkable -We will reviewed. Creatinine today #. Thrombocytopenia, subacute, present on admission and stable -. CBC today and follow. #. Leukocytosis, present on admission and active. This may be partially related to a urinary tract infection. There is also concern regarding a possible hematologic issue. The patient has a heme on appointment scheduled for the next week. The possible concern could be undiagnosed CLL. # DVT prophylaxis -We will go ahead and use SCDs but not put on subcutaneous anticoagulant given relatively low platelet count #CODE STATUS -Patient is full code Possible discharge right ear Friday depending on clinical course and discharge planning which may involve home health resume eating versus a senior living facility rehabilitation stay. The patient continues to be reluctant to consider this. Recently has moved to a new house which is not equipped with disability mitigation measures including a ramp or bars. PT and OT both recommend SNF for a transitional rehab. He continues to be resistant to SNF and wants to go home with PT/OT VTE Prophylaxis: Sub-Q Heparin (Unfractionated), SCDs Resuscitation Status: CPR: Attempt Resuscitation Ankit Samuels MD Mar 20, 2017 14:54
--- NOTE | 2017-03-20 15:01 | NUR ---
Evaluation completed. Please go to "Notes" then click on "Assessments and Notes" (bottom left corner of screen). Then select appropriate discipline tab on top of screen.
[2017-03-20 15:30] LABS: Mean Corpuscular Hemoglobin 30.5 pg (27.0-35.0); Mean Corpuscular Volume 92.6 fL (81-100)
[2017-03-20] MEDS: Cholestyramine Resin Powder 4 Gm Packet PO SCH (16:38)
--- NOTE | 2017-03-20 16:42 | NUR ---
PT and OT today Addendum: 03/20/17 at 1642 by PAU RESENDIZ RN Amended: Links added.
--- NOTE | 2017-03-20 23:26 | NUR ---
HS Metoprolol held/refused Patient's HS blood pressure was 98/63, HR 83. 100 mg Metoprolol ordered for this time. Discussed blood pressure and medications with patient, patient declined taking Metoprolol this evening. Agreeable to take later if blood pressure or heart rate increase. Will continue to monitor, on remote telemetry.
[2017-03-21] VITALS (11 sets, daily range): BP systolic 99–135; BP diastolic 69–93; PULSE 76–117; RESP 18–22; O2SAT 94–97
[2017-03-21] MEDS: Insulin LISPRO 300 Unit/3 mL Inj SUBQ SCH ×4 (08:00→22:00)
[2017-03-21] MEDS: Heparin 5,000 Unit/mL Inj SUBQ SCH ×2 (08:30→22:32)
[2017-03-21] MEDS: cefTRIAXone Inj 1,000 MG in Dextrose 5% Minibag Plus 50 ML IV SCH (09:15)
--- NOTE | 2017-03-21 10:26 | PCM.PNMED ---
Subjective Date of Service Mar 21, 2017 Subjective Patient seen and examined. No complaints. Vitals noted. Exam Vital Signs Vital Sign - Last Date Time Temp Pulse Resp B/P Pulse Ox O2 Delivery O2 Flow Rate FiO2 03/21/17 08:18 36.7 106 20 116/71 96 Room Air Intake and Output 03/20/17 03/20/17 03/21/17 Cumulative From/Thru 15:00 23:00 07:00 03/18/17 15:08 - 03/21/17 06:57 Intake Total 2287 ml 120 ml 5908 ml Output Total 900 ml 720 ml 2370 ml Balance 1387 ml -600 ml 3538 ml Intake Oral 997 ml 120 ml 1735 ml IV Total 1290 ml 4173 ml Output Urine Total 900 ml 720 ml 2370 ml # Voids 1 3 # Bowel Movements 1 Exam Head: Normocephalic atraumatic head does have right facial droop noted Chest: Clear to auscultation Cor: Tachycardic irregularly irregular S1-S2 Abdomen: Soft nontender bowel sounds present Extremities exams shows trace bilateral pedal edema with chronic venous stasis changes Neuro: He is alert and oriented 3, does have right facial droop with some drift of his right arm and also does have some dysarthria according to my exam Psych: Mood and affect are appropriate Lab and Diagnostics Result Diagram: 03/20/17 1510 03/21/17 0557 X-Rays, CTs and MRIs PROCEDURE: CT BRAIN WITHOUT CONTRAST ([id number]) INDICATIONS: trauma TECHNIQUE: Noncontrast 4.5 mm thick angled axial sections acquired from the foramen magnum to the vertex, with coronal reformats. COMPARISON: CT brain 07/12/2016, 11/24/2014; MRI brain 11/17/2014 FINDINGS: Image quality: Excellent. CSF spaces: Basal cisterns are patent. No extra-axial fluid collections. The ventricles are enlarged and symmetric in size and shape. Brain: No intracranial bleeds or masses. Right frontal encephalomalacia subjacent to remote craniotomy defect. There is cerebral volume loss for age, with resultant ventricular and sulcal prominence. There are periventricular and deep white matter chronic small vessel ischemic changes. There is intracranial internal carotid artery atherosclerosis. Skull and face: Calvarium and visualized facial bones appear intact, without suspicious lesions. Sinuses: Visualized sinuses and mastoids are clear. IMPRESSION: 1. No acute intracranial abnormality or interval change. 2. Right frontal encephalomalacia is subjacent to craniotomy defect. 3. Cerebral atrophy, central greater than peripheral. Chronic deep white matter ischemic changes. Report called to Dr. Parada in the ED Dictated by: Lev Parson M.D. on 03/18/2017 at 16:41 Approved by: Lev Parson M.D. on 03/18/2017 at 16:43 PROCEDURE: X-RAY CHEST ONE VIEW, PORTABLE ([id number]) INDICATIONS: SHORT OF BREATH TECHNIQUE: One view of the chest was acquired. COMPARISON: None. FINDINGS: Surgical changes and devices: Median sternotomy. Dual-lead left-sided pacemaker appears in place and intact.. Lungs and pleura: No pleural effusions or pneumothorax. Lungs are clear. Mediastinum: Mediastinal contours appear normal. Heart size is normal. Bones and chest wall: No suspicious bony lesions. Overlying soft tissues appear unremarkable. IMPRESSION: No acute cardiopulmonary abnormality. Permanent pacemaker. Dictated by: Lev Parson M.D. on 03/18/2017 at 16:11 Approved by: Lev Parson M.D. on 03/18/2017 at 16:12 12-lead ECG EKG as noted in history of present illness Assessment & Plan # Syncopal episode, acute, present on admission and resolved. The specific etiology is unclear. There is some concern or question about paroxysmal A. fib with periods of RVR. -May be related to atrial fibrillation, has bursts of RVR on pacer interrogation. -Negative head CT, can't have an MRI due to pacemaker. -Place on telemetry, no new problems seen ovr night. -Add Plavix to ASA regimen -OT, PT, speech therapy consultations in a.m. This is a somewhat subacute issue with 5 falls over 5 months. It is all likely that he may improve with intensive physical therapy if he were willing to consider a rehabilitation stay. Patient denying SNF # Paroxysmal atrial fibrillation with rapid ventricular response, tachycardia not present on admission although controlled rate A. fib is present on admission -Place on telemetry and follow -May be cause of his syncopal episodes - likely exacerbated by current infection The plan is to optimize rate control by increasing metoprolol 200 twice a day. #. Urine tract infection with leukocytosis, present on admission and improving - continue ceftriaxone IV, follow cultures. Initial cultures indicate a streptococcal species, 100,000 CFU. Continue to follow cultures. #. Acute kidney injury, acute, present on admission and improving. -Give IV fluid hydration -Renal ultrasound unremarkable - cr trended down , component of CKD cannot be ruled out #. Thrombocytopenia, subacute, present on admission and stable -. CBC today and follow. #. Leukocytosis, present on admission and active. This may be partially related to a urinary tract infection. There is also concern regarding a possible hematologic issue. The patient has a heme on appointment scheduled for the next week. The possible concern could be undiagnosed CLL. # DVT prophylaxis -We will go ahead and use SCDs but not put on subcutaneous anticoagulant given relatively low platelet count #CODE STATUS -Patient is full code Possible discharge right ear Friday depending on clinical course and discharge planning which may involve home health resume eating versus a long term facility rehabilitation stay. The patient continues to be reluctant to consider this. Recently has moved to a new house which is not equipped with disability mitigation measures including a ramp or bars. PT and OT both recommend SNF for a transitional rehab. He continues to be resistant to SNF and wants to go home with PT/OT VTE Prophylaxis: Sub-Q Heparin (Unfractionated), SCDs Resuscitation Status: CPR: Attempt Resuscitation Time spent 35 mins Jared Hernandez MD Mar 21, 2017 10:26
--- NOTE | 2017-03-21 12:44 | NUR ---
HR Notified by tele that pt HR went up to 120-140's. Pt was up to BR at that time but after 20 min or so still elevated to 110s. Prior to this pt was 70-80's. Pt just received morning meds including 100 mg PO metoprolol. Spoke with MD and monitor after metoprolol in system. on reassessment later, HR down to 99-100 per tele.
[2017-03-21] MEDS: Cholestyramine Resin Powder 4 Gm Packet PO SCH (17:52)
[2017-03-22] VITALS (8 sets, daily range): BP systolic 92–118; BP diastolic 60–75; PULSE 63–100; RESP 16–18; O2SAT 93–98
--- NOTE | 2017-03-22 04:06 | NUR ---
HR/BP Per court recording monitor Pt HR 80's, afib and Vpaced. Pt denies CP. Up with 1EA but weak and unsteady. BP stable 101/65. Denies Pain. Call light in reach, bed in low position. Care continues
[2017-03-22 07:01] LABS: Mean Corpuscular Hemoglobin 30.4 pg (27.0-35.0); Mean Corpuscular Volume 92.9 fL (81-100); Platelet Count 94 bil/L (150-400)
[2017-03-22 07:33] LABS: BASOPHILS % (AUTO) 0 % (0-3); EOSINOPHILS % (AUTO) 0 % (0-5); MONOCYTES % (AUTO) 3 % (4-12); NEUTROPHILS % (AUTO) 20 % (40-74)
[2017-03-22] MEDS: Insulin LISPRO 300 Unit/3 mL Inj SUBQ SCH ×4 (08:00→20:05)
[2017-03-22] MEDS: cefTRIAXone Inj 1,000 MG in Dextrose 5% Minibag Plus 50 ML IV SCH (09:34)
[2017-03-22] MEDS: Heparin 5,000 Unit/mL Inj SUBQ SCH ×2 (09:35→19:57)
--- NOTE | 2017-03-22 11:20 | NUR ---
GISELLA Signed. LORENE Acosta
--- NOTE | 2017-03-22 12:29 | NUR ---
Social Work-readiness for discharge/multidisciplinary rounds: Data:EMR Reviewed. Pt is on day 4 of hospitalization for syncope per H&P. Pt is likely medically stable later today or tomorrow. PT/OT recommending SNF vs home with 24/7 care. SW followed up with pt and at bedside, SW role explained. Pt and confirm they will be retuning home at discharge, will be able to provide 24/7 care at home. SW explained [facility] would get back in place, both agreeable to this plan. Resume HH order to be completed by MD at discharge. pt open with [facility] for PT/Ot, and CERTIFIED DENTAL ASSISTANT. Pt's to provide transport home. SW will continue to follow. Assessment:Pt who has HH services. Plan:pt to discharge home when medically stable via POV. to provide 24/7 care at home. Pt open with [facility] for PT/OT, and CERTIFIED DENTAL ASSISTANT, pt will need resume HH orders at discharge. SW will continue to follow. LORENE Acosta
--- NOTE | 2017-03-22 12:50 | PCM.PNMED ---
Subjective Date of Service Mar 22, 2017 Subjective Patient seen and examined. No complaints today. Vitals noted. Exam Vital Signs Vital Sign - Last Date Time Temp Pulse Resp B/P Pulse Ox O2 Delivery O2 Flow Rate FiO2 03/22/17 12:38 36.8 94 18 92/60 96 Room Air Intake and Output 03/21/17 03/21/17 03/22/17 Cumulative From/Thru 15:00 23:00 07:00 03/18/17 15:08 - 03/22/17 05:33 Intake Total 1045 ml 250 ml 7203 ml Output Total 750 ml 500 ml 3620 ml Balance 295 ml -250 ml 3583 ml Intake Oral 970 ml 250 ml 2955 ml IV Total 75 ml 4248 ml Output Urine Total 750 ml 500 ml 3620 ml # Voids 2 5 # Bowel Movements 1 2 Exam Head: Normocephalic atraumatic head does have right facial droop noted Chest: Clear to auscultation Cor: Tachycardic irregularly irregular S1-S2 Abdomen: Soft nontender bowel sounds present Extremities exams shows trace bilateral pedal edema with chronic venous stasis changes Neuro: He is alert and oriented 3, does have right facial droop with some drift of his right arm and also does have some dysarthria according to my exam Psych: Mood and affect are appropriate Lab and Diagnostics Result Diagram: 03/22/17 0610 03/22/17 0610 X-Rays, CTs and MRIs PROCEDURE: CT BRAIN WITHOUT CONTRAST ([id number]) INDICATIONS: trauma TECHNIQUE: Noncontrast 4.5 mm thick angled axial sections acquired from the foramen magnum to the vertex, with coronal reformats. COMPARISON: CT brain 07/12/2016, 11/24/2014; MRI brain 11/17/2014 FINDINGS: Image quality: Excellent. CSF spaces: Basal cisterns are patent. No extra-axial fluid collections. The ventricles are enlarged and symmetric in size and shape. Brain: No intracranial bleeds or masses. Right frontal encephalomalacia subjacent to remote craniotomy defect. There is cerebral volume loss for age, with resultant ventricular and sulcal prominence. There are periventricular and deep white matter chronic small vessel ischemic changes. There is intracranial internal carotid artery atherosclerosis. Skull and face: Calvarium and visualized facial bones appear intact, without suspicious lesions. Sinuses: Visualized sinuses and mastoids are clear. IMPRESSION: 1. No acute intracranial abnormality or interval change. 2. Right frontal encephalomalacia is subjacent to craniotomy defect. 3. Cerebral atrophy, central greater than peripheral. Chronic deep white matter ischemic changes. Report called to Dr. Parada in the ED Dictated by: Lev Parson M.D. on 03/18/2017 at 16:41 Approved by: Lev Parson M.D. on 03/18/2017 at 16:43 PROCEDURE: X-RAY CHEST ONE VIEW, PORTABLE ([id number]) INDICATIONS: SHORT OF BREATH TECHNIQUE: One view of the chest was acquired. COMPARISON: None. FINDINGS: Surgical changes and devices: Median sternotomy. Dual-lead left-sided pacemaker appears in place and intact.. Lungs and pleura: No pleural effusions or pneumothorax. Lungs are clear. Mediastinum: Mediastinal contours appear normal. Heart size is normal. Bones and chest wall: No suspicious bony lesions. Overlying soft tissues appear unremarkable. IMPRESSION: No acute cardiopulmonary abnormality. Permanent pacemaker. Dictated by: Lev Parson M.D. on 03/18/2017 at 16:11 Approved by: Lev Parson M.D. on 03/18/2017 at 16:12 12-lead ECG EKG as noted in history of present illness Assessment & Plan # Syncopal episode, acute, present on admission and resolved. The specific etiology is unclear. There is some concern or question about paroxysmal A. fib with periods of RVR. -May be related to atrial fibrillation, has bursts of RVR on pacer interrogation. -Negative head CT, can't have an MRI due to pacemaker. -Place on telemetry, no new problems seen ovr night. -Add Plavix to ASA regimen -OT, PT, speech therapy consultations in a.m. This is a somewhat subacute issue with 5 falls over 5 months. It is all likely that he may improve with intensive physical therapy if he were willing to consider a rehabilitation stay. # Paroxysmal atrial fibrillation with rapid ventricular response, tachycardia not present on admission although controlled rate A. fib is present on admission -Place on telemetry and follow -May be cause of his syncopal episodes - likely exacerbated by current infection The plan is to optimize rate control by increasing metoprolol 200 twice a day. #. Urine tract infection with leukocytosis, present on admission and improving - continue ceftriaxone IV, follow cultures. Initial cultures indicate a streptococcal species, 100,000 CFU. Continue to follow cultures. #. Acute kidney injury, acute, present on admission and improving. -Give IV fluid hydration -Renal ultrasound unremarkable - cr trended down , component of CKD cannot be ruled out #. Thrombocytopenia, subacute, present on admission and stable -. CBC today and follow. #. Leukocytosis, present on admission and active. This may be partially related to a urinary tract infection. There is also concern regarding a possible hematologic issue. The patient has a heme on appointment scheduled for the next week. The possible concern could be undiagnosed CLL. # DVT prophylaxis -We will go ahead and use SCDs but not put on subcutaneous anticoagulant given relatively low platelet count #CODE STATUS -Patient is full code Possible discharge right ear Friday depending on clinical course and discharge planning which may involve home health resume eating versus a [facility] facility rehabilitation stay. The patient continues to be reluctant to consider this. Recently has moved to a new house which is not equipped with disability mitigation measures including a ramp or bars. PT and OT both recommend SNF for a transitional rehab. He is open to going to SNF today. VTE Prophylaxis: Sub-Q Heparin (Unfractionated), SCDs Resuscitation Status: CPR: Attempt Resuscitation Time spent 35 mins Jared Hernandez MD Mar 22, 2017 12:50
--- NOTE | 2017-03-22 14:56 | NUR ---
Social Work-readiness for discharge/multidisciplinary rounds: Data:EMR reviewed. Pt is on day 4 of hospitalization for syncope per H&P. Pt is not medically stable anticipate tomorrow. PT/OT recommending SNF. MD order received. SW followed up with pt and at bedside, SW role explained. states she was present during PT session today and feels like pt is too weak to return home with her. SNF choice list provided. would like a referral to [facility], [facility], and [facility]. to do further research this evening and SW to check in with tomorrow regarding choice. [facility] in [place] [facility] to [facility], [facility], and [facility] and [facility] and facesheet faxed. Paperwork and [facility] in the chart. SW will continue to follow. Assessment:pt who would benefit from SNF. Plan:Referrals made to [facility], [facility], and [facility], SHANIKA to follow up tomorrow regarding first choice. Paperwork and [facility] in the chart. SW will continue to follow. LORENE Acosta
--- NOTE | 2017-03-22 14:57 | NUR ---
SNF choice list provided. LORENE Acosta
--- NOTE | 2017-03-22 15:20 | NUR ---
[facility] can accept with Dr. Diaz to follow. LORENE Acosta
--- NOTE | 2017-03-22 16:41 | NUR ---
Shift Report: Patient was reluctant at beginning of shift to go anywhere besides home after hospital stay. After discussion with PT, , MD and social work, plan put in place for rehab care prior to home. No issues with swallowing or food today. Does need significant help OOB and tires easily. Should go to placement tomorrow.
[2017-03-22] MEDS: Cholestyramine Resin Powder 4 Gm Packet PO SCH (17:22)
[2017-03-23] VITALS (7 sets, daily range): BP systolic 97–116; BP diastolic 61–76; PULSE 77–117; RESP 18–20; O2SAT 94–99
--- NOTE | 2017-03-23 06:27 | NUR ---
uneventful night Pt slept most of the night. denies pain or discomfort. Tele Afib Vpaced in the 90s. able to make needs known. hourly rounding done.
[2017-03-23 06:47] LABS: Mean Corpuscular Hemoglobin 30.3 pg (27.0-35.0); Mean Corpuscular Volume 92.3 fL (81-100); Platelet Count 95 bil/L (150-400)
[2017-03-23] MEDS: Insulin LISPRO 300 Unit/3 mL Inj SUBQ SCH ×4 (07:41→20:39)
[2017-03-23 07:57] LABS: BASOPHILS % (AUTO) 0 % (0-3); EOSINOPHILS % (AUTO) 0 % (0-5); MONOCYTES % (AUTO) 0 % (4-12); NEUTROPHILS % (AUTO) 15 % (40-74)
[2017-03-23] MEDS: Heparin 5,000 Unit/mL Inj SUBQ SCH ×2 (08:02→20:00)
[2017-03-23] MEDS: cefTRIAXone Inj 1,000 MG in Dextrose 5% Minibag Plus 50 ML IV SCH (08:03)
--- NOTE | 2017-03-23 10:13 | PCM.PNMED ---
Subjective Date of Service Mar 23, 2017 Subjective Patient seen and examined. complained of some confusion last night and morning. Patient alert and oriented X 3 for me. Vitals noted. Exam Vital Signs Vital Sign - Last Date Time Temp Pulse Resp B/P Pulse Ox O2 Delivery O2 Flow Rate FiO2 03/23/17 09:01 36.5 94 18 116/76 94 Room Air Intake and Output 03/22/17 03/22/17 03/23/17 Cumulative From/Thru 15:00 23:00 07:00 03/18/17 15:08 - 03/23/17 06:22 Intake Total 895 ml 150 ml 8248 ml Output Total 625 ml 200 ml 4445 ml Balance 270 ml -50 ml 3803 ml Intake Oral 895 ml 150 ml 4000 ml IV Total 4248 ml Output Urine Total 625 ml 200 ml 4445 ml # Voids 2 7 # Bowel Movements 1 3 Exam Head: Normocephalic atraumatic head does have right facial droop noted Chest: Clear to auscultation Cor: Tachycardic irregularly irregular S1-S2 Abdomen: Soft nontender bowel sounds present Extremities exams shows trace bilateral pedal edema with chronic venous stasis changes Neuro: He is alert and oriented 3, does have right facial droop with some drift of his right arm and also does have some dysarthria according to my exam Psych: Mood and affect are appropriate Lab and Diagnostics Result Diagram: 03/23/17 0620 03/22/17 0610 X-Rays, CTs and MRIs PROCEDURE: CT BRAIN WITHOUT CONTRAST ([id number]) INDICATIONS: trauma TECHNIQUE: Noncontrast 4.5 mm thick angled axial sections acquired from the foramen magnum to the vertex, with coronal reformats. COMPARISON: CT brain 07/12/2016, 11/24/2014; MRI brain 11/17/2014 FINDINGS: Image quality: Excellent. CSF spaces: Basal cisterns are patent. No extra-axial fluid collections. The ventricles are enlarged and symmetric in size and shape. Brain: No intracranial bleeds or masses. Right frontal encephalomalacia subjacent to remote craniotomy defect. There is cerebral volume loss for age, with resultant ventricular and sulcal prominence. There are periventricular and deep white matter chronic small vessel ischemic changes. There is intracranial internal carotid artery atherosclerosis. Skull and face: Calvarium and visualized facial bones appear intact, without suspicious lesions. Sinuses: Visualized sinuses and mastoids are clear. IMPRESSION: 1. No acute intracranial abnormality or interval change. 2. Right frontal encephalomalacia is subjacent to craniotomy defect. 3. Cerebral atrophy, central greater than peripheral. Chronic deep white matter ischemic changes. Report called to Dr. Parada in the ED Dictated by: Lev Parson M.D. on 03/18/2017 at 16:41 Approved by: Lev Parson M.D. on 03/18/2017 at 16:43 PROCEDURE: X-RAY CHEST ONE VIEW, PORTABLE ([id number]) INDICATIONS: SHORT OF BREATH TECHNIQUE: One view of the chest was acquired. COMPARISON: None. FINDINGS: Surgical changes and devices: Median sternotomy. Dual-lead left-sided pacemaker appears in place and intact.. Lungs and pleura: No pleural effusions or pneumothorax. Lungs are clear. Mediastinum: Mediastinal contours appear normal. Heart size is normal. Bones and chest wall: No suspicious bony lesions. Overlying soft tissues appear unremarkable. IMPRESSION: No acute cardiopulmonary abnormality. Permanent pacemaker. Dictated by: Lev Parson M.D. on 03/18/2017 at 16:11 Approved by: Lev Parson M.D. on 03/18/2017 at 16:12 12-lead ECG EKG as noted in history of present illness Assessment & Plan # Syncopal episode, acute, present on admission and resolved. The specific etiology is unclear. There is some concern or question about paroxysmal A. fib with periods of RVR. -May be related to atrial fibrillation, has bursts of RVR on pacer interrogation. -Negative head CT, can't have an MRI due to pacemaker. -Place on telemetry, no new problems seen -Add Plavix to ASA regimen -OT, PT, speech therapy consultations in a.m. This is a somewhat subacute issue with 5 falls over 5 months. It is all likely that he may improve with intensive physical therapy if he were willing to consider a rehabilitation stay. # Paroxysmal atrial fibrillation with rapid ventricular response, tachycardia not present on admission although controlled rate A. fib is present on admission -Place on telemetry and follow -May be cause of his syncopal episodes - likely exacerbated by current infection The plan is to optimize rate control by increasing metoprolol 200 twice a day. #. Urine tract infection with leukocytosis, present on admission and improving - continue ceftriaxone IV, follow cultures. Initial cultures indicate a streptococcal species, 100,000 CFU. Continue to follow cultures. Had to be reincubated due to no growth. #. Acute kidney injury, acute, present on admission and improving. -Give IV fluid hydration -Renal ultrasound unremarkable - cr trended down , component of CKD cannot be ruled out #. Thrombocytopenia, subacute, present on admission and stable -. PLT stable #. Leukocytosis, present on admission and active. This may be partially related to a urinary tract infection. There is also concern regarding a possible hematologic issue. The patient has a heme on appointment scheduled for the next week. The possible concern could be undiagnosed CLL. # DVT prophylaxis -We will go ahead and use SCDs but not put on subcutaneous anticoagulant given relatively low platelet count #CODE STATUS -Patient is full code PT and OT both recommend SNF for a transitional rehab. He is open to going to SNF. 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 VTE Prophylaxis: Sub-Q Heparin (Unfractionated), SCDs Resuscitation Status: CPR: Attempt Resuscitation Time spent 35 mins Jared Hernandez MD Mar 23, 2017 10:13
--- NOTE | 2017-03-23 14:14 | NUR ---
Social Work: Readiness For Discharge Data & Assessment: EMR reviewed. Patient is on day 5 of hospitalization for syncope per H&P. Patient was discussed in morning rounds and date of discharge is pending cultures. states that patient will likely be medically ready for discharge tomorrow. SW received a call from patient's spouse regarding choice of SNF. informed SW that patient has been to [facility] in the past and has requested that patient be considered there. Spouse states that she would prefer for patient to have a private room and wanted to know if private rooms would be available at any of the SNFs chosen. SW called each SNF to confirm private room availability. SW was able to confirm that [facility], [facility] and [facility] have private rooms available. SW made two attempts to contact [facility] and was unable to speak with anyone. SW updated spouse of SNFs that had private rooms. Spouse informed SW that patient has been to [facility] in the past however, the building is old and she would rather patient not discharge there. Spouse informed SW that she would discuss options with her spouse and give SW a call back. SW will continue to follow. Plan: Patient will discharge to [facility] vs [facility] vs [facility] vs [facility] when medically stable. SW is awaiting a call back from spouse regarding SNF choice. SW will continue to follow. LORENE Marroquin Addendum: 03/23/17 at 1503 by RAIN FARRELL SW received a call back from spouse regarding SNF choice. Patient and spouse have selected [facility]. SHANIKA called [facility] and spoke with Pavan. SHANIKA informed Pavan that patient has chosen [facility] and that patient will be ready for discharge tomorrow 03/24/17. SHANIKA will continue to follow. LORENE Marroquin
[2017-03-23] MEDS: Cholestyramine Resin Powder 4 Gm Packet PO SCH (16:23)
--- NOTE | 2017-03-23 17:44 | NUR ---
Activity/blood sugars Pt has been amb to BR with FWW, noticeably weak with activity. Denies any SOB with activity. He has been sitting up in the chair for all meals. Both pt and pt's report that he appears marginally stronger today. Blood sugars remained below 100 throughout this shift. Bed in lowest, locked position and call light in reach.
[2017-03-24 00:56] VITALS: BP 101/67; PULSE 68; RESP 19; O2SAT 98
[2017-03-24 04:46] VITALS: BP 123/76; PULSE 88; RESP 20; O2SAT 97
[2017-03-24 06:40] LABS: Mean Corpuscular Hemoglobin 30.8 pg (27.0-35.0); Platelet Count 106 bil/L (150-400)
--- NOTE | 2017-03-24 07:35 | NUR ---
activity Pt slept most of the night. ambulated to the BR with 1PA with FWW. Pt is reminded not to shuffle and pickle sorter his feet when walking. had a medium BM and c/o being constipated. Refused med when offered. Pt to order fruits for breakfast for this usually helps him with his constipation. Bed alarm on for safety.
[2017-03-24] MEDS: Insulin LISPRO 300 Unit/3 mL Inj SUBQ SCH ×2 (07:47→11:41)
--- NOTE | 2017-03-24 07:47 | PCM.PNMED ---
Subjective Date of Service Mar 24, 2017 Subjective Patient seen and examined. No complaints. Vitals stable. Exam Vital Signs Vital Sign - Last Date Time Temp Pulse Resp B/P Pulse Ox O2 Delivery O2 Flow Rate FiO2 03/24/17 04:46 36.7 88 20 123/76 97 Room Air Intake and Output 03/23/17 03/23/17 03/24/17 Cumulative From/Thru 15:00 23:00 07:00 03/18/17 15:08 - 03/24/17 04:46 Intake Total 80 ml 810 ml 9138 ml Output Total 475 ml 4920 ml Balance 80 ml 335 ml 4218 ml Intake Oral 810 ml 4810 ml IV Total 80 ml 4328 ml Output Urine Total 475 ml 4920 ml # Voids 7 # Bowel Movements 1 4 Exam Head: Normocephalic atraumatic head does have right facial droop noted Chest: Clear to auscultation Cor: Tachycardic irregularly irregular S1-S2 Abdomen: Soft nontender bowel sounds present Extremities exams shows trace bilateral pedal edema with chronic venous stasis changes Neuro: He is alert and oriented 3, does have right facial droop with some drift of his right arm and also does have some dysarthria according to my exam Psych: Mood and affect are appropriate Lab and Diagnostics Result Diagram: 03/23/17 0620 03/22/17 0610 X-Rays, CTs and MRIs PROCEDURE: CT BRAIN WITHOUT CONTRAST ([id number]) INDICATIONS: trauma TECHNIQUE: Noncontrast 4.5 mm thick angled axial sections acquired from the foramen magnum to the vertex, with coronal reformats. COMPARISON: CT brain 07/12/2016, 11/24/2014; MRI brain 11/17/2014 FINDINGS: Image quality: Excellent. CSF spaces: Basal cisterns are patent. No extra-axial fluid collections. The ventricles are enlarged and symmetric in size and shape. Brain: No intracranial bleeds or masses. Right frontal encephalomalacia subjacent to remote craniotomy defect. There is cerebral volume loss for age, with resultant ventricular and sulcal prominence. There are periventricular and deep white matter chronic small vessel ischemic changes. There is intracranial internal carotid artery atherosclerosis. Skull and face: Calvarium and visualized facial bones appear intact, without suspicious lesions. Sinuses: Visualized sinuses and mastoids are clear. IMPRESSION: 1. No acute intracranial abnormality or interval change. 2. Right frontal encephalomalacia is subjacent to craniotomy defect. 3. Cerebral atrophy, central greater than peripheral. Chronic deep white matter ischemic changes. Report called to Dr. Parada in the ED Dictated by: Lev Parson M.D. on 03/18/2017 at 16:41 Approved by: Lev Parson M.D. on 03/18/2017 at 16:43 PROCEDURE: X-RAY CHEST ONE VIEW, PORTABLE ([id number]) INDICATIONS: SHORT OF BREATH TECHNIQUE: One view of the chest was acquired. COMPARISON: None. FINDINGS: Surgical changes and devices: Median sternotomy. Dual-lead left-sided pacemaker appears in place and intact.. Lungs and pleura: No pleural effusions or pneumothorax. Lungs are clear. Mediastinum: Mediastinal contours appear normal. Heart size is normal. Bones and chest wall: No suspicious bony lesions. Overlying soft tissues appear unremarkable. IMPRESSION: No acute cardiopulmonary abnormality. Permanent pacemaker. Dictated by: Lev Parson M.D. on 03/18/2017 at 16:11 Approved by: Lev Parson M.D. on 03/18/2017 at 16:12 12-lead ECG EKG as noted in history of present illness Assessment & Plan # Syncopal episode, acute, present on admission and resolved. The specific etiology is unclear. There is some concern or question about paroxysmal A. fib with periods of RVR. -May be related to atrial fibrillation, has bursts of RVR on pacer interrogation. -Negative head CT, can't have an MRI due to pacemaker. -Place on telemetry, no new problems seen -on Plavix with ASA -OT, PT, speech therapy on board This is a somewhat subacute issue with 5 falls over 5 months. It is all likely that he may improve with intensive physical therapy if he were willing to consider a rehabilitation stay. # Paroxysmal atrial fibrillation with rapid ventricular response, tachycardia not present on admission although controlled rate A. fib is present on admission -Place on telemetry and follow -May be cause of his syncopal episodes - likely exacerbated by current infection Optimized rate control by increasing metoprolol 100 twice a day. #. Urine tract infection with leukocytosis, present on admission and improving - continue ceftriaxone IV, follow cultures. Initial cultures indicate a streptococcal species, 100,000 CFU. Continue to follow cultures. Had to be reincubated due to no growth. #. Acute kidney injury, acute, present on admission and improving. -Give IV fluid hydration -Renal ultrasound unremarkable - cr trended down , component of CKD cannot be ruled out #. Thrombocytopenia, subacute, present on admission and stable -. PLT stable #. Leukocytosis, present on admission and active. This may be partially related to a urinary tract infection. There is also concern regarding a possible hematologic issue. The patient has a heme on appointment scheduled for the next week. The possible concern could be undiagnosed CLL. # DVT prophylaxis -We will go ahead and use SCDs but not put on subcutaneous anticoagulant given relatively low platelet count #CODE STATUS -Patient is full code PT and OT both recommend SNF for a transitional rehab. He is open to going to SNF. 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 Pain Evaluation: Adequate Pain Control VTE Prophylaxis: Sub-Q Heparin (Unfractionated), SCDs Resuscitation Status: CPR: Attempt Resuscitation Time spent 35 mins Jared Hernandez MD Mar 24, 2017 07:47
[2017-03-24] MEDS: cefTRIAXone Inj 1,000 MG in Dextrose 5% Minibag Plus 50 ML IV SCH (08:27)
[2017-03-24 08:37] VITALS: BP 132/81; PULSE 101; RESP 20; O2SAT 95
[2017-03-24 08:37] LABS: BASOPHILS % (AUTO) 0 % (0-3); EOSINOPHILS % (AUTO) 1 % (0-5); MONOCYTES % (AUTO) 2 % (4-12); NEUTROPHILS % (AUTO) 27 % (40-74)
[2017-03-24] MEDS: Heparin 5,000 Unit/mL Inj SUBQ SCH (09:02)
[2017-03-24 09:16] VITALS: PULSE 104
[2017-03-24] MEDS ORDERED: METO100T3 PO (10:43)
[2017-03-24] MEDS ORDERED: CLOP75TA3 PO (10:47)
--- NOTE | 2017-03-24 10:49 | PCM.DIMED ---
Discharge Instructions Date of Service Mar 24, 2017 Dates of Hospitalization Mar 18, 2017 at 18:25 Discharge Diagnosis Discharge Diagnosis Syncope, UTI, Afib Diet Discharge Diet: Heart Healthy Activity Discharge Activity: Limited until seen by PCP Call your provider Call your provider for: Fever or Chills, Bleeding, Chest pain Patient Instructions Follow-up plan Follow up with Hem/Onc to evaluate leukocytosis. Follow-up with PCP in: 1 week Jared Hernandez MD Mar 24, 2017 10:42
--- NOTE | 2017-03-24 10:53 | PCM.DC.MED ---
Discharge Summary Date of Service Mar 24, 2017 Dates of Hospitalization Date of Hospital Admission Mar 18, 2017 at 18:25 Date of Discharge: Mar 24, 2017 Providers: Admitting Physician: Darlin Ballard MD Primary Care Physician: Hunter Carvalho MD Attending Physician: Jared Blake MD Diagnosis at Time of Discharge Diagnosis at Time of Discharge Syncope, UTI, Afib Procedures XRay, CTs & MRIs PROCEDURE: CT BRAIN WITHOUT CONTRAST ([id number]) INDICATIONS: trauma TECHNIQUE: Noncontrast 4.5 mm thick angled axial sections acquired from the foramen magnum to the vertex, with coronal reformats. COMPARISON: CT brain 07/12/2016, 11/24/2014; MRI brain 11/17/2014 FINDINGS: Image quality: Excellent. CSF spaces: Basal cisterns are patent. No extra-axial fluid collections. The ventricles are enlarged and symmetric in size and shape. Brain: No intracranial bleeds or masses. Right frontal encephalomalacia subjacent to remote craniotomy defect. There is cerebral volume loss for age, with resultant ventricular and sulcal prominence. There are periventricular and deep white matter chronic small vessel ischemic changes. There is intracranial internal carotid artery atherosclerosis. Skull and face: Calvarium and visualized facial bones appear intact, without suspicious lesions. Sinuses: Visualized sinuses and mastoids are clear. IMPRESSION: 1. No acute intracranial abnormality or interval change. 2. Right frontal encephalomalacia is subjacent to craniotomy defect. 3. Cerebral atrophy, central greater than peripheral. Chronic deep white matter ischemic changes. Report called to Dr. Parada in the ED Dictated by: Lev Parson M.D. on 03/18/2017 at 16:41 Approved by: Lev Parson M.D. on 03/18/2017 at 16:43 PROCEDURE: X-RAY CHEST ONE VIEW, PORTABLE ([id number]) INDICATIONS: SHORT OF BREATH TECHNIQUE: One view of the chest was acquired. COMPARISON: None. FINDINGS: Surgical changes and devices: Median sternotomy. Dual-lead left-sided pacemaker appears in place and intact.. Lungs and pleura: No pleural effusions or pneumothorax. Lungs are clear. Mediastinum: Mediastinal contours appear normal. Heart size is normal. Bones and chest wall: No suspicious bony lesions. Overlying soft tissues appear unremarkable. IMPRESSION: No acute cardiopulmonary abnormality. Permanent pacemaker. Dictated by: Lev Parson M.D. on 03/18/2017 at 16:11 Approved by: Lev Parson M.D. on 03/18/2017 at 16:12 ECG 12 Lead EKG as noted in history of present illness Brief History A 76-year-old male with a history of type II diabetes hypertension peripheral neuropathy who has a history of atrial fibrillation who is not on anticoagulation due to his falls. There is some question whether these are actual syncopal episodes per the . Patient had one again earlier today. He also with this one was noted to have right sided facial droop was just still persistent and noted some dysarthria which she notes has improved. He weighs in the emergency room included interrogation of his pacemaker which did show bursts of RVR A. fib up to close to 200 and with spontaneous resolution. He also was found to have acute kidney injury with BUN of 35 creatinine of 2.01. He also was found to have a white count of 27.6 but does have past history of it being elevated over the past year. Also was found to have low platelets today is 125 troponin is borderline elevated at 0.017 although keep in mind that patient does have acute kidney injury. CT of head without contrast reveals no acute intracranial abnormalities. Right frontal encephalomalacia is subjacent to craniotomy defect. Cerebral atrophy central greater than peripheral. Chronic deep white matter ischemic changes noted. His A. fib at a rate of [address] pressure and anterior septal leads. The elevations no acute T wave abnormalities chest x-ray reveals no acute cardiopulmonary abnormalities. Hospital Course # Syncopal episode, acute, present on admission and resolved. The specific etiology is unclear. There is some concern or question about paroxysmal A. fib with periods of RVR. -May be related to atrial fibrillation, has bursts of RVR on pacer interrogation. -Negative head CT, can't have an MRI due to pacemaker. -Place on telemetry, no new problems seen -started on Plavix with ASA -OT, PT, speech therapy on board This is a somewhat subacute issue with 5 falls over 5 months. It is all likely that he may improve with intensive physical therapy # Paroxysmal atrial fibrillation with rapid ventricular response, tachycardia not present on admission although controlled rate A. fib is present on admission -May be cause of his syncopal episodes - likely exacerbated by current infection - Optimized rate control by increasing metoprolol 100 twice a day. #. Urine tract infection with leukocytosis, present on admission - treated with Ceftriaxone X 5 days iv abx #. Acute kidney injury, acute, present on admission and improving. -Give IV fluid hydration -Renal ultrasound unremarkable - cr trended down , component of CKD cannot be ruled out #. Thrombocytopenia, subacute, present on admission and stable -. PLT stable #. Leukocytosis, present on admission and active. This may be partially related to a urinary tract infection. There is also concern regarding a possible hematologic issue. The patient has a heme on appointment scheduled for the next week. The possible concern could be undiagnosed CLL. Exam Vital Signs (Last) Date Time Temp Pulse Resp B/P Pulse Ox O2 Delivery O2 Flow Rate FiO2 03/24/17 09:16 104 03/24/17 08:37 37.0 20 132/81 95 Room Air Test 03/18/17 16:15 03/18/17 17:48 03/18/17 18:24 03/18/17 18:25 Prothrombin Time 11.4sec (8.1-12.5) Prothromb Time International Ratio 1.06ratio Magnesium Level 2.4mg/dL (1.6-2.6) Pro-B-Type Natriuretic Peptide 4478pg/mL (0-486) Urine Color Yellow (YELLOW) Urine Appearance Hazy (CLEAR,HAZY) Urine pH 5.5 (5.0-8.0) Urine Specific [place] 1.030 (1.003-1.035) Urine Protein Tracemg/dL (NEG,TRACE) Urine Glucose (UA) Negativemg/dL (NEGATIVE) Urine Ketones Negativemg/dL (NEGATIVE) Urine Occult Blood Large (NEGATIVE) Urine Nitrite Negative (NEGATIVE) Urine Bilirubin Negative (NEGATIVE) Urine Urobilinogen Normalmg/dL (NORMAL) Urine Leukocyte Esterase Moderate (NEGATIVE) Urine RBC 11-50/hpf (0-2) Urine WBC 6-10/hpf (0-5) Urine Epithelial Cells None/hpf (NONE-MOD) Urine Crystals None seen (NONE SEEN) Urine Bacteria Many/hpf (NONE-FEW) Urine Hyaline Casts None/lpf (NONE) Urine Granular Casts None seen (NONE SEEN) Urine Waxy Casts None seen (NONE SEEN) Urine Red Blood Cell Casts None seen (NONE SEEN) Urine White Blood Cell Casts None seen (NONE SEEN) Urine Mucus None seen (None Seen) Urine Trichomonas None seen (NONE SEEN) Urine Yeast None (NONE SEEN) Urinalysis Comment None Urine Culture Reflexed Indicated Hemoglobin A1c 5.7% (4.8-5.6) Triglycerides Level 166mg/dL (0-149) Cholesterol Level 128mg/dL (100-199) LDL Cholesterol, Calculated 61.800mg/dL (0-99) VLDL Cholesterol 33.200mg/dL HDL Cholesterol 33mg/dL (>39) Cholesterol/HDL Ratio 3.88 (0.0-4.4) Test 03/19/17 05:50 03/19/17 18:34 03/22/17 06:10 03/24/17 06:20 Total Bilirubin 0.8mg/dL (0.0-1.2) Aspartate Amino Transf (AST/SGOT) 21U/L (0-50) Alanine Aminotransferase (ALT/SGPT) 15U/L (0-44) Alkaline Phosphatase 45U/L (25-160) Troponin T 0.024ug/L (0.0-0.011) Total Protein 5.5g/dL (6.0-8.5) Albumin 3.4g/dL (2.9-4.4) Globulin (PEP) 2.1g/dL (2.2-3.9) Albumin/Globulin Ratio 1.6 (0.7-1.7) Pgrtr-0-Xdafyumvg 0.2g/dL (0.0-0.4) Ebbgx-3-Mztvszvyu 0.6g/dL (0.4-1.0) Beta Globulins 0.8g/dL (0.7-1.3) Gamma Globulins 0.6g/dL (0.4-1.8) Serum Monoclonal Protein Not observedg/dL Protein Electrophoresis Comment Comment (.) Protein Electrophoresis Interpret Comment (.) Sodium Level 140mEq/L (134-144) Potassium Level 4.5mEq/L (3.5-5.2) Chloride Level 105mEq/L (97-108) Carbon Dioxide Level 20mmol/L (18-29) Blood Urea Nitrogen 20mg/dL (8-27) Creatinine 1.54mg/dL (0.76-1.27) Estimat Glomerular Filtration Rate 47mL/min (>59) Glucose Level 105mg/dL (60-99) Calcium Level 8.3mg/dL (8.5-10.1) White Blood Count 25.4th/mm3 (3.8-10.1) Red Blood Count 4.42mil/mm3 (4.40-5.80) Hemoglobin 13.6g/dL (13.8-17.2) Hematocrit 40.2% (41.0-50.0) Mean Corpuscular Volume 91.0fL (81-100) Mean Corpuscular Hemoglobin 30.8pg (27.0-35.0) Mean Corpuscular Hemoglobin Concent 33.8% (32.0-37.0) Red Cell Distribution Width 13.5% (12.3-15.4) Platelet Count 106bil/L (150-400) Neutrophils (%) (Auto) 27% (40-74) Lymphocytes (%) (Auto) 70% (14-46) Monocytes (%) (Auto) 2% (4-12) Eosinophils (%) (Auto) 1% (0-5) Basophils (%) (Auto) 0% (0-3) Hematology Comments Wbc Discharge Medications Discharge Medications Alpha Lipoic Acid (Alpha Lipoic Acid) 100 Mg Capsule 300 MG PO HS (Reported) Aspirin (Aspirin) 325 Mg Tablet 325 MG PO HS (Reported) Cholecalciferol (Vitamin D3) (Vitamin D3) 1,000 Unit Tab.chew 1,000 UNIT PO QAM (Reported) Cholestyramine/Aspartame (Cholestyramine Light Packet) 4 Gm Powd.pack 2 GM PO DAILYWD (Reported) TAKES AT 4 PM Clopidogrel Bisulfate (Plavix) 75 Mg Tablet 75 MG PO DAILY Prescribed by: JARED BLAKE MD Cyanocobalamin (Vitamin B12) 500 Mcg Tablet 500 MCG PO QAM (Reported) Finasteride (Finasteride) 5 Mg Tablet 5 MG PO HS (Reported) Flecainide Acetate (Flecainide Acetate) 100 Mg Tablet 100 MG PO BID (Reported) Metoprolol Tartrate (Metoprolol Tartrate) 50 Mg Tablet 50 MG PO BID (Reported) Metoprolol Tartrate (Metoprolol Tartrate) 100 Mg Tablet 100 MG PO BID Prescribed by: JARED BLAKE MD Pravastatin (Pravastatin) 20 Mg Tablet 20 MG PO HS (Reported) Tamsulosin (Flomax) 0.4 Mg Capsule 0.4 MG PO BID (Reported) As needed Ibuprofen (Ibuprofen) 200 Mg Capsule 200-400 MG PO BID PRN PRN For Pain ( Reported) Polyethylene Glycol 3350 (Miralax) 17 Gm Powd.pack 17 GM PO DAILY PRN PRN For Constipation (Reported) Followup Plan Discharge Diet: Heart Healthy Discharge Activity: Limited until seen by PCP Follow-up with PCP in: 1 week Jared Blake MD Mar 24, 2017 10:53 Jared Blake MD Mar 24, 2017 10:53
[2017-03-24 13:04] VITALS: BP 117/65; PULSE 95; RESP 21; O2SAT 98
--- NOTE | 2017-03-24 14:11 | NUR ---
Social Work: Discharge Data & Assessment: EMR reviewed. Patient is on day 6 of hospitalization for syncope & AFIB with RVR per H&P. Patient was discussed in morning rounds. Patient has been deemed medically stable for discharge today per MD. Patient has selected [facility] for rehab. Patient will discharge today to [facility]. Transportation has been arranged by [facility] and a pickup time has been confirmed for 1530. SW has informed patient and who is at bedside of the transportation details. Patient and are in agreement. SHANIKA has also informed primary RN of transport time. Patient has no additional needs at this time. Plan: Patient will discharge to [facility] today. Wheelchair transportation has been arranged by [facility] and pickup has been confirmed for 1530. Patient has no additional needs at this time. LORENE Marroquin
[2017-03-24] MEDS: Cholestyramine Resin Powder 4 Gm Packet PO SCH (15:16)
--- NOTE | 2017-03-24 16:04 | NUR ---
DISCHARGE Pt discharged to [facility] this afternoon at 1600, off unit in w/c transportation, accompanied by . Report given to ROMI at [facility] at 1520 prior to transfer. All belongings and orders sent with pt. Vital signs stable, pt A&Ox4, denies any pain and in no apparent distress. IV dc'd intact.
== END 2017-03-24 16:32 | DRG 309 ==
LOC: SED 14:59 → EDBD 14:59 → MPC 18:25
PROVIDERS: ADMIT Specialist; ATTEND Internal Medicine
PROC: 4B02XSZ Measurement of Cardiac Pacemaker, External Approach (ICD-10-PCS; principal; 2017-03-18)
DX: I48.91 Unspecified atrial fibrillation (principal); N17.9 Acute kidney failure, unspecified; N39.0 Urinary tract infection, site not specified; R55 Syncope and collapse; Z95.0 Presence of cardiac pacemaker; Z79.82 Long term (current) use of aspirin; Z87.891 Personal history of nicotine dependence; D72.829 Elevated white blood cell count, unspecified; D69.6 Thrombocytopenia, unspecified; R29.6 Repeated falls

== ENCOUNTER 2017-03-30 15:57 | Observation (INO) | payer MEDICARE ==
[~2017-03-30] VITALS: Ht 188 cm; Wt 125.3 kg
[~2017-03-30 15:57] MED LIST changes: +CLOP75TA3 PO; +FLEC100T2 PO; +IBUP200C PO; +METO50TA3 PO; +POLY17PO6 PO
[2017-03-30 15:59] VITALS: BP 115/67; PULSE 70; RESP 16; O2SAT 96
--- NOTE | 2017-03-30 16:05 | ED.REPORT ---
HPI-General Illness Date of Service Mar 30, 2017 ED Provider: Ian Paiz MD The patient is a 76 year old male with a hx of HTN, atrial fibrillation (not on anticoagulation), and recurrent UTI presenting to the ED with his via EMS from [facility] complaining of progressively worsening hematuria onset 3 days ago. He describes it as "like pure blood". He has been off the Plavix for the past 3 days without relief for his symptoms. He admits to urine incontinence, otherwise denies any associated symptoms at this time. The patient was recently admitted for a UTI associated with hematuria and was place in [facility]. His PCP, Dr. Eisenberg, instructed the patient to stop taking Plavix. He denies abdominal pain, testicular pain, chest pain, SOB, fever, chills, headache, nausea, vomiting, visual disturbances, or flank pain. He denies taking Warfarin or Coumadin due to frequent GLF's. His last GLF was 1 week ago. Nursing Notes Stated Complaint: HEMATURIA Chief Complaint: Male Abdominal Pain Nursing Notes Reviewed: Yes Allergies: Coded Allergies: macadamia nut oil (Verified Allergy, Unknown, nausea, chest pain, 03/18/17) Scheduled Alpha Lipoic Acid (Alpha Lipoic Acid) 100 Mg Capsule 300 MG PO HS Aspirin (Aspirin) 325 Mg Tablet 325 MG PO HS Cholecalciferol (Vitamin D3) (Vitamin D3) 1,000 Unit Tab.chew 1,000 UNIT PO QAM Cholestyramine/Aspartame (Cholestyramine Light Packet) 4 Gm Powd.pack 2 GM PO DAILYWD TAKES AT 4 PM Clopidogrel Bisulfate (Plavix) 75 Mg Tablet 75 MG PO DAILY Cyanocobalamin (Vitamin B12) 500 Mcg Tablet 500 MCG PO QAM Finasteride (Finasteride) 5 Mg Tablet 5 MG PO HS Flecainide Acetate (Flecainide Acetate) 100 Mg Tablet 100 MG PO BID Metoprolol Tartrate (Metoprolol Tartrate) 100 Mg Tablet 100 MG PO BID Pravastatin (Pravastatin) 20 Mg Tablet 20 MG PO HS Tamsulosin (Flomax) 0.4 Mg Capsule 0.4 MG PO BID Scheduled PRN Polyethylene Glycol 3350 (Miralax) 17 Gm Powd.pack 17 GM PO DAILY PRN PRN For Constipation General Time Seen by MD: 16:04 Chief Complaint Other (hematuria) Hx Obtained From: Patient, Spouse () Arrived By: Ambulance Sudden in Onset?: Yes Onset Occurred: 3 days ago Symptom Duration: Since onset Associated with: Reports: Weak extremity (leg weakness), Denies: Abdominal pain, Chest pain, Fever, Headache, Shortness of breath, Vomiting Pertinent Negative: Pt denies other symptoms Recent Healthcare: Recent doctor visit Similar Sx Previous: No Past Medical History Past Medical History 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 Colloid cyst s/p resection Reports: Cancer, Diabetes mellitus, Hypertension Past Surgical History Total knee surgery x2 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 Brain surgery - colloid cyst removal Reports: Appendectomy, Cholecystectomy Smoking History Former Smoker Social History Alcohol Use: 1-3 per day Other Social History: Good social support, Ambulatory Status Walker Review of Systems Full Review of Systems Constitutional: Denies: Chills, Fever Eyes: Denies: Blurred bilateral, Visual loss bilateral Ears / Nose / Throat: Denies: Sore throat Respiratory: Denies: Shortness of breath Cardiovascular: Denies: Chest pain GI: Denies: Abdominal pain, Diarrhea, Nausea, Vomiting Male: Reports Hematuria, Reports Incontinence, Denies Flank pain, Denies Testicular pain Hematologic: Denies Bruising Endocrine: Denies: Polyuria Skin: Denies Rash Allergy / Immune: Denies: Itching Neurologic: Denies: Headache Psychiatric: Denies: Change mental status Complete sys rev & neg: except as marked. Physical Exam Nursing note and vitals reviewed. Constitutional: Well-developed, well-nourished. Not diaphoretic. Head: Normocephalic and atraumatic. Mouth/Throat: Oropharynx is clear and moist. No oropharyngeal exudate. Eyes: EOM are normal. Pupils are equal, round, and reactive to light. Neck: Supple, no tracheal deviation. Cardiovascular: Normal rate, regular rhythm. Equal and intact distal pulses throughout. Pulmonary/Chest: Effort normal and breath sounds normal. No respiratory distress. Abdominal: Soft. No distension. There is no tenderness, rebound, or guarding. Bowel sounds present. : Observed urinating gross blood. Penis appears normal. Musculoskeletal: Range of motion grossly intact, moving all extremities. No edema or tenderness appreciated. Neurological: AOx3. Grossly nonfocal exam. Strength and sensation intact and equal to bilateral upper and lower extremities. Skin: Warm and dry, no rashes or pallor appreciated. Psychiatric: Appropriate mood and affect. Behavior appears normal. Vital Signs Vital Signs Date Time Temp Pulse Resp B/P Pulse Ox O2 Delivery O2 Flow Rate FiO2 03/30/17 19:00 71 16 118/61 96 Room Air 03/30/17 15:59 36.7 70 16 115/67 96 Room Air Interpretation & Diagnostics CT KUB with contrast Read by Radiology IMPRESSION: 1. High density material within the urinary bladder, consistent with hemorrhage given history of hematuria. Followup cystoscopy is recommended to exclude underlying mass lesion. 2. No change in pathologically enlarged retroperitoneal and iliac chain lymph nodes, possibly beginning underlying metastatic disease. 3. No evidence of urinary tract calcification, nor obstruction. Dictated by: Tayler Verdugo M.D. on 03/30/2017 at 18:27 Lab Results Interpretation Result Diagram: 03/30/17 1713 03/30/17 1713 Test 03/30/17 16:10 03/30/17 17:13 03/30/17 17:14 Urine Color Bloody (YELLOW) Urine Appearance Turbid (CLEAR,HAZY) Urine pH 6.0 (5.0-8.0) Urine Specific [place] 1.020 (1.003-1.035) Urine Protein 300mg/dL (NEG,TRACE) Urine Glucose (UA) Negativemg/dL (NEGATIVE) Urine Ketones Negativemg/dL (NEGATIVE) Urine Occult Blood Large (NEGATIVE) Urine Nitrite Negative (NEGATIVE) Urine Bilirubin Negative (NEGATIVE) Urine Urobilinogen Normalmg/dL (NORMAL) Urine Leukocyte Esterase Negative (NEGATIVE) Urine RBC Packed/hpf (0-2) Urine WBC 0-5/hpf (0-5) Urine Epithelial Cells Occasional/hpf (NONE-MOD) Urine Crystals None seen (NONE SEEN) Urine Bacteria None/hpf (NONE-FEW) Urine Hyaline Casts None/lpf (NONE) Urine Granular Casts None seen (NONE SEEN) Urine Waxy Casts None seen (NONE SEEN) Urine Red Blood Cell Casts None seen (NONE SEEN) Urine White Blood Cell Casts None seen (NONE SEEN) Urine Mucus None seen (None Seen) Urine Trichomonas None seen (NONE SEEN) Urine Yeast None (NONE SEEN) Urinalysis Comment None Urine Culture Reflexed Not indicated White Blood Count 26.7th/mm3 (3.8-10.1) Red Blood Count 4.19mil/mm3 (4.40-5.80) Hemoglobin 13.0g/dL (13.8-17.2) Hematocrit 38.4% (41.0-50.0) Mean Corpuscular Volume 91.6fL (81-100) Mean Corpuscular Hemoglobin 31.0pg (27.0-35.0) Mean Corpuscular Hemoglobin Concent 33.9% (32.0-37.0) Red Cell Distribution Width 13.2% (12.3-15.4) Platelet Count 107bil/L (150-400) Neutrophils (%) (Auto) 14% (40-74) Lymphocytes (%) (Auto) 85% (14-46) Monocytes (%) (Auto) 1% (4-12) Eosinophils (%) (Auto) 0% (0-5) Basophils (%) (Auto) 0% (0-3) Band Neutrophils % % (1-5) Metamyelocytes % % (0-0) Myelocytes % % (0-0) Promyelocytes % % (0-0) Blast Cells % % (0-0) Nucleated Red Blood Cells /100 WBC (0-24) Hematology Comments Prothrombin Time 10.9sec (8.1-12.5) Prothromb Time International Ratio 1.02ratio Sodium Level 135mEq/L (134-144) Potassium Level 4.4mEq/L (3.5-5.2) Chloride Level 102mEq/L (97-108) Carbon Dioxide Level 19mmol/L (18-29) Blood Urea Nitrogen 22mg/dL (8-27) Creatinine 1.80mg/dL (0.76-1.27) Estimat Glomerular Filtration Rate 39mL/min (>59) Glucose Level 98mg/dL (60-99) Calcium Level 8.3mg/dL (8.5-10.1) Magnesium Level 2.2mg/dL (1.6-2.6) Total Bilirubin 0.5mg/dL (0.0-1.2) Aspartate Amino Transf (AST/SGOT) 19U/L (0-50) Alanine Aminotransferase (ALT/SGPT) 17U/L (0-44) Alkaline Phosphatase 54U/L (25-160) Total Protein 6.0g/dL (6.4-8.4) Albumin 3.5g/dL (3.4-5.0) Lipase 48U/L (13-60) Hold Hernández Top Tube Received (Received) Re-Eval/Medical Decision Med Decision/Clinical Course In summary, 76-year-old male with a history of hypertension, recent admission for UTI and TIA presenting to the ED for evaluation of gross hematuria over the past several days, progressively worsening. Differential is broad and includes bladder cancer, urinary outflow obstruction, coagulopathy, nephrolithiasis/ ureterolithiasis, etc. The patient does not have any significant abdominal pain or tenderness to palpation; CT scan of the patient's abdomen demonstrates high density material within the urinary bladder consistent with hemorrhage, as well as pathologically enlarged retroperitoneal and iliac chain lymph nodes - no evidence of urinary tract calcification or obstruction. Laboratory studies reviewed, notable for a white blood cell count of 26.7 up from 25.4 week ago with 85% lymphocytes (this has been gradually trending up over the past year), platelets of 107 (stable), urinalysis with no signs of infection but large amount of blood and packed RBCs. Creatinine 1.8 up from 1.4, PTT/INR grossly within normal limits. Given the patient's gross hematuria that has been getting worse and the findings on CT scan, urology was consulted as per below; appreciate recommendations. It was recommended that a Cross catheter be placed and irrigated. This was done with some success here in the emergency department. They will see the patient tomorrow on the floor. I also discussed the patient with Dr. Lopez, who will see the patient tomorrow as there is some concern that he may have CLL or some other hematologic malignancy. I discussed the above with the patient and his family at length, and they were agreeable to admission for further management and evaluation, no further questions. Time of Eval: 18:59 Patient Status: Condition improved Re-Evaluation/Progress Note: Patient is recehecked. He is informed of his reassuring results at this time. He agrees with the plan to consult with urology and oncology. Time of Eval: 19:20 Re-Evaluation/Progress Note: Patient rechecked. Discussed plan to admit. Patient understands and agrees with plan. All questions addressed at this time. Consultation #1: Referral / Consult Name: Eveline Mcmahon MD Consulted With: Urology Call Returned at: 19:18 Multicut Line Operator: Will see patient, Agrees with eval, Agrees with plan Note: Discussed patient condition. Recommends admission at this time. Consultation #2: Referral / Consult Name: Alan Lopez MD Call Returned at: 19:23 Multicut Line Operator: Agrees with eval, Agrees with plan Note: Oncology. Discussed patient's case and plan to admit. Consultation #3: Referral / Consult Name: QianaTami Quevedo Consulted With: Hospitalist Call Returned at: 20:04 Multicut Line Operator: Will see patient, Agrees with eval, Agrees with plan, Accepts admit Note: Discussed Urology recommendation to admit. Will accept admission. Counseled Regarding: Diagnosis, Lab results, Need for admission Discharge & Departure Primary Impression: Leukocytosis Leukocytosis type: lymphocytosis Qualified Code: D72.820 - Lymphocytosis ( symptomatic) Additional Impressions: Hematuria Thrombocytopenia Ivitb-pj-yvlhslk kidney injury Disposition: ADMITTED TO HOSPITAL Discharge Condition All VS Reviewed: Yes Condition: Improved Referrals: Hunter Carvalho MD (PCP) Saji Attestation Portions of this note were transcribed by Hortencia Ramirez and Jd Wills. I, Dr. Paiz, personally performed the history, physical exam and medical decision-making; I reviewed and confirmed the accuracy of the information in the transcribed note. Signed by: Saji Mc, 03/30/17. Signed by: Saji Anglin, 03/30/17. copies to: Hunter Carvalho MD, William B MD Mar 30, 2017 16:05 Mar 30, 2017 18:04 HORTENCIA RAMIREZ Mar 30, 2017 18:28 Mar 30, 2017 18:04 JAMESHORTENCIA Mar 30, 2017 18:28 Ian Paiz MD Mar 30, 2017 16:05 Mar 30, 2017 18:04 HORTENCIA RAMIREZ Mar 30, 2017 18:28
[2017-03-30 17:26] LABS: Mean Corpuscular Volume 91.6 fL (81-100); Platelet Count 107 bil/L (150-400)
[2017-03-30 17:32] LABS: APPEARANCE,URINE TURBID (CLEAR,HAZY); COLOR,URINE BLOODY (YELLOW)
[2017-03-30 17:33] LABS: OCCULT BLOOD,URINE LARGE (NEGATIVE); UROBILINOGEN,URINE NORMAL (NORMAL)
[2017-03-30 17:48] LABS: Magnesium 2.2 mg/dL (1.6-2.6)
[2017-03-30] MEDS ORDERED: Cholestyramine Resin Powder 4 Gm Packet PO ONE (17:55)
[2017-03-30 18:05] LABS: BASOPHILS % (AUTO) 0 % (0-3); EOSINOPHILS % (AUTO) 0 % (0-5); MONOCYTES % (AUTO) 1 % (4-12); NEUTROPHILS % (AUTO) 14 % (40-74)
[2017-03-30 18:23] LABS: INR 1.02 ratio
--- NOTE | 2017-03-30 18:32 | DRSVH ---
PROCEDURE: CT KUB ([id number]) INDICATIONS: gross hematuria, WBC 26K, ?mass, other abnl TECHNIQUE: Noncontrast 5 mm thick sections acquired from the diaphragms to the symphysis. 5 mm thick coronal an d sagittal reformats were then performed. For radiation dose reduction, the following was used: aut omated exposure control, adjustment of mA and/or kV according to patient size. COMPARISON: [facility], CT, CT KUB, 01/22/2017, 10:45. FINDINGS: Image quality: Excellent. Lung bases: Lung bases are clear. Heart size is normal. Urinary system: Both kidneys are normal in size. No kidney stones. No hydronephrosis or perinephri c fat stranding. No change in 10 mm diameter high density focus within the inferior pole right kidney posteriorly. Both ureters appear non-dilated throughout their expected courses. There is a 36 mm jacob meter region of high density within the posterior bladder. Other solid organs: Liver and spleen are normal in size. Pneumobilia is present. No biliary dilatat ion. Gallbladder is surgically absent. Pancreas is normal in contours. No adrenal nodules. Peritoneum and bowel: Unenhanced bowel loops demonstrate normal wall thickness and caliber. No free fluid or air. Nodes and vessels: No change in enlarged retroperitoneal lymph nodes, largest of which measure 14 mm short axis in the inferior preaortic location, and 16 mm short axis within the left posterior para-a ortic location. No change in enlarged bilateral iliac chain lymph nodes. Aorta and inferior vena cava are normal in caliber. Abdominal wall: No ventral hernias. Pelvis: No free pelvic fluid. No inguinal hernias. No change in mildly prominent bilateral inguinal lymph nodes. Bones: No suspicious bony lesions. No vertebral body compression fractures. IMPRESSION: 1. High density material within the urinary bladder, consistent with hemorrhage given history of lupe turia. Followup cystoscopy is recommended to exclude underlying mass lesion. 2. No change in pathologically enlarged retroperitoneal and iliac chain lymph nodes, possibly beginni ng underlying metastatic disease. 3. No evidence of urinary tract calcification, nor obstruction. Dictated by: Tayler Verdugo M.D. on 03/30/2017 at 18:27 Approved by: Tayler Verdugo M.D. on 03/30/2017 at 18:31
[2017-03-30 19:00] VITALS: BP 118/61; PULSE 71; RESP 16; O2SAT 96
[2017-03-30] MEDS ORDERED: Lidocaine 2% 5 mL Urojet Topical Jelly Syringe TOPICAL ONE (19:45)
[2017-03-30] MEDS ORDERED: Lidocaine 2% 6mL Topical Jelly ONE (19:59)
[2017-03-30 20:16] VITALS: BP 118/61; PULSE 71; RESP 16; O2SAT 96
[2017-03-30 20:24] VITALS: BP 109/66; PULSE 60; RESP 16; O2SAT 95
[2017-03-30 21:00] VITALS: BP 129/79; PULSE 81; RESP 18; O2SAT 96
[2017-03-30] MEDS ORDERED: Polyethylene Glycol (PEG) 17 Gm Powder PO PRN (21:10)
[2017-03-30] MEDS ORDERED: Alum-Mag Hydrox-Simeth 30 mL Suspension PO PRN (21:10)
[2017-03-30] MEDS ORDERED: Ondansetron 2 mg/mL 2 mL Inj IVPUSH PRN (21:10)
[2017-03-30] MEDS ORDERED: Glucose 40% Oral Gel 15 Gm Tube PO PRN (21:20)
[2017-03-30] MEDS ORDERED: Dextrose 10% 250 ML IV PRN (21:30)
[2017-03-30 21:33] VITALS: PULSE 70
[2017-03-30] MEDS ORDERED: Insulin LISPRO 300 Unit/3 mL Inj SUBQ SCH (22:00)
--- NOTE | 2017-03-30 23:46 | PCM.HPMED ---
Subjective Date of Service Mar 30, 2017 Primary Provider: Admitting Physician: Tami Kiran DO Primary Care Physician: Hunter Caravlho MD Attending Physician: Tami Kiran DO Admit Status: 23-Hour Observation Chief Complaint: Hematuria History of Present Illness: Patient is a 76 year old male with h/o HTN, Afib, and recurrent UTIs that presents with three days of hematuria. Patient was recently discharged from here on 03/24 with a UTI that grew Strep viridans and given six days of Ceftriaxone. Patient is a resident of [facility] who reports that three days ago he noticed his urine a "cola" color that progressively became darker and thicker over the past two days. He notes that today his urine began to be bright red blood. He reports urinary frequency throughout this time, and has to urinate 8-9x per day. Associated symptoms include bilateral flank pain that was intermittent the last two days. Denies any dysuria, ABD pain, diarrhea, fevers/chills, CP, SOB, or diaphoresis. Dr. Eisenberg discontinued patient's home Plavix three days ago with concern this was the cause of the patient's symptoms. reports that the patient had a cystoscopy appointment with Dr. Clement 5 weeks ago that showed a "slight growth" and was instructed to follow up in three months to track growth. Patient's most recent heme studies from last admission showed an elevated WBC, low platelets with atypical lymphocytes. Patient was scheduled with hematology in the next week with some concern for CLL. In ED, CT ABD pelvis performed showing a high density material in the urinary bladder and pathologically enlarged retroperitoneal lymph nodes. Urology was consulted and plan for cystoscopy tomorrow morning. Vitals in ED: T 36.7, P 70 , R 16, BP 115/67, O2 96 on room air. WBC 26.7 and Plt 107. Review of Systems: Negative unless otherwise noted above. Allergies Coded Allergies: macadamia nut oil (Verified Allergy, Unknown, nausea, chest pain, 03/18/17) Home Medications Alpha Lipoic Acid (Alpha Lipoic Acid) 100 Mg Capsule 300 MG PO QAM Aspirin (Aspirin) 325 Mg Tablet 325 MG PO DAILY Cholecalciferol (Vitamin D3) (Vitamin D3) 1,000 Unit Tab.chew 1,000 UNIT PO QAM Cholestyramine/Aspartame (Cholestyramine Light Packet) 4 Gm Powd.pack 4 GM PO 3PM Cyanocobalamin (Vitamin B12) 500 Mcg Tablet 500 MCG PO QAM Finasteride (Finasteride) 5 Mg Tablet 5 MG PO QPM Metoprolol Tartrate (Metoprolol Tartrate) 100 Mg Tablet 100 MG PO BID Pravastatin (Pravastatin) 20 Mg Tablet 20 MG PO HS Tamsulosin (Flomax) 0.4 Mg Capsule 0.4 MG PO HS PMH HTN Afib with RVR - not on anticoagulation Recurrent UTIs Reported Diabetes Mellitus - not on any diabetic medications. Surgical History Total knee x2 Stem Cell Seminoma Tumor Removal Colloid Cyst Removal - Brain surgery Appendectomy Cholecystectomy Family History Type II Diabetes. Social History Hx Alcohol Use: Yes Hx Substance Use: No Hx Tobacco Use: No Smoking Status: Former Smoker, Unknown if Ever Smoker Living Arrangement: Half-Way Facility Exam Vital Signs Vital Sign - Last Date Time Temp Pulse Resp B/P Pulse Ox O2 Delivery O2 Flow Rate FiO2 03/30/17 20:24 36.6 60 16 109/66 95 Room Air Exam Constitutional: Awake, Alert, and Oriented x 3. Conversive and Cooperative. No acute distress Head: normocephalic and atraumatic Eyes: no scleral icterus, pink conjunctiva, pupils equal round and reactive to light Heart: grade 1 systolic murmur on the right sternal border. regular rate and irregularly irregular rhythm. No rubs or gallops. Lungs: clear to auscultation. no wheeze, rales, or rhonchi ABD: soft, nontender, normal bowel sounds. old cholecystectomy surgical scar, old appendectomy surgical scar Musculoskeletal: moves all four extremities appropriately, 5/5 strength in bilateral UE Neuro: CN II-XII intact. decreased sensation to lower extremities secondary to chronic neuropathy. Skin: warm, dry, no rashes, Psych: appropriate mood and affect. Lab and Diagnostics Labs Item Value Date Time Red Blood Count 4.19 mil/mm3 L 03/30/171712 Mean Corpuscular Volume 91.6 fL 03/30/171712 Mean Corpuscular Hemoglobin 31.0 pg 03/30/171712 Mean Corpuscular Hemoglobin Concent 33.9 % 03/30/171712 Red Cell Distribution Width 13.2 % 03/30/171712 Neutrophils (%) (Auto) 14 % L 03/30/171712 Lymphocytes (%) (Auto) 85 % H 03/30/171712 Monocytes (%) (Auto) 1 % L 03/30/171712 Eosinophils (%) (Auto) 0 % 03/30/171712 Basophils (%) (Auto) 0 % 03/30/171712 Estimat Glomerular Filtration Rate 39 mL/min 03/30/171712 Magnesium Level 2.2 mg/dL 03/30/171712 Total Bilirubin 0.5 mg/dL 03/30/171712 Aspartate Amino Transf (AST/SGOT) 19 U/L 03/30/171712 Alanine Aminotransferase (ALT/SGPT) 17 U/L 03/30/171712 Alkaline Phosphatase 54 U/L 03/30/171712 Albumin 3.5 g/dL 03/30/171712 Lipase 48 U/L 03/30/171712 Total Protein 6.0 g/dL L 03/30/171712 Prothrombin Time 10.9 sec 03/30/171712 Prothromb Time International Ratio 1.02 ratio 03/30/171712 Result Diagram: 03/30/17171203/30/171712 X-Rays, CTs and MRIs PROCEDURE: CT KUB ([id number]) IMPRESSION: 1. High density material within the urinary bladder, consistent with hemorrhage given history of hematuria. Followup cystoscopy is recommended to exclude underlying mass lesion. 2. No change in pathologically enlarged retroperitoneal and iliac chain lymph nodes, possibly beginning underlying metastatic disease. 3. No evidence of urinary tract calcification, nor obstruction. Dictated by: Tayler Verdugo M.D. on 03/30/2017 at 18:27 Assessment & Plan Patient is a 76 year old male with h/o HTN, Afib, and recurrent UTIs that presents with three days of hematuria. Patient had cystoscopy 5 weeks ago that showed "slight growth" and was planned for followup scope in the next three months. - Acute Hematuria, Present on Admission, Active, Stable - Patient has three days worth of hematuria with recent cystoscopy showing "slight growth" - Plan to be seen by urology in AM for repeat cystoscopy. - NPO after midnight for possible procedure in AM - AM labs: CBC, CMP - Leukocytosis, Chronicity Unknown, Present on Admission, Active, Stable - WBC 26.7 on admission with no direct source of infection; differential showed neutrophil 14% and lymphocyte 85% - Monitor for signs of infection, pt currently afebrile - Repeat AM CBC. - Lymphocytosis, Chronicity Unknown, Present on Admission, Active, Stable - Lymphocyte count 85% on admission with smudge cells seen on hematology report , consider CLL - Consult Heme/oncology in AM - Ordered Immunoglobulin Assay - Thrombocytopenia, Chronicity Unknown, Present on Admission, Active, Stable - Platelet count 107 on admission with low counts on previous admission, likely secondary to malignant source given consideration for CLL - Monitor with AM CBC - Hypertension, Chronic, Stable - Continue home dose - Afib with RVR, Chronic, Stable - Patient rate controlled and not on anticoagulation - Hold home dose of Plavix - H/o Diabetes Mellitus, Chronic, Stable - Patient not on any home diabetes medications - Insulin gtt CODE STATUS DNR/DNI Pain Evaluation: Adequate Pain Control VTE Prophylaxis: SCDs Resuscitation Status: DNR/DNI Time spent 60 minutes Patient is admitted for observation status, will be seen by urology in AM for cystoscopy as well as hematology. Plan for d/c unless changed by urology/ hematology. Pain Evaluation: Adequate Pain Control GI Prophylaxis: Proton Pump Inhibitor VTE Prophylaxis Indicated: Contraindicated VTE Prophylaxis: SCDs Resuscitation Status: DNR/DNI:Do Not Resuscitate/Intubate Attending Statement The patient was seen and examined together with house staff on 03/30/2017 and I agree with the history, exam and plan as outlined in the note above. Agustín Varghese DO Mar 30, 2017 20:37 Tami Kiran DO Mar 31, 2017 04:25
[2017-03-31 01:18] VITALS: BP 121/71; PULSE 84; RESP 16; O2SAT 98
[2017-03-31 05:17] LABS: Mean Corpuscular Hemoglobin 30.6 pg (27.0-35.0); Mean Corpuscular Volume 91.7 fL (81-100); Platelet Count 96 bil/L (150-400)
[2017-03-31 05:38] LABS: MONOCYTES % (AUTO) 2 % (4-12); NEUTROPHILS % (AUTO) 18 % (40-74)
[2017-03-31 05:39] LABS: BASOPHILS % (AUTO) 0 % (0-3); EOSINOPHILS % (AUTO) 1 % (0-5)
[2017-03-31 06:15] VITALS: BP 113/75; PULSE 73; RESP 18; O2SAT 95
--- NOTE | 2017-03-31 06:36 | NUR ---
Admit Pt arrived to [facility] unit room 1003 from the ED via stretcher. transfer to bed with sliding board with 3 staff. A&OX3 with some forgetfulness. Denies N/V/D, pain, resp distress or SOB. Uses CPAP at home and declined offer to used hospital machine but agrees for TUB PULLER overnight. No behavioral or safety issue noted. 3way catheter irrigation in place, patent and draining dark red to pink color urine. No CBI at this time. F/C hand flush and irrigated x2 on this shift with some clots noted. No further issue noted. F/c draining light pink urine at this current moment. Care continues.
--- NOTE | 2017-03-31 07:43 | PCM.HPSURG ---
Subjective Date of Service: Mar 31, 2017 Referring Provider: Admitting Physician: Tami Kiran DO Primary Care Physician: Hunter Carvalho MD Attending Physician: Darlin Ballard MD Chief Complaint gross hematuria History of Present Illness Mr Quinteros is doing well this morning. He denies pain. Mclaughlin was placed. There is no CBI running; his urine is clear in the tubing. Note auto-imported via [facility] from primary team H+P: "Patient is a 76 year old male with h/o HTN, Afib, and recurrent UTIs that presents with three days of hematuria. Patient was recently discharged from here on 03/24 with a UTI that grew Strep viridans and given six days of Ceftriaxone. Patient is a resident of [facility] who reports that three days ago he noticed his urine a "cola" color that progressively became darker and thicker over the past two days. He notes that today his urine began to be bright red blood. He reports urinary frequency throughout this time, and has to urinate 8-9x per day. Associated symptoms include bilateral flank pain that was intermittent the last two days. Denies any dysuria, ABD pain, diarrhea, fevers/chills, CP, SOB, or diaphoresis. Dr. Eisenberg discontinued patient's home Plavix three days ago with concern this was the cause of the patient's symptoms. reports that the patient had a cystoscopy appointment with Dr. Clement 5 weeks ago that showed a "slight growth" and was instructed to follow up in three months to track growth. Patient's most recent heme studies from last admission showed an elevated WBC, low platelets with atypical lymphocytes. Patient was scheduled with hematology in the next week with some concern for CLL. In ED, CT ABD pelvis performed showing a high density material in the urinary bladder and pathologically enlarged retroperitoneal lymph nodes. Urology was consulted and plan for cystoscopy tomorrow morning. Vitals in ED: T 36.7, P 70 , R 16, BP 115/67, O2 96 on room air. WBC 26.7 and Plt 107." Allergy Allergies: Coded Allergies: macadamia nut oil (Verified Allergy, Unknown, nausea, chest pain, 03/18/17) Social History Hx Alcohol Use: Yes Hx Substance Use: No Hx Tobacco Use: No PMH HEENT History History of ENT Problems?: Yes HEENT History: Positive for:: Cataracts (cataract repair in both eyes) Sinus Problem (SEASONAL ALLERGIES) Denies:: Dysphagia Cardiovascular History History of Heart Problems?: Yes Cardiovascular History: Positive for:: Atrial Fibrillation (WITH RVR THIS ADMIT) Cardiac Surgery (TUMOR REMOVED FROM BEHIND STERNUM) Edema Heart Murmur Hypertension Irregular Heartbeat (PAROXSYMAL AFIB) Denies:: Chest Pain Congestive Heart Failure Respiratory History of Respiratory Problem: Yes Respiratory History: Positive for:: Chest Surgery Denies:: Asthma Dyspnea Pneumonia Tuberculosis Neurological History Hx Neurologic Problems?: Yes Neurological History: Denies:: CVA Dizziness Headaches Parkinson's Disease Seizures Gastrointestinal History HX of GI Problems?: Yes Gastrointestinal History: Positive for:: Gastroesphageal Reflux (occasionally) Heartburn Denies:: Diverticulitis Gastrointestinal Bleeding Hepatitis Hiatal Hernia Genitourinary History Hx of Gu Problems?: Yes Genitourinary History: Positive for: Urinary Tract Infection Female/Male History Reproductive History Male: Positive for: Prostate Problems (BPH with LUTS) Musculoskeletal History Hx Musculoskeletal Problems?: Yes Musculoskeletal History: Positive for:: Back Injury (lumbar stenosis) Joint Replacement (bilateral knees) Psycho Social History Hx of Psycho/Social Problems?: No Other History Hx Any Other Health Problems?: Yes Other History: Positive for:: Cancer (stem cell carcinoma) Hospitalization (Afib 2015) Denies:: Endocrine Disease Thyroid Disease Diabetes: Yes (TYPE 2 DIET CONTROLLED)Bedside Blood Glucose: 106 Social History Hx Alcohol Use: YesHx Substance Use: NoHx Tobacco Use: No Smoking Status: Former Smoker Living Arrangement: [facility] Facility H&P Surgical Exam Exam General: Alert, Cooperative, No Acute Distress Abdomen: Soft Neuro: Cranial Nerves 2-12 nl Assessment & Plan Assessment Gross hematuria, resolved VTE Prophylaxis: SCDs VTE Mechanical Devices: Intermittant Pneumatic CD Plan: Plan for mclaughlin DC now From a purely urologic standpoint, he can discharge from hospital, though I understand he may require further evaluation outside of his chief complaint We reviewed potential etiology of his gross hematuria - Recent UTI - Use of anticoagulation (though currently discontinued) - Prostatic, etc I will follow-up with him as outpatient Very much appreciate hospitalist care of Mr Quinteros Resuscitation Status: DNR/DNI:Do Not Resuscitate/Intubate Eveline Mcmahon MD Mar 31, 2017 07:43
[2017-03-31] MEDS ORDERED: Glucose 40% Oral Gel 15 Gm Tube PO PRN (08:05)
--- NOTE | 2017-03-31 08:13 | NUR ---
Tay Cross DC'd at 0810 per MD order.
[2017-03-31] MEDS ORDERED: Insulin Human REGular 300 Unit/3 mL Inj SUBQ SCH (08:30)
--- NOTE | 2017-03-31 08:49 | CONS ---
[address] [address] CONSULTATION REPORT PATIENT: JEYSON AARON : 1940 MR#: [id number] ADMIT: 03/30/2017 JOB ID: [id number] DATE OF SERVICE: 03/31/2017 HISTORY OF PRESENT ILLNESS: The patient is a is a 76-year-old gentleman, admitted yesterday with three days of hematuria, found to have thrombocytopenia and leukocytosis with lymphocytosis. He has a history of hypertension, atrial fibrillation and recurrent urinary tract infections. Previous hospitalization on March 24 found urinary tract infection with Strep viridans, treated with six days of ceftriaxone. He has been residing at [facility]. He noted red urine about three days ago. He denies any dysuria. He denies any fevers or chills. CT KUB in the emergency department on March 30, 2017, to evaluate gross hematuria showed high density material within the urinary bladder, consistent with hemorrhage, given the history of hematuria. Cystoscopy was recommended to exclude an underlying mass lesion. He had pathologically enlarged retroperitoneal and iliac chain lymph nodes. There is no evidence of urinary obstruction. PAST MEDICAL HISTORY: 1. Hypertension. 2. Atrial fibrillation. 3. Hematuria. 4. Urinary tract infection. 5. Hyperlipidemia. 6. Benign prostatic hypertrophy. 7. Atrial fibrillation with rapid ventricular response-not on anticoagulation. 8. Reported diabetes-not on diabetic medications. 9. Total knee surgery x2. 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 12. Appendectomy. 13. Cholecystectomy. FAMILY HISTORY: No significant family history of cancer. There is a family history of diabetes. SOCIAL HISTORY AND HABITS: The patient has been residing at [facility] in [place]. He is . He is not working. He is a former smoker. There is a history of alcohol use, but not abuse. REVIEW OF SYSTEMS: Denies any headaches, dizziness, or disequilibrium. He denies any fevers, but has had a few chills. He denies any developing lymphadenopathy. He has some dyspnea with exertion. No chest pain. Occasional GE reflux symptoms. No nausea or vomiting, diarrhea or constipation. Minimal abdominal discomfort. He has had hematuria for the past three days. No acute arthritic concerns. Remaining review of systems is unremarkable. PHYSICAL EXAMINATION: This is a pleasant, older gentleman, in no acute distress. Vitals: T 36.9, P 73, R 18, BP 113/75, O2 saturation 95% on room air. Height 187.96 cm, weight 125.3 kg. HEENT: Pupils equally round, reactive to light. Extraocular muscles intact. Sclerae anicteric. Conjunctivae pink. Mucous membranes moist. No oral lesions. Nodes: He has some shotty adenopathy in the neck. No axillary adenopathy. There is a mildly enlarged adenopathy in the inguinal region bilaterally. Chest: Distant but clear. No wheezes or crackles. Cardiac exam: Regular rate and rhythm with rare ectopic beat. Normal S1, S2. No murmurs appreciated. Abdomen: Large, soft, nontender. No palpable splenomegaly or masses. Extremities: Trace edema. 1+ distal pulses. No calf tenderness. No cyanosis or clubbing. No petechiae or ecchymoses. Neuro: Alert and cooperative. Mild generalized weakness but without gross focal deficits. LABORATORIES: WBC 26.5, with 18% neutrophils, 79% lymphocytes, hemoglobin 12.5, hematocrit 37.5%, platelets 96,000. Sodium 139, potassium 4.5, BUN 21, creatinine 1.66, glucose 96, AST 17, ALT 15, alkaline phosphatase 52. Total bilirubin 0.5. ASSESSMENT AND PLAN: 1. Suspect chronic lymphocytic leukemia: The patient's hematologic parameters reveal a progressive leukocytosis. White blood cells were normal at 5.6 in November 2014, but by June 2016, were 12.4, and currently are 26.5, primarily lymphocytes. In addition, CT KUB imaging suggests pathologically enlarged retroperitoneal lymphadenopathy. Complete imaging studies with CT of the chest, abdomen, and pelvis. He has a mildly enlarged palpable adenopathy in the neck and inguinal region. Platelets are decreased. All of the above is consistent with chronic lymphocytic leukemia/small lymphocytic lymphoma. To confirm the diagnosis, we will obtain peripheral blood for flow cytometry studies. These will take 2-3 days for results to return. After confirmation of the diagnosis, the patient is a potential candidate for treatment. 2. Hematuria: The patient's platelets have been decreased since at least 2014, and are not markedly lower than values from November 2014, at which time his platelets were 111,000. Even at a level of 96,000, spontaneous hematuria is not common. Agree with Dr. Eveline Mcmahon that further Urologic evaluation is indicated. She anticipates followup with him as an outpatient. 3. Renal insufficiency: Current creatinine of 1.66, is stable dating back to at least November 2014. Continue management as an outpatient. Caution with use of contrast dye in imaging studies. Thank you for allowing us to participate in your patient's care.
[2017-03-31 08:58] VITALS: BP 111/70; PULSE 70; RESP 18; O2SAT 95
[2017-03-31 09:54] VITALS: PULSE 70
--- NOTE | 2017-03-31 11:49 | PCM.DIMED ---
Discharge Instructions Date of Service Mar 31, 2017 Dates of Hospitalization Mar 30, 2017 at 20:04 Discharge Diagnosis Discharge Diagnosis Gross hematuria, leukocytosis, thrombocytopenia possible CLL Diet Discharge Diet: Heart Healthy Activity Discharge Activity: Other (progresses tolerated) Call your provider Call your provider for: Fever or Chills, Shortness of breath, Bleeding, Chest pain, Vomitting, Excessive diarrhea, Weakness (unilateral) Patient Instructions Follow-up plan Patient is to follow-up with outpatient urology, Dr. Clay. We will also arrange an outpatient appointment with Dr. Lopez, hematology oncology Follow-up Provider: Dario Mcwilliams MD Follow-up with PCP in: 1 week Darlin Ballard MD Mar 31, 2017 11:49
[2017-03-31] MEDS ORDERED: ASPI325T32 PO (11:54)
[2017-03-31] MEDS ORDERED: Insulin LISPRO 300 Unit/3 mL Inj SUBQ SCH (12:00)
--- NOTE | 2017-03-31 12:02 | PCM.DC.MED ---
Discharge Summary Date of Service Mar 31, 2017 Dates of Hospitalization Date of Hospital Admission Mar 30, 2017 at 20:04 Date of Discharge: Mar 31, 2017 Providers: Admitting Physician: Tami Kiran DO Primary Care Physician: Hunter Carvalho MD Attending Physician: Darlin Ballard MD Diagnosis at Time of Discharge Diagnosis at Time of Discharge Gross hematuria, leukocytosis, thrombocytopenia possible CLL Consultations Urology, oncology Procedures XRay, CTs & MRIs PROCEDURE: CT KUB ([id number]) IMPRESSION: 1. High density material within the urinary bladder, consistent with hemorrhage given history of hematuria. Followup cystoscopy is recommended to exclude underlying mass lesion. 2. No change in pathologically enlarged retroperitoneal and iliac chain lymph nodes, possibly beginning underlying metastatic disease. 3. No evidence of urinary tract calcification, nor obstruction. Dictated by: Tayler Verdugo M.D. on 03/30/2017 at 18:27 Brief History Mr Quinteros is doing well this morning. He denies pain. Cross was placed. There is no CBI running; his urine is clear in the tubing. Note auto-imported via [employer] from primary team H+P: "Patient is a 76 year old male with h/o HTN, Afib, and recurrent UTIs that presents with three days of hematuria. Patient was recently discharged from here on 03/24 with a UTI that grew Strep viridans and given six days of Ceftriaxone. Patient is a resident of [facility] who reports that three days ago he noticed his urine a "cola" color that progressively became darker and thicker over the past two days. He notes that today his urine began to be bright red blood. He reports urinary frequency throughout this time, and has to urinate 8-9x per day. Associated symptoms include bilateral flank pain that was intermittent the last two days. Denies any dysuria, ABD pain, diarrhea, fevers/chills, CP, SOB, or diaphoresis. Dr. Eisenberg discontinued patient's home Plavix three days ago with concern this was the cause of the patient's symptoms. reports that the patient had a cystoscopy appointment with Dr. Clement 5 weeks ago that showed a "slight growth" and was instructed to follow up in three months to track growth. Patient's most recent heme studies from last admission showed an elevated WBC, low platelets with atypical lymphocytes. Patient was scheduled with hematology in the next week with some concern for CLL. In ED, CT ABD pelvis performed showing a high density material in the urinary bladder and pathologically enlarged retroperitoneal lymph nodes. Urology was consulted and plan for cystoscopy tomorrow morning. Vitals in ED: T 36.7, P 70 , R 16, BP 115/67, O2 96 on room air. WBC 26.7 and Plt 107." Hospital Course Patient is a 76 year old male with h/o HTN, Afib, and recurrent UTIs that presents with three days of hematuria. Patient had cystoscopy 5 weeks ago that showed "slight growth" and was planned for followup scope in the next three months. - Acute Hematuria, Present on Admission, Active, Stable - Patient has three days worth of hematuria with recent cystoscopy showing "slight growth" - Plan to be seen by urology in AM for repeat cystoscopy. - NPO after midnight for possible procedure in AM -Urology saw the patient this morning and Vanessa Cross and recommended outpatient follow-up - Leukocytosis, Chronicity Unknown, Present on Admission, Active, Stable - WBC 26.7 on admission with no direct source of infection; differential showed neutrophil 14% and lymphocyte 85% - Monitor for signs of infection, pt currently afebrile - - Lymphocytosis, Chronicity Unknown, Present on Admission, Active, Stable - Lymphocyte count 85% on admission with smudge cells seen on hematology report , consider CLL - Consult Heme/oncology in AM - Dr. Lopez, hematology oncology saw the patient this morning recommended CT of chest abdomen and pelvis to further elucidate and he will order flow cytometry - Thrombocytopenia, Chronicity Unknown, Present on Admission, Active, Stable - Platelet count 107 on admission with low counts on previous admission, likely secondary to malignant source given consideration for CLL - Monitor with AM CBC - Hypertension, Chronic, Stable - Continue home dose - Afib with RVR, Chronic, Stable - Patient rate controlled and not on anticoagulation - Hold home dose of Plavix - H/o Diabetes Mellitus, Chronic, Stable - Patient not on any home diabetes medications - Insulin gtt Addendum: Patient and were quite concerned that they were observation status and we (myself and case management) had a long discussion with them that they did not qualify to be inpatient status. This point patient and had decided to want to be discharged and continue evaluation of these conditions as an outpatient. Patient already has an outpatient appointment with the urologist. And we will arrange for outpatient follow-up with Dr. Lopez, oncology. CODE STATUS DNR/DNI Pain Evaluation: Adequate Pain Control VTE Prophylaxis: SCDs Resuscitation Status: DNR/DNI Time spent 60 minutes Exam Vital Signs (Last) Date Time Temp Pulse Resp B/P Pulse Ox O2 Delivery O2 Flow Rate FiO2 03/31/17 09:54 70 03/31/17 08:58 36.7 18 111/70 95 Room Air Exam Constitutional: 76-year-old male in no acute distress Head: Normocephalic atraumatic Chest: Clear to auscultation Cor: Regular rate and rhythm S1-S2 Abdomen: Soft nontender bowel sounds present Extremities: Trace bilateral pedal edema : Neuro alert and oriented 3, motor strength is intact bilaterally Laboratory Tests 72 Hours Test 03/30/17 16:10 03/30/17 17:13 03/30/17 17:14 03/31/17 04:58 Urine Color Bloody (YELLOW) Urine Appearance Turbid (CLEAR,HAZY) Urine pH 6.0 (5.0-8.0) Urine Specific [place] 1.020 (1.003-1.035) Urine Protein 300mg/dL (NEG,TRACE) Urine Glucose (UA) Negativemg/dL (NEGATIVE) Urine Ketones Negativemg/dL (NEGATIVE) Urine Occult Blood Large (NEGATIVE) Urine Nitrite Negative (NEGATIVE) Urine Bilirubin Negative (NEGATIVE) Urine Urobilinogen Normalmg/dL (NORMAL) Urine Leukocyte Esterase Negative (NEGATIVE) Urine RBC Packed/hpf (0-2) Urine WBC 0-5/hpf (0-5) Urine Epithelial Cells Occasional/hpf (NONE-MOD) Urine Crystals None seen (NONE SEEN) Urine Bacteria None/hpf (NONE-FEW) Urine Hyaline Casts None/lpf (NONE) Urine Granular Casts None seen (NONE SEEN) Urine Waxy Casts None seen (NONE SEEN) Urine Red Blood Cell Casts None seen (NONE SEEN) Urine White Blood Cell Casts None seen (NONE SEEN) Urine Mucus None seen (None Seen) Urine Trichomonas None seen (NONE SEEN) Urine Yeast None (NONE SEEN) Urinalysis Comment None Urine Culture Reflexed Not indicated White Blood Count 26.7th/mm3 (3.8-10.1) 26.5th/mm3 (3.8-10.1) Red Blood Count 4.19mil/mm3 (4.40-5.80) 4.09mil/mm3 (4.40-5.80) Hemoglobin 13.0g/dL (13.8-17.2) 12.5g/dL (13.8-17.2) Hematocrit 38.4% (41.0-50.0) 37.5% (41.0-50.0) Mean Corpuscular Volume 91.6fL (81-100) 91.7fL (81-100) Mean Corpuscular Hemoglobin 31.0pg (27.0-35.0) 30.6pg (27.0-35.0) Mean Corpuscular Hemoglobin Concent 33.9% (32.0-37.0) 33.3% (32.0-37.0) Red Cell Distribution Width 13.2% (12.3-15.4) 13.2% (12.3-15.4) Platelet Count 107bil/L (150-400) 96bil/L (150-400) Neutrophils (%) (Auto) 14% (40-74) 18% (40-74) Lymphocytes (%) (Auto) 85% (14-46) 79% (14-46) Monocytes (%) (Auto) 1% (4-12) 2% (4-12) Eosinophils (%) (Auto) 0% (0-5) 1% (0-5) Basophils (%) (Auto) 0% (0-3) 0% (0-3) Band Neutrophils % % (1-5) 1% (1-5) Metamyelocytes % % (0-0) Myelocytes % % (0-0) Promyelocytes % % (0-0) Blast Cells % % (0-0) Nucleated Red Blood Cells /100 WBC (0-24) Hematology Comments Prothrombin Time 10.9sec (8.1-12.5) Prothromb Time International Ratio 1.02ratio Sodium Level 135mEq/L (134-144) 139mEq/L (134-144) Potassium Level 4.4mEq/L (3.5-5.2) 4.5mEq/L (3.5-5.2) Chloride Level 102mEq/L (97-108) 102mEq/L (97-108) Carbon Dioxide Level 19mmol/L (18-29) 21mmol/L (18-29) Blood Urea Nitrogen 22mg/dL (8-27) 21mg/dL (8-27) Creatinine 1.80mg/dL (0.76-1.27) 1.66mg/dL (0.76-1.27) Estimat Glomerular Filtration Rate 39mL/min (>59) 43mL/min (>59) Glucose Level 98mg/dL (60-99) 96mg/dL (60-99) Calcium Level 8.3mg/dL (8.5-10.1) 8.6mg/dL (8.5-10.1) Magnesium Level 2.2mg/dL (1.6-2.6) Total Bilirubin 0.5mg/dL (0.0-1.2) 0.5mg/dL (0.0-1.2) Aspartate Amino Transf (AST/SGOT) 19U/L (0-50) 17U/L (0-50) Alanine Aminotransferase (ALT/SGPT) 17U/L (0-44) 15U/L (0-44) Alkaline Phosphatase 54U/L (25-160) 52U/L (25-160) Total Protein 6.0g/dL (6.4-8.4) 5.6g/dL (6.4-8.4) Albumin 3.5g/dL (3.4-5.0) 3.6g/dL (3.4-5.0) Lipase 48U/L (13-60) Hold Hernández Top Tube Received (Received) Test 03/30/17 16:10 03/30/17 17:13 03/30/17 17:14 03/31/17 04:58 Urine Color Bloody (YELLOW) Urine Appearance Turbid (CLEAR,HAZY) Urine pH 6.0 (5.0-8.0) Urine Specific [place] 1.020 (1.003-1.035) Urine Protein 300mg/dL (NEG,TRACE) Urine Glucose (UA) Negativemg/dL (NEGATIVE) Urine Ketones Negativemg/dL (NEGATIVE) Urine Occult Blood Large (NEGATIVE) Urine Nitrite Negative (NEGATIVE) Urine Bilirubin Negative (NEGATIVE) Urine Urobilinogen Normalmg/dL (NORMAL) Urine Leukocyte Esterase Negative (NEGATIVE) Urine RBC Packed/hpf (0-2) Urine WBC 0-5/hpf (0-5) Urine Epithelial Cells Occasional/hpf (NONE-MOD) Urine Crystals None seen (NONE SEEN) Urine Bacteria None/hpf (NONE-FEW) Urine Hyaline Casts None/lpf (NONE) Urine Granular Casts None seen (NONE SEEN) Urine Waxy Casts None seen (NONE SEEN) Urine Red Blood Cell Casts None seen (NONE SEEN) Urine White Blood Cell Casts None seen (NONE SEEN) Urine Mucus None seen (None Seen) Urine Trichomonas None seen (NONE SEEN) Urine Yeast None (NONE SEEN) Urinalysis Comment None Urine Culture Reflexed Not indicated Metamyelocytes % % (0-0) Myelocytes % % (0-0) Promyelocytes % % (0-0) Blast Cells % % (0-0) Nucleated Red Blood Cells /100 WBC (0-24) Prothrombin Time 10.9sec (8.1-12.5) Prothromb Time International Ratio 1.02ratio Magnesium Level 2.2mg/dL (1.6-2.6) Lipase 48U/L (13-60) Hold Hernández Top Tube Received (Received) White Blood Count 26.5th/mm3 (3.8-10.1) Red Blood Count 4.09mil/mm3 (4.40-5.80) Hemoglobin 12.5g/dL (13.8-17.2) Hematocrit 37.5% (41.0-50.0) Mean Corpuscular Volume 91.7fL (81-100) Mean Corpuscular Hemoglobin 30.6pg (27.0-35.0) Mean Corpuscular Hemoglobin Concent 33.3% (32.0-37.0) Red Cell Distribution Width 13.2% (12.3-15.4) Platelet Count 96bil/L (150-400) Neutrophils (%) (Auto) 18% (40-74) Lymphocytes (%) (Auto) 79% (14-46) Monocytes (%) (Auto) 2% (4-12) Eosinophils (%) (Auto) 1% (0-5) Basophils (%) (Auto) 0% (0-3) Band Neutrophils % 1% (1-5) Hematology Comments Sodium Level 139mEq/L (134-144) Potassium Level 4.5mEq/L (3.5-5.2) Chloride Level 102mEq/L (97-108) Carbon Dioxide Level 21mmol/L (18-29) Blood Urea Nitrogen 21mg/dL (8-27) Creatinine 1.66mg/dL (0.76-1.27) Estimat Glomerular Filtration Rate 43mL/min (>59) Glucose Level 96mg/dL (60-99) Calcium Level 8.6mg/dL (8.5-10.1) Total Bilirubin 0.5mg/dL (0.0-1.2) Aspartate Amino Transf (AST/SGOT) 17U/L (0-50) Alanine Aminotransferase (ALT/SGPT) 15U/L (0-44) Alkaline Phosphatase 52U/L (25-160) Total Protein 5.6g/dL (6.4-8.4) Albumin 3.6g/dL (3.4-5.0) Discharge Medications Discharge Medications Alpha Lipoic Acid (Alpha Lipoic Acid) 100 Mg Capsule 300 MG PO HS (Reported) Aspirin (Aspirin) 325 Mg Tablet 81 MG PO HS Prescribed by: DARLIN BALLARD MD Cholecalciferol (Vitamin D3) (Vitamin D3) 1,000 Unit Tab.chew 1,000 UNIT PO QAM (Reported) Cholestyramine/Aspartame (Cholestyramine Light Packet) 4 Gm Powd.pack 2 GM PO DAILYWD (Reported) TAKES AT 4 PM Cyanocobalamin (Vitamin B12) 500 Mcg Tablet 500 MCG PO QAM (Reported) Finasteride (Finasteride) 5 Mg Tablet 5 MG PO HS (Reported) Flecainide Acetate (Flecainide Acetate) 100 Mg Tablet 100 MG PO BID (Reported) Metoprolol Tartrate (Metoprolol Tartrate) 100 Mg Tablet 100 MG PO BID Prescribed by: NILSON BLAKE MD Pravastatin (Pravastatin) 20 Mg Tablet 20 MG PO HS (Reported) Tamsulosin (Flomax) 0.4 Mg Capsule 0.4 MG PO BID (Reported) As needed Polyethylene Glycol 3350 (Miralax) 17 Gm Powd.pack 17 GM PO DAILY PRN PRN For Constipation (Reported) Followup Plan Follow-up plan Patient is to follow-up with outpatient urology, Dr. Clay. We will also arrange an outpatient appointment with Dr. Lopez, hematology oncology Discharge Diet: Heart Healthy Discharge Activity: Other (progresses tolerated) Follow-up Provider: Dario Mcwilliams MD Follow-up with PCP in: 1 week Darlin Ballard MD Mar 31, 2017 12:02 Darlin Ballard MD Mar 31, 2017 12:02
--- NOTE | 2017-03-31 12:04 | CONS ---
[address] [address] CONSULTATION REPORT PATIENT: JEYSON AARON : 1940 MR#: [id number] ADMIT: 03/30/2017 JOB ID: [id number] DATE OF SERVICE: 03/31/2017 HISTORY: The patient is a very pleasant, 76-year-old, white male who was admitted to [facility] from [facility] for gross hematuria and mild acute on chronic kidney injury. Renal consultation is being sought for further evaluation of his hematuria and acute kidney injury. He has a recent history of a urinary tract infection which cultures grew out Strep viridans. He was treated with ceftriaxone and was subsequently discharged to [facility] for rehabilitation. He also has an extensive history of benign prostatic hypertrophy and recurrent urinary tract infections. About three days prior to his admission he began to complain of gross hematuria. He denied any associated difficulties with urination, denying any history of any recent dysuria, frequency, or urgency. The patient does have some memory issues and I have confirmed some of his historical findings with his history and physical, Dr. March consult from Hematology Oncology and the Urology consult. He had been on Plavix for some time and this had been discontinued several days prior to admission without improvement in his hematuria. He had been seen by Dr. Clay about five weeks ago and had undergone a cystoscopy and according to the records no biopsies were done. He has also had some pelvic and abdominal lymphadenopathy noted on several CT scans. Aside from his urological issues detailed above. There is a remote history of frequent use of nonsteroidal anti-inflammatories and acetaminophen. However, he states that he has not used any nonsteroidals in some time. There is no history of any use of proton pump inhibitors, hepatitis, rheumatoid arthritis, or lupus. He is prediabetic, but states that he does not have a history of any prior medical treatment for his diabetes. Furthermore, he denies a history of any proteinuria or renal lithiasis. He denies any recent headache, visual disturbances, chest pain, shortness of breath, cough, wheezing, nausea, vomiting, constipation, diarrhea, fever, chills, or rashes. He denies any abdominal discomfort. Furthermore, he denies any history of any back pain, but has had some issues with decreased memory. 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 He also has a history of pre-diabetes however, he is not being treated for this. 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 ALLERGIES: He is not allergic to any medications, but is allergic to macadamia nut oil. SOCIAL HISTORY: He states he drinks one drink a day and denies use of tobacco. He is currently a resident at [facility], for which he is getting rehabilitation. REVIEW OF SYSTEMS: Detailed above. MEDICATIONS: At time of my evaluation include: 1. Cholestyramine. 2. Vitamin B12. 3. Pepcid. 4. Finasteride. 5. Flecainide. 6. Metoprolol. 7. Pravastatin. 8. Tamsulosin. PHYSICAL EXAMINATION: Revealed a well-developed, mildly obese, 76-year-old, white male who was alert and oriented x3, in no distress at time of my evaluation. Blood pressure is 111/70 with a pulse rate of 70. HEENT examination is remarkable for pale sclerae. There is also some mild conjunctival injection noted in both eye grounds. Mucous membranes were moist. Neck is supple without adenopathy, thyromegaly, or jugular venous distention. Lungs are clear to auscultation. Heart was irregularly irregular. Abdomen is soft with diminished bowel sounds. There was no tenderness, rebound, guarding, masses, or hepatosplenomegaly. Extremities do not show any evidence of any clubbing, cyanosis, or edema. Half and half nails were noted. Skin turgor was slightly diminished and there is no evidence of any rashes. LABORATORY EXAMINATION: This morning his sodium is 139, potassium 4.5, chloride 102, bicarbonate 21. BUN and creatinine were 21 and 1.66. Liver function studies were unremarkable. His white count was 26.5 with a hemoglobin of 12.5. Red cell indices were normal, however, his platelet count was 96,000. Differential showed 18% neutrophils, 79 segs, and two monocytes. Urinalysis showed a specific gravity 1.020, pH was 6. There was large protein and large occult blood, and microscopic examination showed packed RBCs and 0-5 white cells per high-power field. There were no casts noted. IMPRESSION: 1. Mild acute kidney injury secondary to dehydration which appears to be resolving. 2. Gross hematuria which is most likely urologic in origin. 3. Chronic kidney disease stage III. 4. Hypertension with hypertensive heart disease and hypertensive nephrosclerosis. RECOMMENDATION: 1. I would like to check urine free eosinophils in light of his recent history of antibiotic use. I would be suspicious of a possible component of acute interstitial nephritis. 2. Most likely the hematuria is urological in origin, and I feel he would be a very poor candidate for a renal biopsy as this is likely explained by other means. 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 I would also like to obtain a uric acid level and continue to follow his lab. I would also like to start some cautious IV hydration. Once again, I would like to thank you for allowing me to participate in the care of this most pleasant, but somewhat unfortunate patient. I will be following him closely with you.
--- NOTE | 2017-03-31 14:30 | NUR ---
Case Management: RICE given and explained to pt and . Any STOKES RN
[2017-03-31] MEDS ORDERED: Cholestyramine Resin Powder 4 Gm Packet PO SCH (15:00)
--- NOTE | 2017-03-31 15:04 | NUR ---
ALF TRANSFER : Faxed orders to [facility] and placed copy in the chart, is transporting patient and [facility] is aware. Updated TOOL OR DIE DRAWING CHECKER
--- NOTE | 2017-03-31 15:09 | NUR ---
Discharge Patient discharged to [facility]. Per Case management, no report needed to be called. [facility] aware patient is returning. IV DC'd and intact. Discharge instructions given with no questions. No RX sent with patient. Appointment made to see Dr. Lopez on , April 03 at 1500. Patient made appointment with Dr. Clay. Patients gathered all belongings. INSTALLATION HELPER escorted patient out via W/C.
--- NOTE | 2017-03-31 16:04 | NUR ---
Social Work: Initial Assessment/Discharge/Multi-Disciplinary Rounds D: EMR reviewed. Please see Initial Assessment linked to this note for more information. Pt is a 76 y/o male admitted [facility] - no readmit risk score assigned - for hematuria and kidney injury per H&P. Pt's insurance is Medicare and [employer] Supplemental. PCP is Hunter Carvalho MD. SW met with pt and spouse at bedside to conduct initial assessment. Pt was alert and oriented x3. SW explained role and wrote phone number on white board. SW provided [facility] Discharge Planning Checklist and encouraged pt to contact SW for any discharge planning questions. Pt discussed in multidisciplinary rounds. Pt is medically stable for discharge at this time. SW requested MD order for pt to return to SNF - MD agreeable. Pt reported that she has completed DPOA/advanced directive ppw and SW encouraged pt to provide a copy to the hospital. A: Pt who currently resides at [facility] rehab and is medically stable for return to SNF per MD. P: Pt to discharge back to [facility] at 1645 today via wheelchair van. Pt and abdirahman updated. RN/UA updated. All agreeable to plan. Riddler Operator completed transfer packet and left at RN station. No other SW needs identified at this time. No other MD orders received. LORENE Humphrey Addendum: 03/31/17 at 1623 by DEO FIGUEROA SS Amended: Links added. Addendum: 03/31/17 at 1624 by DEO FIGUEROA SS Pt cancelled transport via wheelchair van. Spouse agreeable to transport. MD agreeable. Spouse transferred pt at 1530 today.
--- NOTE | 2017-04-01 11:00 | PATH ---
FLOW CYTOMETRY REPORT Attending Physician:Alan Lopez M.D. ([facility]) EXTENSION FORESTER RESULT DISPLAY AND UNSIGNED HARD COPIES ARE UNOFFICIAL. CASE STATUS: Signed Out DATE COLLECTED:03/31/2017 12:21 SPECIMEN: Peripheral Blood CLINICAL HISTORY: LYMPHOCYTOSIS, THORMBOCYTOPENIA, SUSPECT CLL FINAL DIAGNOSIS: Peripheral Blood: WBC: Atypical lymphocytosis with immunophenotypic characteristics typical of chronic lymphocytic leukemia/small lymphocytic lymphoma; please see comment. RBC: No abnormality. Platelets: Thrombocytopenia with no associated morphologic abnormality. ICD10: C91.1 NOTE: The morphologic findings of an atypical lymphocytosis correlate with the flow cytometric findings showing an abnormal CD5-positive, lambda-restricted monoclonal B-cell population with immunophenotypic characteristics of CLL/SLL. The morphology of the lymphocytes is more atypical than usually seen in most cases of CLL/SLL. In many cases, the atypical morphologic features correlate with FISH abnormalities such as trisomy 12. Therefore, a CLL FISH panel is recommended for prognostic characterization. Flow Interpretation: ([id number]) Peripheral blood: Abnormal CD5+ lambda-restricted monoclonal B-cell population with immunophenotypic characteristics typical of chronic lymphocytic leukemia/small lymphocytic lymphoma comprising 68% of the total WBC; see Comment. Flow Comment: Flow cytometric analysis of the peripheral blood shows an abnormal population of CD5+ lambda-restricted monoclonal B cells expressing CD19, CD20(intermediate), CD22, CD23(uniform) and CD11c (dim/partial). The abnormal B cells are negative for CD10, FMC7 and CD103. The overall immunophenotypic characteristics are typical of chronic lymphocytic leukemia/small lymphocytic lymphoma (CLL/SLL). Of note, CD38 is expressed by 84% of the abnormal B cells consistent with overexpression for the purposes of prognostic grouping. The abnormal B cells comprise 90% of the lymphocytes and 68% of the total WBC which corresponds with an absolute abnormal B-cell count of about 18,000/uL. This is sufficient to support a new diagnosis of CLL/SLL in the absence of lymphadenopathy, hepatosplenomegaly or other evidence of tissue involvement. A CLL FISH panel is recommended to obtain additional prognostic information and to exclude the diagnosis of mantle cell lymphoma although this is not suggested by the immunophenotypic profile. There is no abnormal T-cell, granulocyte, monocyte or blast population detected. GROSS DESCRIPTION: RECEIVED ONE GREEN TOP TUBE RECEIVED ONE PERIPHERAL SLIDE ACCOMPANYING SPECIMEN IS REQUISITION FOR FLOW CYTOMETRY MICRO DESCRIPTION: Review of the peripheral smear shows an atypical lymphocytosis in which the atypical lymphocytes are of intermediate size with irregular nuclear contours, moderate cytoplasm, and variably sized nucleoli. The atypical lymphocytes are present in a background of a moderate number of smudge cells. RBC are normocytic without any morphologic abnormality. Platelets are decreased, but no morphologic abnormality is noted. ICD-9 CODES: Electronically Signed Out Ángel Jackson MD, PhD [facility] [address], [place] [address] Technical component performed at [facility], [facility] [address], [place], [address]
== END 2017-03-31 15:06 ==
LOC: EDBD 15:57 → SED 15:57 → OSC 20:04
PROVIDERS: ADMIT Internal Medicine; ATTEND Specialist
DX: C91.10 Chronic lymphocytic leukemia of B-cell type not having achieved remission (principal); N39.0 Urinary tract infection, site not specified; R31.0 Gross hematuria; I12.9 Hypertensive chronic kidney disease with stage 1 through stage 4 chronic kidney disease, or unspecified chronic kidney disease; N18.3 Chronic kidney disease, stage 3 (moderate); E86.0 Dehydration; I48.91 Unspecified atrial fibrillation; E78.5 Hyperlipidemia, unspecified; E11.9 Type 2 diabetes mellitus without complications; N40.0 Benign prostatic hyperplasia without lower urinary tract symptoms; D69.6 Thrombocytopenia, unspecified; N28.9 Disorder of kidney and ureter, unspecified; Z87.891 Personal history of nicotine dependence; Z66 Do not resuscitate
CPT/HCPCS: 36415; 74176; 80053; 81000; 82784; 83036; 83690; 83735; 85025; 85610; 87205; 99285; G0378; J1815